=== PATIENT | female | born 1990 | race Caucasian/White ===

== ENCOUNTER 2019-08-15 11:17 | Outpatient (CLI) | payer OTHER, SELFPAY ==
[2019-08-15] VITALS (7 sets, daily range): BP systolic 116–124; BP diastolic 69–73; PULSE 80–92
[2019-08-15 11:55] LABS: Basophils Percent Auto 0.2 % (0.2-1.2); Eosinophils Absolute Auto 0.1 K/mm3 (0-0.3); Eosinophils Percent Auto 0.7 % (0-4.4); Hemoglobin 10.6 g/dL (12.0-15.0); Immature Granulocyte Absolute 0.06 K/mm3 (0.00-0.031); Immature Granulocyte Percent A 0.7 % (0-0.5); Lymphocytes Absolute Auto 1.51 K/mm3 (0.9-3.2); Mean Corpuscular HGB Conc 34.2 g/dl (32-36); Mean Corpuscular Hemoglobin 32.7 pg (26-34); Mean Corpuscular Volume 95.7 fl (80-100); Mean Platelet Volume 10.2 fl (7.4-10.4); Monocytes Absolute Auto 0.5 K/mm3 (0.1-0.6); Monocytes Percent Auto 5.9 % (2.6-8.5); Neutrophils Absolute Auto 6.7 K/mm3 (1.3-6.7); Neutrophils Percent Auto 75.5 % (45.5-73.1); Platelet Count Result 234 k/mm3 (150-375); Red Blood Count 3.24 M/mm3 (4.2-5.4); Red Cell Distribution Width 12.6 % (11.5-14.5); White Blood Count 8.9 K/mm3 (4.5-10.0)
[2019-08-15 12:05] LABS: Add Urine Microscopic? YES; Appearance Urine Clear (Clear); Bacteria Urine Trace /hpf; Bilirubin Urine Negative (Negative); Blood Urine 2+ (Negative); Color Urine Yellow (Yellow); Glucose Urine UA Negative (Negative); Ketones Urine Negative (Negative); Leukocyte Esterase Ur 2+ LEU/UL (NEGATIVE); Mucus Urine Rare /lpf; Nitrate Urine Negative (Negative); Protein Urine Negative (Negative); Squamous Epithelial Cell Urine Few /hpf (Few); Urobilinogen Urine Negative mg/dL (<2.0)
[2019-08-15 12:06] LABS: Alanine Aminotransferase 17 U/L (4-35); Albumin Level 3.2 g/dL (3.5-5.1); Alkaline Phosphatase 156 U/L (38-126); Aspartate Amino Transferase 18 U/L (14-36); Bilirubin,Total 0.5 mg/dL (0.2-1.3); Blood Urea Nitrogen 4 mg/dL (7-17); Calcium 8.2 mg/dL (8.4-10.2); Carbon Dioxide 19 mmol/L (22-30); Chloride 104 mmol/L (98-107); Estimated Glomerular Filt Rate > 60; Glucose 97 mg/dL (65-105); Potassium 3.1 mmol/L (3.4-5.0); Sodium 135 mmol/L (137-145); Uric Acid 5.4 mg/dL (2.5-7.5)
--- NOTE | 2019-08-15 13:34 | PC.NURSE ---
1117-Pt sent over from office for elevated bp. PI orders received.
--- NOTE | 2019-08-15 13:35 | PC.NURSE ---
1257- returned page. Read pt labs and bp's, discharge orders received and pt sent home with 24hr urine collection and instructed to start taking her Keflix again daily until delivery
== END 2019-08-15 13:10 | disposition home or self-care (01) ==
LOC: ANHOBOP 11:23 → ANHOBPP 11:26
PROVIDERS: PCP Family Medicine; Visit Provider Obstetrics & Gynecology
DX: O13.9 Gestational [pregnancy-induced] hypertension without significant proteinuria, unspecified trimester (principal); Z3A.00 Weeks of gestation of pregnancy not specified
CPT/HCPCS: 36415; 59025; 80053; 81001; 84550; 85025; 87086; 87088; 99199

== ENCOUNTER 2019-08-19 12:01 | Observation (INO) | payer OTHER, SELFPAY ==
[2019-08-19] VITALS (7 sets, daily range): BP systolic 114–131; BP diastolic 74–84; PULSE 77–84
[2019-08-19 13:24] LABS: Basophils Percent Auto 0.1 % (0.2-1.2); Eosinophils Absolute Auto 0.1 K/mm3 (0-0.3); Eosinophils Percent Auto 0.5 % (0-4.4); Hematocrit 31.2 % (37.0-47.0); Hemoglobin 10.5 g/dL (12.0-15.0); Immature Granulocyte Absolute 0.05 K/mm3 (0.00-0.031); Immature Granulocyte Percent A 0.5 % (0-0.5); Lymphocytes Absolute Auto 1.54 K/mm3 (0.9-3.2); Lymphocytes Percent Auto 16.5 % (18.3-44.2); Mean Corpuscular HGB Conc 33.7 g/dl (32-36); Mean Corpuscular Hemoglobin 32.5 pg (26-34); Mean Corpuscular Volume 96.6 fl (80-100); Mean Platelet Volume 10.1 fl (7.4-10.4); Monocytes Absolute Auto 0.6 K/mm3 (0.1-0.6); Neutrophils Absolute Auto 7.1 K/mm3 (1.3-6.7); Neutrophils Percent Auto 76.4 % (45.5-73.1); Platelet Count Result 243 k/mm3 (150-375); Red Blood Count 3.23 M/mm3 (4.2-5.4); Red Cell Distribution Width 12.8 % (11.5-14.5); White Blood Count 9.3 K/mm3 (4.5-10.0)
[2019-08-19 13:33] LABS: Creatinine Urine 79.5 mg/dL; Total Protein Urine Random 19 mg/dL
[2019-08-19 13:37] LABS: Lactate Dehydrogenase 410 U/L (313-618)
[2019-08-19 13:41] LABS: Alanine Aminotransferase 17 U/L (4-35); Alkaline Phosphatase 152 U/L (38-126); Aspartate Amino Transferase 19 U/L (14-36); Bilirubin,Total 0.5 mg/dL (0.2-1.3); Blood Urea Nitrogen 5 mg/dL (7-17); Calcium 8.6 mg/dL (8.4-10.2); Carbon Dioxide 24 mmol/L (22-30); Chloride 108 mmol/L (98-107); Estimated Glomerular Filt Rate > 60; Glucose 76 mg/dL (65-105); Potassium 3.9 mmol/L (3.4-5.0); Sodium 135 mmol/L (137-145); Uric Acid 5.2 mg/dL (2.5-7.5)
--- NOTE | 2019-08-22 11:37 | P.PNOB_ITS ---
OB - Triage/Final Diagnosis Evaluation Laboratory results: Laboratory Tests 08/19/19 08/19/19 08/19/19 13:12 13:12 13:12 WBC 9.3 RBC 3.23 L Hgb 10.5 L Hct 31.2 L MCV 96.6 MCH 32.5 MCHC 33.7 RDW 12.8 Plt Count 243 MPV 10.1 Immature Gran % (Auto) 0.5 Neut % (Auto) 76.4 H Lymph % (Auto) 16.5 L [place] % (Auto) 6.0 Eos % (Auto) 0.5 Baso % (Auto) 0.1 L Lymph # (Auto) 1.54 [place] # (Auto) 0.6 Eos # (Auto) 0.1 Baso # (Auto) 0.0 Abs Immat Gran (auto) 0.05 H Absolute Neuts (auto) 7.1 H Absolute Nucleated RBC 0.0 Nucleated RBC % 0.0 Sodium 135 L Potassium 3.9 Chloride 108 H Carbon Dioxide 24 BUN 5 L Creatinine 0.70 Estim Creat Clear Calc Not Reportable Estimated GFR > 60 Glucose 76 Uric Acid 5.2 Calcium 8.6 Total Bilirubin 0.5 AST 19 ALT 17 Alkaline Phosphatase 152 H Lactate Dehydrogenase Total Protein 6.0 L Albumin 3.0 L U Random Total Protein 19 Urine Creatinine 79.5 08/19/19 13:12 WBC RBC Hgb Hct MCV MCH MCHC RDW Plt Count MPV Immature Gran % (Auto) Neut % (Auto) Lymph % (Auto) [place] % (Auto) Eos % (Auto) Baso % (Auto) Lymph # (Auto) [place] # (Auto) Eos # (Auto) Baso # (Auto) Abs Immat Gran (auto) Absolute Neuts (auto) Absolute Nucleated RBC Nucleated RBC % Sodium Potassium Chloride Carbon Dioxide BUN Creatinine Estim Creat Clear Calc Estimated GFR Glucose Uric Acid Calcium Total Bilirubin AST ALT Alkaline Phosphatase Lactate Dehydrogenase 410 Total Protein Albumin U Random Total Protein Urine Creatinine Final Diagnosis (1) False labor: Code(s): O47.9 - False labor, unspecified Status: Acute
== END 2019-08-19 15:00 | disposition home or self-care (01) ==
PROVIDERS: Admitting Provider Obstetrics & Gynecology; PCP Family Medicine; Visit Provider Obstetrics & Gynecology
DX: O47.03 False labor before 37 completed weeks of gestation, third trimester (principal); Z3A.36 36 weeks gestation of pregnancy
CPT/HCPCS: 36415; 80053; 82570; 83615; 84156; 84550; 85025; G0378; G0379

== ENCOUNTER 2019-08-25 17:50 | Inpatient (IN) | payer OTHER, SELFPAY ==
[2019-08-25] VITALS (15 sets, daily range): BP systolic 121–137; BP diastolic 81–101; PULSE 80–105; TEMP 37.2; BMI 34.4
[2019-08-25 18:38] LABS: Basophils Percent Auto 0.2 % (0.2-1.2); Eosinophils Absolute Auto 0.1 K/mm3 (0-0.3); Eosinophils Percent Auto 0.8 % (0-4.4); Hematocrit 32.3 % (37.0-47.0); Immature Granulocyte Absolute 0.06 K/mm3 (0.00-0.031); Immature Granulocyte Percent A 0.6 % (0-0.5); Lymphocytes Percent Auto 18.9 % (18.3-44.2); Mean Corpuscular HGB Conc 34.1 g/dl (32-36); Mean Corpuscular Hemoglobin 32.5 pg (26-34); Mean Corpuscular Volume 95.6 fl (80-100); Mean Platelet Volume 10.3 fl (7.4-10.4); Monocytes Absolute Auto 0.7 K/mm3 (0.1-0.6); Monocytes Percent Auto 6.7 % (2.6-8.5); Neutrophils Absolute Auto 7.3 K/mm3 (1.3-6.7); Neutrophils Percent Auto 72.8 % (45.5-73.1); Platelet Count Result 272 k/mm3 (150-375); Red Blood Count 3.38 M/mm3 (4.2-5.4); Red Cell Distribution Width 12.7 % (11.5-14.5)
[2019-08-25] MEDS: DINOPROSTONE 10 MG VAG INSERT VAGINAL (18:43)
--- NOTE | 2019-08-25 18:52 | LDADM ---
This patient, Erum Wallis, was admitted to Labor/Delivery/Recovery 108 on 08/25/19 at 17:50. Plans for labor, pain management and were discussed with patient. Patient/family oriented to hospital policies and general routines including ID bracelet, bed and alarms, visiting hours, pain management, procedures, bathroom and other care routines, personal items, smoking policy, room service/diet and guest tray routines, infant security routines, and visiting hours. Patient/Family are encouraged to report perceived risks to care and to ask questions if they do not understand what they are told or what they should do. See OBIX for further documentation.
[2019-08-26] VITALS (40 sets, daily range): BP systolic 112–146; BP diastolic 74–97; PULSE 70–112; RESP 16; TEMP 36.6–37.3
[2019-08-26] MEDS: OXYTOCIN 30 UNITS/NS 500 ML 30 UNITS/500 ML BAG IV CONT (07:33)
[2019-08-26] MEDS: LACTATED RINGERS 1,000 ML 125 ML IV CONT (07:33)
--- NOTE | 2019-08-26 11:07 | WPDOBADMIT ---
Obstetrics - Admit Note Admission Note: AROM clear fluid 1/thick/ -2 vertex record reviewed. No pertinent additions to the history and/or any subsequent changes in the physical findings that are not consistent with the expected course of the were found. Additions to the history and/or subsequent changes in the physical findings follow. None.
--- NOTE | 2019-08-26 17:15 | P.PCNOB_ITS ---
OB - Delivery Note Procedure Delivery date: 08/26/19 Procedure: (breech) events: Pre-Eclampsia and Labor Induction Induction method: AROM, per misoprostol protocol and per pitocin protocol Route of delivery: breech extraction Laceration description: None Estimated blood loss (mL): 150 Disposition: floor Complications: Patient noted breech at 6 cm. patient made rapid change and moved to OR for and noted to be . delivered Breech. [place] Baby Date of : 08/26/19 Time of : 16:24 Weeks of gestation at delivery: 37 Infant gender: Female Weight (pounds): 5 Weight (ounces): 6 presentation: reyna breech cord vessel description: 3 Vessels score one minute: 2 score five minutes: 8
--- NOTE | 2019-08-26 17:19 | PM.OBDSVD ---
OB - DS: Summary OB Procedures : NST, PIH Mgmt and Ultrasound OB Procedures Intrapartum: Spontaneous Vag Delivery and Breech extraction OB Procedures: : None Peripartum Data Infant Delivery Method: Natural Vaginal Laceration description: None complications: none Status at Discharge Overall status at discharge: patient is progressing back to baseline Time Spent with Patient Time attestation: Total time spent providing and/or coordinating discharge services: DS: Data Data Completed and Pending Labs on day of discharge: Labs from last 24 hours 08/25/19 08/25/19 08/25/19 18:32 18:32 18:32 WBC 10.0 RBC 3.38 L Hgb 11.0 L Hct 32.3 L MCV 95.6 MCH 32.5 MCHC 34.1 RDW 12.7 Plt Count 272 MPV 10.3 Immature Gran % (Auto) 0.6 H Neut % (Auto) 72.8 Lymph % (Auto) 18.9 [place] % (Auto) 6.7 Eos % (Auto) 0.8 Baso % (Auto) 0.2 Lymph # (Auto) 1.90 [place] # (Auto) 0.7 H Eos # (Auto) 0.1 Baso # (Auto) 0.0 Abs Immat Gran (auto) 0.06 H Absolute Neuts (auto) 7.3 H Absolute Nucleated RBC 0.0 Nucleated RBC % 0.0 RPR Pending Blood Type O Positive Antibody Screen Negative Discharge Plan Discharge Attending physician on discharge: Jah Zarate Discharging Clinician: Marialuisa Mac Anticipated Discharge Date/Time: 08/28/19 07:53 Patient Disposition: Home, Self-Care Activity: may shower and pelvic rest Diet: regular Discharge Instructions: Education: Mom and Baby Guide Given to: Mother Follow-Up: Call your delivering provider's office for an appointment to be seen in: 1 Week Mom and baby should come to the [facility] for the follow-up appointment. Appointment Date/Time: August 29, 2019 at 10:00 am What to expect at your follow-up visit: Blood Pressure Check Call [phone] if you are unable to keep your appointment time. BREAST CARE: 1. Wear a snug supportive bra. 2. For engorgement discomfort: Bottle Feeding: A. May apply ice packs PERINEAL CARE: 1. Until bleeding stops, use your kristina bottle after urinating 2. Change your pad frequently throughout the day 3. You may take sitz baths several times a day (fill your bathtub with warm water and soak for 20 minutes.) Do NOT bathe in the water 4. No tub baths until seen by your physician - You may shower ACTIVITY: 1. Rest as much as possible. 2. Do not exercise or lift anything heavier than your baby (such as laundry or other children.) 3. Avoid stairs or driving as much as possible. 4. Do not put anything into the vagina. No douching, tampons, or sexual activity until seen by physician. NOTIFY PHYSICIAN IF YOU HAVE ANY QUESTIONS OR IF ANY OF THE FOLLOWING SYMPTOMS OCCUR: 1. If your perineum becomes red, swollen, or more painful than what you have experienced in the hospital. 2. If your vaginal bleeding becomes foul smelling. 3. If your vaginal bleeding becomes more heavy than a period or if your bleeding changes from pink to bright red. However, you may pass an occasional walnut-sized clot once or twice for the first week . 4. If you experience a sharp, shooting pain in you calves. 5. If you discover a hard, reddened area on your breast or if you experience flu-like symptoms. 6. Call for temp 100.4 or greater DIET: 1. Eat regular, well-balanced meals. 2. Drink plenty of fluids daily. If , drink to thirst. Patient Instructions: Antibiotic Form Stand Alone Forms: General Discharge Information Follow-up/Referrals: Jah Zarate MD [Physician] - 1 Week Discharge Medications: New norethindrone ac-eth estradiol [07/02 (21)] 1-20 mg-mcg tablet 1 tablet PO DAILY Qty: 21 RF: 6 Continued PNV cmb#95-ferrous fumarate-FA [] 28 mg iron- 800 mcg Tablet 1 tablet PO DAILY RF: 0 Date of admission: 08/25/19 17:50 Primary Care Provider: Teresa
[2019-08-26] MEDS: IBUPROFEN 600 MG TABLET PO (17:23)
[2019-08-26] MEDS: OXYTOCIN 30 UNITS/NS 500 ML 30 UNITS/500 ML BAG 125 UNITS IV CONT (17:23)
[2019-08-26] MEDS: BENZOCAINE 20% AER SPR (*SP) 56 GM CAN 1 SPRAY TOPICAL (17:24)
[2019-08-26] MEDS: WITCH HAZEL 40 PADS 1 PAD TOPICAL (17:24)
[2019-08-27] MEDS: IBUPROFEN 600 MG TABLET PO ×3 (04:40→20:29)
[2019-08-27 05:27] LABS: Hematocrit 30.2 % (37.0-47.0); Hemoglobin 10.1 g/dL (12.0-15.0)
[2019-08-27 07:30] VITALS: BP 137/90; PULSE 82; RESP 18; TEMP 36.9
--- NOTE | 2019-08-27 08:26 | P.PNOB_ITS ---
OB - PN: Subj Subjective Date/time seen: 08/27/19 08:26 Patient comments: no complaints and pain well controlled OB - PN: Obj Data Labs CBC & Chem 7: 08/27/19 04:35 Labs: Laboratory Results - last 24 hr 08/27/19 04:35 Hgb 10.1 L Hct 30.2 L OB - PN A/P Assessment and Plan (1) Preeclampsia: Code(s): O14.90 - Unspecified pre-eclampsia, unspecified trimester Status: Acute Assessment and Plan: BP normal no symptoms (2) (normal spontaneous vaginal delivery): Code(s): O80 - Encounter for full-term uncomplicated delivery Status: Acute Assessment and Plan: Doing well. Continue care Time Spent With Patient Time: Total time spent is greater than 50% in coordination of care (as d ocumented) at patient's floor/unit and/or counseling patient: Exam : Bimanual exam- vagina & uterus: other (Uterus firm, nt @U)
[2019-08-27 09:40] LABS: Rapid Plasma Reagin Non-Reactive (NonReactive)
[2019-08-27 19:18] VITALS: BP 125/86; PULSE 90; RESP 16; TEMP 36.8
[2019-08-28 07:50] VITALS: BP 128/80; PULSE 82; RESP 18; TEMP 37.2; O2SAT 99
--- NOTE | 2019-08-28 07:51 | PM.OBPNVD ---
OB - PN: Subj Subjective Date/time seen: 08/28/19 07:51 Patient comments: no complaints baby status: doing well [place] feeding status: exclusively bottle feeding OB - PN: Obj Data Labs CBC & Chem 7: 08/27/19 04:35 Labs: Laboratory Results - last 24 hr 08/25/19 18:32 RPR Non-reactive OB - PN A/P Assessment and Plan (1) (normal spontaneous vaginal delivery): Code(s): O80 - Encounter for full-term uncomplicated delivery Status: Acute Assessment and Plan: Doing well. DC home. Plans 07/02 (2) Preeclampsia: Code(s): O14.90 - Unspecified pre-eclampsia, unspecified trimester Status: Acute Assessment and Plan: BP stable. F/u 1 wk Plan day: 2 Plan: discharge home Time Spent With Patient Time: Total time spent is greater than 50% in coordination of care (as documented) at patient's floor/unit and/or counseling patient: Exam : Bimanual exam- vagina & uterus: other (Uterus firm, nt @U)
[2019-08-28 09:30] VITALS: PULSE 82; RESP 18; O2SAT 99
--- NOTE | 2019-08-28 09:30 | PC.NURSE ---
PT introductions made and plan of care discussed per post , pain management, bottle feeding, daily care activities and pending discharge to home. PT verbalized understanding of such care.
[2019-08-28] MEDS: IBUPROFEN 600 MG TABLET PO (09:40)
[2019-08-28] MEDS: DOCUSATE SODIUM 100 MG CAPSULE PO (09:41)
--- NOTE | 2019-08-28 11:00 | PC.NURSE ---
Pt received discharge instructions per protocol and verbalized understanding of such instructions.
--- NOTE | 2019-08-28 11:30 | PC.NURSE ---
PT discharged to home ambulatory accompanied by spouse and to waiting car. Follow up appts confirmed
[2019-08-29 10:14] VITALS: BP 127/78; PULSE 68; RESP 20; TEMP 36.8
== END 2019-08-28 11:30 | disposition home or self-care (01) | DRG 560 ==
LOC: ANHLDR 08-26 17:19 → ANHOB2 08-28 07:54 → ANHLDR 08-29 09:05 → ANHOB2 08-29 09:05
PROVIDERS: Admitting Provider Obstetrics & Gynecology; PCP Family Medicine; Visit Provider Obstetrics & Gynecology Gynecology
DX: O14.94 Unspecified pre-eclampsia, complicating childbirth (principal); Z37.0 Single live birth; Z3A.37 37 weeks gestation of pregnancy; O32.1XX0 Maternal care for breech presentation, not applicable or unspecified; O76 Abnormality in fetal heart rate and rhythm complicating labor and delivery
CPT/HCPCS: 36415; 85014; 85018; 85025; 86592; 86850; 86900; 86901; 88307; A9270; J2274; J2590; J7120

== ENCOUNTER 2019-12-28 16:06 | Outpatient (CLI) | payer OTHER, SELFPAY ==
--- NOTE | ~2019-12-28 | US_ITS ---
. EXAMINATION: US OB <= 14 weeks fetus DATE: 12/28/2019 16:58 INDICATION: Uncertain dates. TECHNIQUE: Real-time transabdominal pelvic ultrasound was performed. COMPARISON: None. FINDINGS: The uterus measures 14.7 x 7.3 x 8.5 cm. There is an intrauterine gestational sac. The crown ru mp length measures 3.6 cm, which correlates with an estimated gestational age of 10 weeks and 4 day(s ) (+/-) 1 week(s) and 0 day(s). heart motion is identified measuring 163 beats per minute (bpm) by M-mode Doppler. The ovaries are not visualized. There is no free fluid in the pelvis. IMPRESSION: 1. Single living intrauterine gestation with estimated date of delivery of 07/21/2020. Reviewed, dictated and finalized at location A. IMPRESSION: 1. Single living intrauterine gestation with estimated date of delivery of 07/21.
== END 2019-12-28 16:07 | disposition home or self-care (01) ==
LOC: ANHIMG 16:12
PROVIDERS: PCP Family Medicine; Visit Provider Obstetrics & Gynecology
DX: Z36.9 Encounter for antenatal screening, unspecified (principal); Z3A.10 10 weeks gestation of pregnancy
CPT/HCPCS: 76801

== ENCOUNTER 2020-01-06 13:28 | Outpatient (CLI) | payer OTHER, SELFPAY ==
[2020-01-06 13:46] VITALS: BMI 35.1
[2020-01-06 14:14] LABS: Basophils Percent Auto 0.2 % (0.2-1.2); Eosinophils Absolute Auto 0.1 K/mm3 (0-0.3); Eosinophils Percent Auto 0.7 % (0-4.4); Hematocrit 36.4 % (37.0-47.0); Hemoglobin 12.7 g/dL (12.0-15.0); Immature Granulocyte Absolute 0.02 K/mm3 (0.00-0.031); Immature Granulocyte Percent A 0.2 % (0-0.5); Lymphocytes Absolute Auto 1.45 K/mm3 (0.9-3.2); Lymphocytes Percent Auto 17.4 % (18.3-44.2); Mean Corpuscular HGB Conc 34.9 g/dl (32-36); Mean Corpuscular Hemoglobin 32.2 pg (26-34); Mean Corpuscular Volume 92.4 fl (80-100); Mean Platelet Volume 10.3 fl (7.4-10.4); Monocytes Absolute Auto 0.4 K/mm3 (0.1-0.6); Neutrophils Absolute Auto 6.4 K/mm3 (1.3-6.7); Neutrophils Percent Auto 76.5 % (45.5-73.1); Platelet Count Result 252 k/mm3 (150-375); Red Blood Count 3.94 M/mm3 (4.2-5.4); Red Cell Distribution Width 12.3 % (11.5-14.5); White Blood Count 8.4 K/mm3 (4.5-10.0)
[2020-01-06 14:24] LABS: Partial Thromboplastin Time 31.2 SECONDS (22.3-36.8)
[2020-01-06 14:38] LABS: Alanine Aminotransferase 18 U/L (4-35); Albumin Level 3.7 g/dL (3.5-5.1); Alkaline Phosphatase 75 U/L (38-126); Anion Gap 12.6 mmol/L (7-16); Aspartate Amino Transferase 18 U/L (14-36); Bilirubin,Total 0.4 mg/dL (0.2-1.3); Blood Urea Nitrogen 11 mg/dL (7-17); Carbon Dioxide 22 mmol/L (22-30); Chloride 104 mmol/L (98-107); Estimated CRCL calculation 126 ml/min; Estimated Glomerular Filt Rate > 60; Glucose 109 mg/dL (65-105); Potassium 3.6 mmol/L (3.4-5.0); Sodium 135 mmol/L (137-145); Uric Acid 4.2 mg/dL (2.5-7.5)
[2020-01-06 14:47] LABS: Lactate Dehydrogenase 347 U/L (313-618)
[2020-01-06 14:54] LABS: Collection Time Urine 24 HOURS
[2020-01-06 14:56] LABS: Total Volume 24 Hour Urine 1700 ml
[2020-01-06 14:57] LABS: Patient Weight 198 Lbs
[2020-01-06 15:02] LABS: Vitamin D 25 Hydroxy 31.8 ng/mL
[2020-01-06 15:07] LABS: HIV 1/2 Ab P24 Ag Result Negative (Negative)
[2020-01-06 15:08] LABS: Creatinine Clearance Urine 131.1 ml/min (75-125); Creatinine Urine 73.9 mg/dL; Total Protein Urine 24 Hr 255 MG/DAY (28-141); Total Protein Urine Random 15 mg/dL
[2020-01-06 15:24] LABS: Hepatitis B Surface Antigen Negative (Negative); Rubella IgG Antibody 11.1 IU/ML
[2020-01-07 10:07] LABS: Rapid Plasma Reagin Non-Reactive (NonReactive)
[2020-01-07 13:16] LABS: Hemoglobin A1C 4.7 % (<5.7)
== END 2020-01-06 13:29 | disposition home or self-care (01) ==
LOC: ANHOBOP 13:34
PROVIDERS: PCP Family Medicine; Visit Provider Obstetrics & Gynecology
DX: O13.9 Gestational [pregnancy-induced] hypertension without significant proteinuria, unspecified trimester (principal); Z3A.00 Weeks of gestation of pregnancy not specified
CPT/HCPCS: 36415; 80053; 81050; 82306; 82575; 83036; 83615; 84156; 84550; 85025; 85730; 86592; 86703; 86762; 86850; 86900; 86901; 87340; G0432

== ENCOUNTER 2020-02-05 18:56 | Emergency (ER) | payer OTHER, SELFPAY ==
[2020-02-05 19:03] VITALS: BP 134/80; PULSE 95; RESP 16; TEMP 36.7; O2SAT 99
--- NOTE | 2020-02-05 19:18 | PC.NURSE ---
pt c/o abdominal cramping, dysuria and frequency. hx of UTI's. pt states she is currently 16 weeks . denies any vaginal bleeding. denies any other sx at this time.
[2020-02-05 19:21] LABS: Add Urine Microscopic? YES; Appearance Urine Cloudy (Clear); Bacteria Urine Trace /hpf; Bilirubin Urine Negative (Negative); Blood Urine 1+ (Negative); Color Urine Yellow (Yellow); Glucose Urine UA Negative (Negative); Ketones Urine Negative (Negative); Leukocyte Esterase Ur 1+ LEU/UL (Negative); Mucus Urine Rare /lpf; Nitrate Urine Negative (Negative); Protein Urine Negative (Negative); RBC Urine 21-50 /hpf (0-2); Specific Grav Ur 1.016 (1.001-1.035); Squamous Epithelial Cell Urine Moderate /hpf (Few); Urobilinogen Urine Negative mg/dL (<2.0)
[2020-02-05 20:07] VITALS: PULSE 78; RESP 18; O2SAT 99
--- NOTE | 2020-02-05 20:13 | ED.FEMALEGU ---
HPI - Female Genitourinary General Chief complaint: Urogenital-Female <Courtney Lee PA-C - Last Filed: 02/05/20 20:16> Stated complaint: uti, 16 wks . <Courtney Lee PA-C - Last Filed: 02/05/20 20:16> Time Seen by Provider: 02/05/20 19:14 <Courtney Lee PA-C - Last Filed: 02/05/20 20:16> Source: patient <Courtney Lee PA-C - Last Filed: 02/05/20 20:16> Mode of arrival: ambulatory <MIGUEL Field Last Filed: 02/05/20 20:16> Limitations: no limitations <Courtney Lee PA-C - Last Filed: 02/05/20 20:16> History of Present Illness HPI Narrative: Patient presents with chief complaint of burning with urination and frequency that began this morning. Patient states that she is 16 weeks . Patient denies noting blood in her urine or abnormal color. Patient denies fever, chills, nausea, vomiting, diarrhea or any other symptoms. Patient denies vaginal bleeding or discharge. Patient states her FURNITURE MOVER is Dr. Zarate. <Courtney Lee PA-C - Last Filed: 02/05/20 20:16> Related Data Home medications: Home Medications Medication Instructions Recorded Confirmed PNV cmb#95-ferrous fumarate-FA 1 tablet PO DAILY 08/18/19 08/18/19 [] <Courtney Lee PA-C - Last Filed: 02/05/20 20:16> Allergies/Adverse reactions: Allergies Allergy/AdvReac Type Severity Reaction Status Date / Time Penicillins Allergy Unknown Hives Verified 02/05/20 18:58 <MIGUEL Field Last Filed: 02/05/20 20:16> Review of Systems Review of Systems: Narrative: CONSTITUTIONAL: Denies fever, chills, or sweats. EYES: Denies visual changes, redness, or discharge. ENT: Denies rhinorrhea, congestion, sore throat, or otalgia. CARDIOVASCULAR: Denies chest pain, palpitations, or edema. RESPIRATORY: Denies cough or dyspnea. GASTROINTESTINAL: Denies abdominal pain or diarrhea. GENITOURINARY: Reports dysuria denies hematuria. SKIN: Denies rash or itching. MUSCULOSKELETAL: Denies back pain, joint pain, or myalgia. NEUROLOGIC: Denies headache, numbness, dizziness, or weakness. PSYCHIATRIC: Denies anxiety or depression. <Courtney Lee PA-C - Last Filed: 02/05/20 20:16> PMFSH Family History Family History: Family History (Updated 08/18/19 @ 13:26 by Cesar Grant RN) Other No pertinent family history <Courtney Lee PA-C - Last Filed: 02/05/20 20:16> Social History Social History: Social History Smoking status: Never smoker Second hand tobacco smoke exposure: No Alcohol intake: never Substance use: never Gender identity (if verbalized by the patient): Female Spiritual care concerns: No <Courtney Lee PA-C - Last Filed: 02/05/20 20:16> Exam Narrative: Exam Narrative: GENERAL: Well-appearing, well-nourished, and in no acute distress. HEAD: Normocephalic, atraumatic. EYES: PERRLA and EOMI. ENT: Nares clear, no rhinorrhea or epistaxis. Mucous membranes moist. Oropharynx without tonsillar hypertrophy exudate or other lesions. Bilateral TMs pearly gonsales nonbulging NECK: Supple. No adenopathy or masses. No carotid bruits or JVD CHEST: Clear to auscultation. No respiratory distress. No wheezes rales or rhonchi HEART: Regular rate and rhythm. ABDOMEN: Soft, nontender, nondistended, normal active bowel sounds. EXTREMITIES: Normal range of motion. No edema. SKIN: Warm, dry, no rash. NEURO: No focal deficits. Alert and oriented x3. PSYCH: Normal mood and affect. <Courtney Lee PA-C - Last Filed: 02/05/20 20:16> Course Vital Signs Vital signs: Vital Signs Temperature 36.7 C 02/05/20 19:03 Pulse Rate 95 02/05/20 19:03 Respiratory Rate 16 02/05/20 19:03 Blood Pressure 134/80 02/05/20 19:03 Pulse Oximetry 99 02/05/20 19:03 Temperature 36.7 C 02/05/20 19:03 Pulse Rate 78 02/05/20 20:07 Respiratory Rate 18 02/05/20 20:07 Blood Pressure 134/80 02/05/20 19:03 Pulse Oximetry 99 02/05/20
== END 2020-02-05 20:08 | disposition home or self-care (01) ==
PROVIDERS: Emergency Medicine; Emergency Provider Emergency Medicine; PCP Family Medicine
DX: O23.42 Unspecified infection of urinary tract in pregnancy, second trimester (principal); Z3A.16 16 weeks gestation of pregnancy
CPT/HCPCS: 81001; 87086; 87088; 99283

== ENCOUNTER 2020-02-24 15:14 | Outpatient (CLI) | payer OTHER, SELFPAY ==
[2020-02-24 15:28] VITALS: BMI 34.2
[2020-02-24 15:41] LABS: Alanine Aminotransferase 15 U/L (4-35); Albumin Level 3.2 g/dL (3.5-5.1); Alkaline Phosphatase 78 U/L (38-126); Anion Gap 7 mmol/L (8-16); Aspartate Amino Transferase 17 U/L (14-36); Bilirubin,Total 0.4 mg/dL (0.2-1.3); Blood Urea Nitrogen 7 mg/dL (7-17); Calcium 8.4 mg/dL (8.4-10.2); Carbon Dioxide 22 mmol/L (22-30); Chloride 106 mmol/L (98-107); Estimated CRCL calculation 147 ml/min; Estimated Glomerular Filt Rate > 60; Glucose 112 mg/dL (65-105); Potassium 3.7 mmol/L (3.4-5.0); Sodium 135 mmol/L (137-145); Uric Acid 4.1 mg/dL (2.5-7.5)
[2020-02-24 16:54] LABS: Collection Time Urine 24 HOURS
[2020-02-24 17:01] LABS: Patient Weight 193 Lbs
[2020-02-24 17:02] LABS: Total Volume 24 Hour Urine 1500 ml
[2020-02-24 17:12] LABS: Creatinine Urine 72.7 mg/dL; Total Protein Urine 24 Hr 240 MG/DAY (28-141); Total Protein Urine Random 16 mg/dL
== END 2020-02-24 15:15 | disposition home or self-care (01) ==
LOC: ANHOBOP 15:18
PROVIDERS: PCP Family Medicine; Visit Provider Obstetrics & Gynecology
DX: Z36.89 Encounter for other specified antenatal screening (principal); Z87.59 Personal history of other complications of pregnancy, childbirth and the puerperium
CPT/HCPCS: 36415; 80053; 81050; 82575; 84156; 84550

== ENCOUNTER 2020-03-19 19:04 | Observation (INO) | payer OTHER, SELFPAY ==
--- NOTE | 2020-03-19 19:04 | OBADM ---
This patient, Erum Wallis, admitted to the OB room OB Post 116 for observation. Patient/family oriented to hospital policies and general routines including ID bracelet, bed and alarms, visiting hours, pain management, procedures, bathroom and other care routines, personal items, smoking policy, room service/diet, and visiting hours. Patient/Family are encouraged to report perceived risks to care and to ask questions if they do not understand what they are told or what they should do.
[2020-03-19 19:35] VITALS: BMI 33.9
[2020-03-19 19:36] VITALS: BP 108/76; PULSE 92; RESP 20; TEMP 36.6
[2020-03-19 19:46] VITALS: BP 119/74; PULSE 91
[2020-03-19 20:01] VITALS: BP 120/75; PULSE 96
--- NOTE | 2020-04-11 15:56 | PM.OBTRLD ---
OB - Triage/Final Diagnosis Final Diagnosis (1) Fall (on) (from) other stairs and steps, initial encounter: Code(s): W10.8XXA - Fall (on) (from) other stairs and steps, initial encounter Status: Acute
== END 2020-03-19 20:40 | disposition home or self-care (01) ==
PROVIDERS: Admitting Provider Obstetrics & Gynecology; PCP Family Medicine; Visit Provider Obstetrics & Gynecology
DX: O26.899 Other specified pregnancy related conditions, unspecified trimester (principal); W10.8XXA Fall (on) (from) other stairs and steps, initial encounter; Z3A.00 Weeks of gestation of pregnancy not specified
CPT/HCPCS: 84112; G0378; G0379

== ENCOUNTER 2020-06-11 11:55 | Outpatient (RCR) | payer OTHER, SELFPAY ==
[2020-06-03 17:03] VITALS: BP 122/79; PULSE 104
[2020-06-07 09:31] VITALS: BP 134/67; PULSE 99
--- NOTE | ~2020-06-11 | US_ITS ---
EXAMINATION: US OB limited w BPP EXAM DATE: 06/07/2020 09:20 INDICATION: Nonreactive stress test. 3rd trimester. TECHNIQUE: Pelvic obstetrical transabdominal sonogram was performed by a technologist. There are mu ltiple grayscale and Doppler images available for interpretation. Comparison is made to prior examina tion from 06/03/2020. FINDINGS: There is a single fetus identified in vertex presentation with a heart rate of 145 beats pe r minute. The placenta is located in the anterior position. There is no sonographic evidence of retr oplacental hemorrhage identified. The amniotic fluid index is 13.4 centimeters, which is normal. Plac ental margin to internal cervical os distance is 4.8 cm. BIOPHYSICAL PROFILE (performed by the technologist) breathing (30 sec sustained breathing in 30 minutes): 2 out of 2 movement (3 gross body movements in 30 minutes): 2 out of 2 tone (one episode of goslyqj-yxeiiywhx-zntxcce limb movement): 2 out of 2 Amniotic fluid pocket (2 cm): 2 out of 2 Total score: 8 out of 8 IMPRESSION: 1. Single fetus with heart rate of 144 bpm. 2. Normal biophysical profile score of 8 out of 8. Reviewed, dictated and finalized at location A. Y MACHINE TENDER
--- NOTE | ~2020-06-11 | US_ITS ---
US OB BPP wo non-stress DATE: 06/11/2020 13:45 INDICATION: Nonreactive nonstress test in office TECHNIQUE: Real-time imaging and Doppler analysis COMPARISON: 06/07/2020 obstetrical ultrasound with biophysical profile FINDINGS: [place] intrauterine gestation, fetus in longitudinal lie, vertex presentation, feta l heart rate of 155 bpm. Anterior placenta. BIOPHYSICAL PROFILE reported by train control electronic technician: breathin out of 2 movement: 2 out of 2 tone: 2 out of 2 Amniotic fluid pocket: 2 out of 2 Total score: 8 out of 8 IMPRESSION: Normal biophysical profile score of 8 out of 8 Reviewed, dictated and finalized at Location A. Reviewed, dictated and finalized at location A. NARY INSTRUCTOR
--- NOTE | ~2020-06-11 | US_ITS ---
EXAMINATION: US OB BPP wo non-stress DATE: 06/03/2020 17:22 TRACK SURFACING MACHINE OPERATOR INDICATION: Nonreactive NST. TECHNIQUE: Real-time transabdominal obstetric ultrasound. FINDINGS: No prior studies for comparison. There is a single living fetus in vertex presentation. The placenta is anterior without placenta pre via. cardiac activity and movement is noted with a heart rate of 142 beats per minute. Biophysical profile: breathin of 2 movement: 2 of 2 tone: 2 of 2 Amniotic flud pocket: 2 of 2 Total score: 8 of 8 IMPRESSION: 1. Single living intrauterine in vertex presentation. 2: Total biophysical profile score of 8/8. Reviewed, dictated and finalized at location A. K SURFACING MACHINE OPERATOR
[2020-06-11 14:44] VITALS: BP 126/79; PULSE 96
== END 2020-07-11 07:33 | disposition home or self-care (01) ==
LOC: ANHOBOP 11:55
PROVIDERS: PCP Family Medicine; Visit Provider Obstetrics & Gynecology
DX: O14.93 Unspecified pre-eclampsia, third trimester (principal); O16.3 Unspecified maternal hypertension, third trimester; O24.419 Gestational diabetes mellitus in pregnancy, unspecified control; Z3A.33 33 weeks gestation of pregnancy; Z3A.34 34 weeks gestation of pregnancy
CPT/HCPCS: 59025; 76815; 76819

== ENCOUNTER 2020-06-26 16:42 | Emergency (ER) | payer OTHER, SELFPAY ==
[2020-06-26 17:01] VITALS: BP 144/87; PULSE 93; RESP 20; TEMP 36; O2SAT 100
--- NOTE | 2020-06-26 17:11 | ED.URI ---
HPI - URI/Sore Throat General Chief Complaint: Upper Respiratory Infection Stated Complaint: sore throat Time Seen by Provider: 06/26/20 17:04 Source: patient and RN notes reviewed Mode of arrival: ambulatory Limitations: no limitations History of Present Illness HPI Narrative: Patient presents today complaining of sore throat that started today. Denies fever, cough, congestion, rhinorrhea, headache, nausea, vomiting, diarrhea. Reports slight left ear pain. Currently rates her pain 6/10 and has tried no cscw-qen-dxhodzj medication prior to arrival. was diagnosed with strep throat today. Patient is currently 36 weeks . MD elicited complaint: sore throat Related Data Home Medications Medication Instructions Recorded Confirmed PNV cmb#95-ferrous fumarate-FA 1 tablet PO DAILY 08/18/19 06/26/20 [] ergocalciferol (vitamin D2) 50,000 unit PO WEEKLY 03/19/20 06/26/20 aspirin 81 mg PO DAILY 06/25/20 06/25/20 Allergies Allergy/AdvReac Type Severity Reaction Status Date / Time Penicillins Allergy Unknown Hives Verified 06/26/20 16:51 Review of Systems Review of Systems: Narrative: CONSTITUTIONAL: Denies body aches, fever, chills, or sweats. EYES: Denies visual changes, redness, or discharge. ENT: Denies rhinorrhea, congestion. + Sore throat, left ear pain CARDIOVASCULAR: Denies chest pain, palpitations, or edema. RESPIRATORY: Denies cough or dyspnea. GASTROINTESTINAL: Denies abdominal pain, nausea, vomiting, or diarrhea. GENITOURINARY: Denies dysuria or hematuria. SKIN: Denies rash, itching, or wounds. MUSCULOSKELETAL: Denies back pain, joint pain, or myalgia. NEUROLOGIC: Denies headache, numbness, tingling, or weakness. PSYCH: Denies depression or anxiety. [facility] Past Medical History Medical History (Updated 06/26/20 @ 17:32 by Beverly Cassidy, [facility], ) Fall (on) (from) other stairs and steps, initial encounter History of pre-eclampsia Family History Family History (Updated 08/18/19 @ 13:26 by Ceasr Grant, [facility]) Other No pertinent family history Social History Social History Smoking status: Never smoker Second hand tobacco smoke exposure: No Alcohol intake: never Substance use: never Gender identity (if verbalized by the patient): Female Spiritual care concerns: No Comments At time of signature, I have reviewed and agree with nursing past medical, surgical, social and family history unless otherwise noted. Please see nursing chart for further information. There is no relevant family history pertinent to the presenting complaint Exam Narrative: Exam Narrative: GENERAL: Well-appearing, well-nourished, and in no acute distress. HEAD: Normocephalic, atraumatic. EYES: EOMI. No redness or drainage. Conjunctivae normal. ENT: Mucous membranes pink and moist. Nares clear. No rhinorrhea. TMs normal bilaterally. Throat normal. Uvula midline. NECK: Normal AROM. Supple. No lymphadenopathy. CHEST: No respiratory distress. Clear to auscultation. HEART: Regular rate and rhythm. No murmur appreciated. Normal peripheral pulses. ABDOMEN: Gravid abdomen EXTREMITIES: Normal range of motion. SKIN: Warm, dry, no rash. Capillary refill normal. Normal skin turgor. NEURO: No focal deficits. Alert and oriented x3. Gait steady. PSYCH: Normal affect. No signs of depression or anxiety. Course Vital Signs Vital signs: Vital Signs Temperature 96.8 F L 06/26/20 17:01 Pulse Rate 93 06/26/20 17:01 Respiratory Rate 20 06/26/20 17:01 Blood Pressure 144/87 H 06/26/20 17:01 Pulse Oximetry 100 06/26/20 17:01 Temperature 96.8 F L 06/26/20 17:01 Pulse Rate 93 06/26/20 17:01 Respiratory Rate 20 06/26/20 17:01 Blood Pressure 144/87 H 06/26/20 17:01 Pulse Oximetry 100 06/26/20 17:01 Reviewed. Pt has been instructed to follow up with her PCP regarding her elevated blood pressure today. MDM - URI/Sore Throat MDM Narrative Medical decision making leydi
== END 2020-06-26 17:14 | disposition home or self-care (01) ==
PROVIDERS: Emergency Provider Nurse Practitioner; PCP Family Medicine
DX: J06.9 Acute upper respiratory infection, unspecified (principal); Z79.82 Long term (current) use of aspirin
CPT/HCPCS: 87081; 87880; 99213; G0463

== ENCOUNTER 2020-07-09 11:53 | Outpatient (CLI) | payer OTHER, SELFPAY ==
[2020-07-09 12:46] VITALS: BP 134/82; PULSE 80
[2020-07-09 13:01] VITALS: BP 131/87; PULSE 82
[2020-07-09 13:04] VITALS: BP 131/85; PULSE 91
[2020-07-09 13:14] LABS: Basophils Percent Auto 0.1 % (0.2-1.2); Eosinophils Absolute Auto 0.1 K/mm3 (0-0.3); Eosinophils Percent Auto 0.9 % (0-4.4); Hematocrit 32.8 % (37.0-47.0); Hemoglobin 10.8 g/dL (12.0-15.0); Immature Granulocyte Absolute 0.03 K/mm3 (0.00-0.031); Immature Granulocyte Percent A 0.4 % (0-0.5); Lymphocytes Absolute Auto 1.41 K/mm3 (0.9-3.2); Lymphocytes Percent Auto 18.3 % (18.3-44.2); Mean Corpuscular HGB Conc 32.9 g/dl (32-36); Mean Corpuscular Hemoglobin 30.9 pg (26-34); Mean Corpuscular Volume 93.7 fl (80-100); Mean Platelet Volume 9.7 fl (7.4-10.4); Monocytes Absolute Auto 0.5 K/mm3 (0.1-0.6); Monocytes Percent Auto 6.8 % (2.6-8.5); Neutrophils Absolute Auto 5.7 K/mm3 (1.3-6.7); Neutrophils Percent Auto 73.5 % (45.5-73.1); Platelet Count Result 243 k/mm3 (150-375); Red Cell Distribution Width 13.2 % (11.5-14.5); White Blood Count 7.7 K/mm3 (4.5-10.0)
[2020-07-09 13:16] VITALS: BP 136/90; PULSE 84
[2020-07-09 13:20] LABS: Alanine Aminotransferase 14 U/L (4-35); Alkaline Phosphatase 159 U/L (38-126); Anion Gap 4 mmol/L (8-16); Aspartate Amino Transferase 18 U/L (14-36); Bilirubin,Total 0.3 mg/dL (0.2-1.3); Blood Urea Nitrogen 11 mg/dL (7-17); Calcium 8.5 mg/dL (8.4-10.2); Carbon Dioxide 23 mmol/L (22-30); Chloride 107 mmol/L (98-107); Estimated Glomerular Filt Rate > 60; Glucose 93 mg/dL (65-105); Potassium 4.1 mmol/L (3.4-5.0); Sodium 134 mmol/L (137-145); Uric Acid 5.2 mg/dL (2.5-7.5)
[2020-07-09 13:31] VITALS: BP 137/86; PULSE 82
--- NOTE | 2020-07-09 13:37 | PC.NURSE ---
Dr Zarate notified of lab results, NST, No symptoms and BP's.
== END 2020-07-09 13:54 | disposition home or self-care (01) ==
LOC: ANHOBOP 12:42 → ANHOBPP 12:43
PROVIDERS: PCP Family Medicine; Visit Provider Obstetrics & Gynecology
DX: O13.9 Gestational [pregnancy-induced] hypertension without significant proteinuria, unspecified trimester (principal); Z3A.00 Weeks of gestation of pregnancy not specified
CPT/HCPCS: 36415; 59025; 80053; 84550; 85025; 99199

== ENCOUNTER 2020-07-10 14:42 | Outpatient (NON) | payer OTHER, SELFPAY ==
[2020-07-10 15:21] VITALS: BMI 37.0
[2020-07-10 15:54] LABS: Collection Time Urine 24 HOURS
[2020-07-10 15:57] LABS: Patient Weight 209 Lbs; Total Volume 24 Hour Urine 1100 ml
[2020-07-10 16:02] LABS: Creatinine Clearance Urine 64.5 ml/min (75-125); Creatinine Urine 67.1 mg/dL; Total Protein Urine 24 Hr 198 MG/DAY (28-141); Total Protein Urine Random 18 mg/dL
== END 2020-07-10 14:43 ==
LOC: ANHOBOP 14:44
PROVIDERS: PCP Family Medicine; Visit Provider Obstetrics & Gynecology
DX: O13.9 Gestational [pregnancy-induced] hypertension without significant proteinuria, unspecified trimester (principal); Z3A.00 Weeks of gestation of pregnancy not specified
CPT/HCPCS: 81050; 82575; 84156

== ENCOUNTER 2020-07-10 15:24 | Inpatient (IN) | payer OTHER, SELFPAY ==
[2020-07-10] VITALS (17 sets, daily range): BP systolic 127–151; BP diastolic 76–99; PULSE 76–97; RESP 16; TEMP 36.6–37.1; BMI 37.0
[2020-07-10 16:30] LABS: Basophils Percent Auto 0.3 % (0.2-1.2); Eosinophils Absolute Auto 0.1 K/mm3 (0-0.3); Eosinophils Percent Auto 0.9 % (0-4.4); Hematocrit 33.7 % (37.0-47.0); Immature Granulocyte Absolute 0.03 K/mm3 (0.00-0.031); Immature Granulocyte Percent A 0.4 % (0-0.5); Lymphocytes Absolute Auto 1.43 K/mm3 (0.9-3.2); Lymphocytes Percent Auto 18.8 % (18.3-44.2); Mean Corpuscular HGB Conc 32.6 g/dl (32-36); Mean Corpuscular Hemoglobin 30.4 pg (26-34); Mean Corpuscular Volume 93.1 fl (80-100); Monocytes Absolute Auto 0.4 K/mm3 (0.1-0.6); Monocytes Percent Auto 5.8 % (2.6-8.5); Neutrophils Absolute Auto 5.6 K/mm3 (1.3-6.7); Neutrophils Percent Auto 73.8 % (45.5-73.1); Platelet Count Result 236 k/mm3 (150-375); Red Blood Count 3.62 M/mm3 (4.2-5.4); Red Cell Distribution Width 12.9 % (11.5-14.5); White Blood Count 7.6 K/mm3 (4.5-10.0)
[2020-07-10] MEDS: LACTATED RINGERS 1,000 ML 125 ML IV CONT (16:36)
[2020-07-10] MEDS: OXYTOCIN 30 UNITS/NS 500 ML 30 UNITS/500 ML BAG IV CONT (16:37)
--- NOTE | 2020-07-10 17:26 | LDADM ---
This patient, Erum Wallis, was admitted to Labor/Delivery/Recovery 107 on 07/10/20 at 15:24. Plans for labor, pain management and were discussed with patient. Patient/family oriented to hospital policies and general routines including ID bracelet, bed and alarms, visiting hours, pain management, procedures, bathroom and other care routines, personal items, smoking policy, room service/diet and guest tray routines, infant security routines, and visiting hours. Patient/Family are encouraged to report perceived risks to care and to ask questions if they do not understand what they are told or what they should do. See OBIX for further documentation.
[2020-07-10 18:16] LABS: HIV 1/2 Ab P24 Ag Result Negative (Negative)
--- NOTE | 2020-07-10 19:08 | WPDOBADMIT ---
Obstetrics - Admit Note Admission Note: Complete and pushing record reviewed. No pertinent additions to the history and/or any subsequent changes in the physical findings that are not consistent with the expected course of the were found. Additions to the history and/or subsequent changes in the physical findings follow. None.
--- NOTE | 2020-07-10 19:09 | PM.OBPRVD ---
OB - Delivery Note Procedure Delivery date: 07/10/20 Procedure: events: Labor Augmentation Intrapartal events: None Induction method: none Delivery augmentation: pitocin Delivery monitor: external FHT and external uterine Route of delivery: Laceration Description: None Specimen: No Quantitative Blood Loss (ml): 120 Anesthesia type: None Disposition: floor Baby Weeks of gestation at delivery: 38
[2020-07-10] MEDS: IBUPROFEN 600 MG TABLET PO (20:26)
[2020-07-10] MEDS: WITCH HAZEL 40 PADS 1 PAD TOPICAL (20:26)
[2020-07-10] MEDS: BENZOCAINE 20% AER SPR (*SP) 56 GM CAN 1 SPRAY TOPICAL (20:26)
[2020-07-10] MEDS: ACETAMINOPHEN 325 MG TABLET 650 MG PO (22:15)
[2020-07-11] VITALS (15 sets, daily range): BP systolic 118–151; BP diastolic 72–93; PULSE 61–79; RESP 14–18; TEMP 36.2–36.9; O2SAT 98–100
[2020-07-11] MEDS: IBUPROFEN 600 MG TABLET PO ×2 (02:45→07:53)
[2020-07-11 05:28] LABS: Hematocrit 29.1 % (37.0-47.0); Hemoglobin 9.6 g/dL (12.0-15.0)
--- NOTE | 2020-07-11 06:16 | WPDANESEPP ---
Anes - Eval Pre Procedure Procedure: PPTL Date/Time: 07/11/20 06:16 Surgeon: beto Pre Op Diagnosis: Spontaneous Rupture of Membranes Patient Data Age: 30 Gender: F Height: 1.6 m Weight: 95 kg Last Vital Signs Temp 37.1 C 07/10/20 21:12 Pulse 81 07/10/20 21:12 Resp 16 07/10/20 21:12 BP 127/85 07/10/20 21:12 Allergies Allergy/AdvReac Type Severity Reaction Status Date / Time Penicillins Allergy Unknown Hives Verified 06/26/20 16:51 Home Medications Medication Instructions Recorded Confirmed Type PNV cmb#95-ferrous fumarate-FA 1 tablet PO DAILY 08/18/19 06/26/20 History [] ergocalciferol (vitamin D2) 50,000 unit PO WEEKLY 03/19/20 06/26/20 History aspirin 81 mg PO DAILY 06/25/20 06/25/20 History Laboratory Tests 07/10/20 07/10/20 07/10/20 16:22 16:22 17:17 WBC 7.6 K/mm3 K/mm3 (4.5-10.0) RBC 3.62 M/mm3 L M/mm3 (4.2-5.4) Hgb 11.0 g/dL L g/dL (12.0-15.0) Hct 33.7 % L % (37.0-47.0) MCV 93.1 fl fl (80-100) MCH 30.4 pg pg (26-34) MCHC 32.6 g/dl g/dl (32-36) RDW 12.9 % % (11.5-14.5) Plt Count 236 k/mm3 k/mm3 (150-375) MPV 10.0 fl fl (7.4-10.4) Immature Gran % (Auto) 0.4 % % (0-0.5) Neut % (Auto) 73.8 % H % (45.5-73.1) Lymph % (Auto) 18.8 % % (18.3-44.2) [place] % (Auto) 5.8 % % (2.6-8.5) Eos % (Auto) 0.9 % % (0-4.4) Baso % (Auto) 0.3 % % (0.2-1.2) Lymph # (Auto) 1.43 K/mm3 K/mm3 (0.9-3.2) [place] # (Auto) 0.4 K/mm3 K/mm3 (0.1-0.6) Eos # (Auto) 0.1 K/mm3 K/mm3 (0-0.3) Baso # (Auto) 0.0 K/mm3 K/mm3 (0.0-0.1) Abs Immat Gran (auto) 0.03 K/mm3 K/mm3 (0.00-0.031) Absolute Neuts (auto) 5.6 K/mm3 K/mm3 (1.3-6.7) Absolute Nucleated RBC 0.0 K/mm3 K/mm3 (0.0-0.012) Nucleated RBC % 0.0 % % (0.0-0.2) RPR Pending HIV 1&2 Ab/P24 Ag 4thGn Blood Type O Positive Antibody Screen Negative 07/10/20 07/11/20 17:17 04:49 WBC RBC Hgb 9.6 g/dL L g/dL (12.0-15.0) Hct 29.1 % L % (37.0-47.0) MCV MCH MCHC RDW Plt Count MPV Immature Gran % (Auto) Neut % (Auto) Lymph % (Auto) [place] % (Auto) Eos % (Auto) Baso % (Auto) Lymph # (Auto) [place] # (Auto) Eos # (Auto) Baso # (Auto) Abs Immat Gran (auto) Absolute Neuts (auto) Absolute Nucleated RBC Nucleated RBC % RPR HIV 1&2 Ab/P24 Ag 4thGn Negative (Negative) Blood Type Antibody Screen Patient hx anesthesia problems: none Family hx anesthesia problems: none [facility] Past Medical History Medical History (Updated 07/11/20 @ 06:18 by Vianey Chamorro CRNA) History of pre-eclampsia Surgical History Surgical History (Updated 07/11/20 @ 06:18 by Vianey Chamorro CRNA) H/O lithotripsy Hx of cholecystectomy Family History Family History (Updated 08/18/19 @ 13:26 by Cesar Grant RN) Other No pertinent family history Social History Social History Smoking status: Never smoker Second hand tobacco smoke exposure: No Alcohol intake: never Substance use: never Gender identity (if verbalized by the patient): Female Spiritual care concerns: No Exam Day of Procedure 07/11/20 06:16
[2020-07-11 09:32] LABS: Rapid Plasma Reagin Non-Reactive (NonReactive)
--- NOTE | 2020-07-11 09:40 | WPDANESEFPP ---
Anes - Eval Final PreProcedure Day of Procedure 07/11/20 09:40 Patient weight: overweight Heart: regular rate and rhythm Lungs: clear to auscultation and normal air movement Airway: Mallampati scale class II Neurological: alert and oriented Last oral intake: >/= 8 hours ASA classification: III Emergent: no Anesthetic plan: proceed Anesthesia type and monitoring: general GIVS and regional spinal Informed Consent: The patient's anesthetic plan and its attendant risks and benefits were discussed with the patient/family/POA. Questions were solicited and answers provided to the satisfaction of the patient/family/POA.
[2020-07-11] MEDS: ACETAMINOPHEN 325 MG TABLET 650 MG PO (10:13)
--- NOTE | 2020-07-11 12:50 | PC.NURSE ---
To OR per stretcher.
[2020-07-11] MEDS: LACTATED RINGERS 1,000 ML 30 ML IV CONT ×2 (13:24→15:11)
--- NOTE | 2020-07-11 13:59 | PM.IMHP ---
H&P: HPI History of Present Illness Date/Time: 07/11/20 13:59 Chief Complaint: desires tubal Narrative: Erum Wallis is a 30 year old female s/p desires sterilization. Review of Systems Review of Systems: All systems reviewed & are unremarkable except as noted in HPI and below PMFSH Past Medical History Medical History History of pre-eclampsia Surgical History Surgical History H/O lithotripsy Hx of cholecystectomy Family History Family History Other No pertinent family history Social History Social History Smoking status: Never smoker Second hand tobacco smoke exposure: No Alcohol intake: never Substance use: never Gender identity (if verbalized by the patient): Female Spiritual care concerns: No Meds Home Medications and Allergies Home Medications Medication Instructions Recorded Confirmed Type PNV cmb#95-ferrous fumarate-FA 1 tablet PO DAILY 08/18/19 06/26/20 History [] ergocalciferol (vitamin D2) 50,000 unit PO WEEKLY 03/19/20 06/26/20 History aspirin 81 mg PO DAILY 06/25/20 06/25/20 History Allergies Allergy/AdvReac Type Severity Reaction Status Date / Time Penicillins Allergy Unknown Hives Verified 06/26/20 16:51 Vital Signs Vital Signs - 24 hr 07/10/20 16:00 07/10/20 16:21 07/10/20 16:35 Temperature 36.9 C Pulse Rate 97 89 Respiratory Rate Blood Pressure 134/96 H 142/88 H Pulse Oximetry 07/10/20 16:38 07/10/20 16:45 07/10/20 17:00 Temperature Pulse Rate 93 84 85 Respiratory Rate Blood Pressure 138/98 H 143/83 H 149/97 H Pulse Oximetry 07/10/20 17:30 07/10/20 18:00 07/10/20 18:30 Temperature Pulse Rate 85 89 91 Respiratory Rate Blood Pressure 134/93 H 140/90 136/99 H Pulse Oximetry 07/10/20 18:34 07/10/20 19:10 07/10/20 19:30 Temperature 36.6 C Pulse Rate 78 78 Respiratory Rate Blood Pressure 151/93 H 139/76 Pulse Oximetry 07/10/20 20:00 07/10/20 20:38 07/10/20 20:45 Temperature Pulse Rate 82 83 86 Respiratory Rate Blood Pressure 148/86 H 136/84 135/82 Pulse Oximetry 07/10/20 21:00 07/10/20 21:12 07/11/20 07:45 Temperature 37.1 C 36.9 C Pulse Rate 76 81 75 Respiratory Rate 16 16 Blood Pressure 142/78 H 127/85 136/89 Pulse Oximetry 99 Exam Const: General: cooperative Resp: Effort & Inspection: normal respiratory effort Cardio: Rate: regular rate GI: Other: soft fundus at umbilicus H&P: Results Labs Labs: Short CBC 07/10/20 07/11/20 Range/Units 16:22 04:49 WBC 7.6 (4.5-10.0) K/mm3 Hgb 11.0 L 9.6 L (12.0-15.0) g/dL Hct 33.7 L 29.1 L (37.0-47.0) % Plt Count 236 (150-375) k/mm3 Assessment and Plan Assessment and plan (1) Request for sterilization: Code(s): Z30.2 - Encounter for sterilization Status: Acute Assessment and Plan: desires permanent sterilization. scheduled for a post tubal ligation. Risk and benefits reviewed.
--- NOTE | 2020-07-11 14:03 | WPDHPUPDATE1 ---
History and Physical Update Update Date/Time: 07/11/20 14:03 History and Physical has been reviewed, including an updated exam of the patient. There are NO changes in the patient's condition. Risks, benefits, and alternatives have been discussed and questions answered. Patient agrees to proceed with procedure.
--- NOTE | 2020-07-11 14:41 | PCCCNOTE ---
Received call from nursing that pt. was planning adoption. Plan is for her sister, Melanie Smith, to adopt the baby. I was unable to talk to pt., as she is gone for a procedure for the rest of the afternoon. I did speak with Melanie. She reports that they have an sports attorney to facilitate adoption, Andrea Underwood. They do not have any documentation, such as temporary guardianship papers. It was explained that in this situation, baby will discharge with Erum and sports attorney will need to handle adoption outside of the hospital. Melanie expressed understanding. She has my contact information incase her has additional questions or information. Pt.'s nurse, Manasa, is aware as well.
[2020-07-11] MEDS: KETOROLAC 30 MG/ML VIAL (*BKC) IV PUSH ×2 (15:00→20:49)
--- NOTE | 2020-07-11 17:31 | PC.NURSE ---
Return from PACU per stretcher.
[2020-07-11] MEDS: POLYSACCHARIDE IRON COMPLEX 150 MG CAPSULE PO (18:01)
[2020-07-11] MEDS: DOCUSATE SODIUM 100 MG CAPSULE PO (18:01)
[2020-07-11] MEDS: HYDROcodone/acetaminophen (*CRX) 5-325 MG TABLET 1 TAB PO ×2 (18:02→22:03)
[2020-07-11] MEDS: SIMETHICONE 80 MG TAB.CHEW PO (22:04)
[2020-07-12] MEDS: HYDROcodone/acetaminophen (*CRX) 5-325 MG TABLET 1 TAB PO ×4 (02:03→15:48)
[2020-07-12] MEDS: KETOROLAC 30 MG/ML VIAL (*BKC) IV PUSH (02:59)
[2020-07-12] MEDS: SIMETHICONE 80 MG TAB.CHEW PO ×2 (06:39→11:51)
[2020-07-12 06:40] VITALS: O2SAT 99
[2020-07-12 07:30] VITALS: BP 131/80; PULSE 66; RESP 18; TEMP 36.5; O2SAT 99
[2020-07-12] MEDS: DOCUSATE SODIUM 100 MG CAPSULE PO ×2 (07:36→17:35)
[2020-07-12] MEDS: POLYSACCHARIDE IRON COMPLEX 150 MG CAPSULE PO ×2 (07:36→17:35)
[2020-07-12] MEDS: IBUPROFEN 600 MG TABLET PO ×2 (08:46→15:48)
--- NOTE | 2020-07-12 10:26 | PM.OBPNVD ---
OB - PN: Subj Subjective Date/time seen: 07/12/20 10:26 Patient comments: no complaints and pain well controlled baby status: doing well OB - PN: Obj Data Labs CBC & Chem 7: 07/11/20 04:49 OB - PN A/P Assessment and Plan (1) Request for sterilization: Code(s): Z30.2 - Encounter for sterilization Status: Acute Assessment and Plan: s/p pp BTL Plan day: 2 Plan: discharge home Comments: follow up 1 week inc check Time Spent With Patient Time: Total time spent is greater than 50% in coordination of care (as documented) at patient's floor/unit and/or counseling patient: Exam Narrative: Exam Narrative: inc c/d/i : Bimanual exam- vagina & uterus: other (Uterus firm, nt @U)
[2020-07-14 07:52] VITALS: BP 133/89; PULSE 77; RESP 20; TEMP 36.6; O2SAT 100
--- NOTE | 2020-08-04 10:47 | PM.OBDSVD ---
DS: Admitting Diagnosis Admitting Diagnosis Admitting Diagnosis: induction of Labor and desires permanent sterilization DS: Discharge Diagnosis Discharge Diagnosis (1) Request for sterilization: Code(s): Z30.2 - Encounter for sterilization Status: Acute (2) (normal spontaneous vaginal delivery): Code(s): O80 - Encounter for full-term uncomplicated delivery Status: Acute OB - DS: Summary OB Procedures : NST and Ultrasound OB Procedures Intrapartum: Spontaneous Vag Delivery and Tubal ligation OB Procedures: : None Peripartum Data Procedures: Procedures Operation Date: 07/11/20 14:00 Actual Procedures Side Surgeon p Post- Tubal Ligation Bilateral Jah Zarate MD Time Spent with Patient Time attestation: Total time spent providing and/or coordinating discharge services: DS: Data Data Completed and Pending Completed studies during hospitalization: Pending at discharge 07/11/20 14:55 Surgical [PTH] Routine Discharge Plan Discharge Attending physician on discharge: Jah Zarate Consulting providers: Ismael Nickerson Discharging Clinician: Marialuisa Mac Anticipated Discharge Date/Time: 07/12/20 10:28 Patient Disposition: Home, Self-Care Activity: may shower, may drive after 2 weeks and pelvic rest Diet: regular Wound Care Instructions: incision open to air Discharge Instructions: Education: Mom and Baby Guide Given to: Mother Follow-Up: Call your delivering provider's office for an appointment to be seen in: 1 Week Mom and baby [facility] for the follow-up appointment. Appointment Date/Time: July 14, 2020 at 8:00 am What to expect at your follow-up visit: Blood Pressure Check Incision Assessment Call [phone] if you are unable to keep your appointment time. BREAST CARE: * Wear a snug supportive bra. * For engorgement discomfort: Bottle Feeding: * May apply ice packs ABDOMINAL INCISION: * Allow incision to air dry * Do NOT use lotions for powders on your incision * When showering, allow soap and water to run over the incision, but do not wash incision EPISIOTOMY/PERINEAL CARE: * Until bleeding stops, use your kristina bottle after urinating * Change your pad frequently throughout the day * You may take sitz baths several times a day (fill your bathtub with warm water and soak for 20 minutes.) Do NOT bathe in the water * No tub baths until seen by your physician - You may shower ACTIVITY: * Rest as much as possible. * Do not exercise or lift anything heavier than your baby (such as laundry or other children.) * Avoid stairs or driving as much as possible. * Do not put anything into the vagina. No douching, tampons, or sexual activity until seen by physician. NOTIFY PHYSICIAN IF YOU HAVE ANY QUESTIONS OR IF ANY OF THE FOLLOWING SYMPTOMS OCCUR: * If your incision becomes red, swollen, or more painful than what you have experienced in the hospital. * If your vaginal bleeding becomes foul smelling. * If your vaginal bleeding becomes more heavy than a period or if your bleeding changes from pink to bright red. However, you may pass an occasional walnut-sized clot once or twice for the first week . * If you experience a sharp, shooting pain in you calves. * If you discover a hard, reddened area on your breast or if you experience flu-like symptoms. DIET: * Eat regular, well-balanced meals. * Drink plenty of fluids daily. Stand Alone Forms: General Discharge Information Follow-up/Referrals: Jah Zarate MD [Physician] - 1 Week Discharge Medications: New hydrocodone-acetaminophen 5-325 mg Tablet 1 tablet PO Q4H PRN (Reason: Pain Rated 4-6) Qty: 20 RF: 0 Continued ergocalciferol (vitamin D2) 1,250 mcg (50,000 unit) capsule 50,000 unit PO WEEKLY RF: 0 PNV cmb#95-ferrous fumarate-FA [] 28 mg iron- 800 mcg Tablet 1 tabl
--- NOTE | 2020-08-04 10:49 | PM.PROC ---
Procedure Note - Detailed Date of procedure: 08/04/20 Pre-op diagnosis: Spontaneous Rupture of Membranes desires permanent sterilization Post-op diagnosis: same Procedure performed: post tubal ligation Description of procedure: Patient was taken to operating room with IV running. she was prepped in normal fashion after anesthesia found to be adequate . A 3cm horizontal incision was made under the umbilicus and carried down to the fascia. Fascia and peritoneum entered the left fallopian tube was grasped with a brian and followed down to fimbrated end. the tube was clamped transected and suture ligated with o vicryl. the same procedure was performed on the right. both specimens sent to pathology. The fascia was closed with O vicryl suture and the skin was closed with 4-0 vicryl subcutaneously. Patient was taken to recovery in stable condition. Anesthesia: spinal Surgeon: Jah Zarate MD Estimated blood loss (mL): 10
== END 2020-07-12 19:22 | disposition home or self-care (01) | DRG 541 ==
LOC: ANHLDR 16:28 → ANHOB2 07-11 06:43 → ANHLDR 07-15 11:57 → ANHOB2 07-15 11:57
PROVIDERS: Admitting Provider Obstetrics & Gynecology; PCP Family Medicine; Visit Provider Obstetrics & Gynecology Gynecology
PROC: (CPT 58605; principal; 2020-07-11 14:00)
DX: O80 Encounter for full-term uncomplicated delivery (principal); Z37.0 Single live birth; Z3A.38 38 weeks gestation of pregnancy; Z30.2 Encounter for sterilization; N83.8 Other noninflammatory disorders of ovary, fallopian tube and broad ligament
CPT/HCPCS: 36415; 81050; 82575; 84112; 84156; 85014; 85018; 85025; 86592; 86703; 86850; 86900; 86901; 88302; A9270; G0432; J1885; J2250; J2405; J2590; J2704; J2795; J3010; J7120

== ENCOUNTER 2023-01-07 09:50 | Emergency (ER) | payer OTHER, SELFPAY ==
[2023-01-07 09:57] VITALS: BP 110/92; PULSE 88; RESP 16; TEMP 36.9; O2SAT 99
--- NOTE | 2023-01-07 10:58 | ED.HA ---
HPI - Headache General Chief Complaint: Headache Stated Complaint: dizziness Time Seen by Provider: 01/07/23 09:57 Source: patient Mode of arrival: ambulatory Limitations: no limitations History of Present Illness HPI Narrative: Patient is a 32-year-old female who presents ED with multiple complaints. Patient reports she ate out at a restaurant on Tuesday and developed several symptoms on Tuesday including acid reflux, nausea, vomiting, diarrhea, headache. These symptoms have mostly resolved. She denies any nausea or abdominal pain currently, but does report having a persistent headache since Tuesday. States pain has been constant. Worse with movement. She tried taking ibuprofen around 5 AM this morning without much relief. Denies any vision changes, dizziness, lightheadedness, photophobia, phonophobia, numbness, weakness. Denies history of migraines. Patient also complains of spasming in her right lower leg. Related Data Home Medications Medication Instructions Recorded Confirmed vit no.95-ferrous 1 tablet PO DAILY 08/18/19 06/26/20 fumarate 28 mg-folic acid 800 mcg tablet () ergocalciferol (vitamin D2) 1,250 50,000 unit PO WEEKLY 03/19/20 06/26/20 mcg (50,000 unit) capsule Allergies Allergy/AdvReac Type Severity Reaction Status Date / Time Penicillins Allergy Unknown Hives Verified 01/07/23 10:00 Review of Systems Review of Systems: CONSTITUTIONAL: Denies fever, chills, or sweats. EYES: Denies visual changes. CARDIOVASCULAR: Denies chest pain. RESPIRATORY: Denies dyspnea. GASTROINTESTINAL: See HPI. GENITOURINARY: Denies dysuria or hematuria. MUSCULOSKELETAL: See HPI. NEUROLOGIC: See HPI. All systems reviewed & are unremarkable except as noted in HPI and below PMFSH Past Medical History Medical History History of pre-eclampsia Request for sterilization Surgical History Surgical History H/O lithotripsy Hx of cholecystectomy Family History Family History Other No pertinent family history Social History Social History Smoking status: Never smoker Second hand tobacco smoke exposure: No Alcohol intake: never Substance use: never Gender identity (if verbalized by the patient): Female Spiritual care concerns: No Exam Narrative: GENERAL: Well appearing, obese with BMI of 35.6, non-toxic, in no acute distress. HEAD: Normocephalic, atraumatic. EYES: PERRL/EOMI, conjunctivae clear bilaterally. No nystagmus. EARS: TMS clear, with good light reflex. No erythema or bulging. THROAT: Pharynx clear, no exudate. MMs moist. NECK: Supple. No adenopathy, no masses. No meningeal signs. RESPIRATORY: Airway patent, respirations nonlabored. Clear to auscultation bilaterally, no rales, rhonchi, wheezing. CARDIOVASCULAR: Regular rate and rhythm without murmurs, rubs, or gallops. Radial pulses 2+ and equal bilaterally. ABDOMINAL: Soft, no tenderness throughout abdomen, nondistended, no hepatosplenomegaly. Normoactive BS. MUSCULOSKELETAL: Moves all extremities. Strength/ROM intact without gross deformities. No edema/erythema/warmth/wounds to lower extremities. Minimal tenderness to lateral R calf. SKIN: Warm, dry, normal color. No rashes. NEURO: A&O X3. Speech clear. Follows commands. CN II-XII intact. Sensation grossly intact. Steady gait. No ataxic movements. No focal deficits. PSYCHIATRIC: Appropriate mood and affect. Normal interaction. Course Vital Signs Vital signs: Vital Signs Temperature 98.5 F 01/07/23 09:57 Pulse Rate 88 01/07/23 09:57 Respiratory Rate 16 01/07/23 09:57 Blood Pressure 110/92 H 01/07/23 09:57 Pulse Oximetry 99 01/07/23 09:57 Oxygen Delivery Room Air 01/07/23 09:57 Temperature 98.5 F 01/07/23
[2023-01-07] MEDS: SODIUM CHLORIDE 0.9% IV 1,000 ML 999 ML IV CONT (11:08)
[2023-01-07] MEDS: diphenhydrAMINE HCl INJ 50 MG/ML VIAL 25 MG IV PUSH (11:09)
[2023-01-07] MEDS: FAMOTIDINE 20 MG/2 ML VIAL IV PUSH (11:09)
[2023-01-07] MEDS: METOCLOPRAMIDE HCL INJ 10 MG/2 ML VIAL IV PUSH (11:11)
[2023-01-07] MEDS: KETOROLAC 30 MG/ML VIAL (*BKC) IV PUSH (11:11)
[2023-01-07] MEDS: ACETAMINOPHEN 500 MG TABLET 1000 MG PO (11:12)
[2023-01-07 11:25] LABS: Basophils Percent Auto 0.5 % (0.2-1.2); Eosinophils Percent Auto 0.5 % (0-4.4); Hematocrit 35.7 % (37.0-47.0); Immature Granulocyte Absolute 0.02 K/mm3 (0.00-0.031); Immature Granulocyte Percent A 0.3 % (0-0.5); Lymphocytes Absolute Auto 1.13 K/mm3 (0.9-3.2); Lymphocytes Percent Auto 17.2 % (18.3-44.2); Mean Corpuscular HGB Conc 33.6 g/dl (32-36); Mean Corpuscular Volume 92.2 fl (80-100); Mean Platelet Volume 10.3 fl (7.4-10.4); Monocytes Absolute Auto 0.7 K/mm3 (0.1-0.6); Monocytes Percent Auto 10.5 % (2.6-8.5); Neutrophils Absolute Auto 4.7 K/mm3 (1.3-6.7); Platelet Count Result 189 k/mm3 (150-375); Red Blood Count 3.87 M/mm3 (4.2-5.4); Red Cell Distribution Width 13.2 % (11.5-14.5); White Blood Count 6.6 K/mm3 (4.5-10.0)
[2023-01-07 11:37] LABS: Alanine Aminotransferase 69 U/L (6-35); Albumin Level 3.8 g/dL (3.5-5.1); Alkaline Phosphatase 125 U/L (38-126); Anion Gap 7 mmol/L (8-16); Aspartate Amino Transferase 42 U/L (14-36); Bilirubin,Total 0.3 mg/dL (0.2-1.3); Blood Urea Nitrogen 12 mg/dL (7-17); Calcium 8.8 mg/dL (8.4-10.2); Carbon Dioxide 29 mmol/L (22-30); Chloride 99 mmol/L (98-107); Estimated CRCL calculation 138 ml/min; Estimated Glomerular Filt Rate > 60; Glucose 105 mg/dL (65-110); Magnesium 1.9 mg/dL (1.6-2.3); Potassium 3.6 mmol/L (3.4-5.0); Sodium 135 mmol/L (137-145)
[2023-01-07 11:56] VITALS: BP 113/76; PULSE 82; RESP 19; O2SAT 100
[2023-01-07 12:41] LABS: Influenza A QL RT-PCR Negative (Negative); Influenza B QL RT-PCR Negative (Negative); SARS-CoV-2 RNA PCR Negative (Negative)
[2023-01-07 13:14] VITALS: BP 113/83
== END 2023-01-07 14:10 | disposition home or self-care (01) ==
PROVIDERS: Emergency Provider Physician Assistant; PCP Family Medicine
DX: R11.2 Nausea with vomiting, unspecified (principal); R51.9 Headache, unspecified; Z20.822 Contact with and (suspected) exposure to COVID-19; Z90.49 Acquired absence of other specified parts of digestive tract
CPT/HCPCS: 36415; 80053; 83735; 85025; 87636; 96361; 96374; 96375; 99284; A9270; J1100; J1200; J1885; J2765; J7030

== ENCOUNTER 2023-06-26 19:36 | Inpatient (IN) | payer MEDICAID, SELFPAY ==
--- NOTE | ~2023-06-26 | XR_ITS ---
EXAMINATION: XR stent kub - surgery DATE: 06/27/2023 11:03 INDICATION: Left nephrolithiasis and ureteral stent placement TECHNIQUE: 4 fluoroscopic images of the abdomen and pelvis were obtained during procedure performed geetha Denise. Radiologist was not present for the imaging or procedure. The amount of fluoroscopy ti me used during this procedure was 0.7 minutes. COMPARISON: CT dated 06/26/2023 and KUB dated 06/27/2023 FINDINGS: Irrigation Equipment Mechanic images demonstrate a large stone at the left renal pelvis and additional relatively large stone in the distal left ureter. Subsequent placement of a left intrarenal stent with loops formed at the infundibulum of an upper pole calyx of the left kidney and in the bladder. Both the stones appear to remain in place. Retrograde contrast injection into the left renal collecting system demonstrates mil d left hydronephrosis. IMPRESSION: 1. Persistent large stones at the left renal pelvis and distal left ureter with mild left hydronephro sis. 2. Placement of a left internal ureteral stent which is in expected position. See procedure note for further detail. Reviewed, dictated and finalized at location A. ING BUCKING SUPERVISOR IMPRESSION: 1. Persistent large stones at the left renal pelvis and distal left ureter with mild left hydronephrosis. 2. Placement of a left internal ureteral stent which is in expected position. S ee procedure note for further detail.
--- NOTE | ~2023-06-26 | CT_ITS ---
Non-contrast CT scan of the Abdomen and Pelvis Clinical indication: Left flank pain Technique: 2.5 mm axial scans were obtained through the abdomen and pelvis without intravenous or or al contrast. Dose reduction technique was used on this scan by utilizing automated exposure control a nd iterative reconstruction technique. The dose-length product (DLP) was 245.35 mGy-cm. Findings: Images through the lung bases reveal no abnormalities. There is a 1.2 cm ovoid stone at the distal left ureter (coronal image 69, axial image 119), with mod erate left hydroureteronephrosis to this level. There is an additional 2.4 x 1.0 cm ovoid stone at th e left renal pelvis. There is medullary nephrocalcinosis bilaterally. No right ureteral stone or righ t hydronephrosis. The liver, spleen, pancreas, and adrenals appear normal. Cholecystectomy clips are present. There is no aortic aneurysm. There is no evidence of bowel obstruction. Normal appendix. Images through the pelvis were performed. There is no evidence of ascites or lymphadenopathy. Urinary bladder unremarkable. No adnexal mass evident. Impression: 1.2 cm distal left ureteral stone with moderate left hydroureteronephrosis to this level. Additional 2.4 x 1.0 cm nonobstructing stone at the left renal pelvis. Medullary nephrocalcinosis bilaterally. Reviewed, dictated and finalized at [facility]. TRONIC ASSEMBLER GROUP LEADER Impression: 1.2 cm distal left ureteral stone with moderate left hydroureteronephrosis to t his level. Additional 2.4 x 1.0 cm nonobstructing stone at the left renal pelvis. Medullary nephrocalcinosis bilaterally.
--- NOTE | ~2023-06-26 | XR_ITS ---
EXAMINATION: XR abdomen/kub 1V DATE: 06/27/2023 08:16 INDICATION: Left-sided ureteral stone. TECHNIQUE: A supine view of the abdomen on 2 radiographs was obtained. COMPARISON: CT dated 06/26/2023 FINDINGS: There are multiple tiny stones scattered throughout both kidneys. 3.5 cm comma shape stone which is l ocated at and conforms to the shape of the left renal pelvis and ureteropelvic junction. There are co uple subtle ovoid opacities in the left hemipelvis, one of which likely represents the distal left ur eteral stone appreciated on prior CT . There is a more caudal tiny phlebolith in the left hemipelvis. Normal bowel gas pattern. IMPRESSION: 1. Bilateral nephrolithiasis. Unable to definitively distinguish between 2 ovoid opacities in the lef t pelvis one of which likely represents the distal left ureteral stone seen on CT. Reviewed, dictated and finalized at location A. STANT PROFESSOR OF SURGERY IMPRESSION: 1. Bilateral nephrolithiasis. Unable to definitively distinguish between 2 ovoi d opacities in the left pelvis one of which likely represents the distal left u reteral stone seen on CT.
[2023-06-26 19:39] VITALS: BP 141/70; PULSE 92; RESP 19; TEMP 36.8; O2SAT 100
--- NOTE | 2023-06-26 19:56 | ED.GENADULT ---
HPI - General Adult General Chief complaint: Abdominal Pain Stated complaint: abd pain Time Seen by Provider: 06/26/23 19:45 History of Present Illness HPI narrative: this is a 33-year-old female with history of kidney stones presenting with left-sided flank pain. Pain is gone for 4 days, is in her left flank and radiates to her left lower quadrant of her abdomen. It is sharp initially intermittent but is now constant and 6/10 in intensity. She says this feels like she has kidney stones in the past. She does note she has had cloudy urine with blood in it. Last menstrual period was 2 weeks ago. Bowel movements normal. She has some associated nausea but no vomiting. Related Data Home Medications Medication Instructions Recorded Confirmed vit no.95-ferrous 1 tablet PO DAILY 08/18/19 06/26/20 fumarate 28 mg-folic acid 800 mcg tablet () ergocalciferol (vitamin D2) 1,250 50,000 unit PO WEEKLY 03/19/20 06/26/20 mcg (50,000 unit) capsule Allergies Allergy/AdvReac Type Severity Reaction Status Date / Time Penicillins Allergy Unknown Hives Verified 06/26/23 19:57 [facility] Past Medical History Medical History History of pre-eclampsia Request for sterilization Surgical History Surgical History H/O lithotripsy Hx of cholecystectomy Family History Family History Other No pertinent family history Social History Social History Smoking status: Never smoker Second hand tobacco smoke exposure: No Alcohol intake: never Substance use: never Gender identity (if verbalized by the patient): Female Spiritual care concerns: No Exam Narrative: APPEARANCE: No apparent distress. Head: atraumatic. EYES: EOMI, NOSE: Atraumatic NECK: Trachea midline RESPIRATORY: No increased rate of breathing, ctab CARDIOVASCULAR: RRR, ABDOMINAL: left CVA tenderness. Mild tenderness palpation in the left lower quadrant. No guarding rebound MUSCULOSKELETAl: No obvious deformities NEURO: Alert. Moving 4/4 extremities SKIN:: Warm, dry. Normal color PSYCHIATRIC: Normal affect Course Vital Signs Vital signs: Vital Signs Temperature 98.2 F 06/26/23 19:39 Pulse Rate 92 06/26/23 19:39 Respiratory Rate 19 06/26/23 19:39 Blood Pressure 141/70 H 06/26/23 19:39 Pulse Oximetry 100 06/26/23 19:39 Temperature 98.2 F 06/26/23 19:39 Pulse Rate 92 06/26/23 19:39 Respiratory Rate 06/26/23 19:39 Blood Pressure 141/70 H 06/26/23 19:39 Pulse Oximetry 100 06/26/23 19:39 Medical Decision Making MDM Narrative Medical decision making narrative: -Course: 33-year-old presenting with left-sided flank pain and urinary symptoms. CT showed a 1.2 cm stone in the distal ureter. Urine was not indicative of infection. Patient has been started on ceftriaxone. patient is not septic. Hemodynamically stable her pain is controlled @ this time. Case discussed with Dr. Cota. Patient made NPO, IV antibiotics and possible urologic intervention. -DDX includes but is not limited to: kidney stone, UTI/ pyelo, muscle strain, diverticulitis, colitis, pregancy -Co-morbidities complicating care:hx of kidney stones -Social determinants of health: works at [employer] -Independent interpretation of studies: White count 11.3. UA showed +3 leuk esterase, +positive nitrites, greater than 100 white blood cells and 50-[address]: Abdomen Pelvis 1.2 cm distal left ureteral stone with moderate left hydroureteronephrosis to this level. Additional 2.4 x 1.0 cm nonobstructing stone at the left renal pelvis. Medullary nephrocalcinosis bilaterally. -Discussion of Management/Consultants: Ishmael-Hospitalist -Interventions: Tylenol, Dilaudid, Zofran, ceft
[2023-06-26] MEDS: ACETAMINOPHEN 500 MG TABLET 1000 MG PO (20:12)
[2023-06-26] MEDS: SODIUM CHLORIDE 0.9% IV 1,000 ML 999 ML IV CONT (20:18)
[2023-06-26] MEDS: ONDANSETRON INJ 4 MG/2 ML VIAL IV PUSH (20:19)
[2023-06-26] MEDS: HYDROmorphone HCL INJ (*CRX) 1 MG/ML SYR 0.5 MG IV PUSH (20:19)
[2023-06-26 20:23] VITALS: PULSE 82; RESP 21; O2SAT 100
[2023-06-26 20:29] LABS: Basophils Percent Auto 0.3 % (0.2-1.2); Eosinophils Absolute Auto 0.1 K/mm3 (0-0.3); Eosinophils Percent Auto 0.9 % (0-4.4); Hematocrit 35.4 % (37.0-47.0); Hemoglobin 11.4 g/dL (12.0-15.0); Immature Granulocyte Absolute 0.06 K/mm3 (0.00-0.031); Immature Granulocyte Percent A 0.5 % (0-0.5); Lymphocytes Percent Auto 10.7 % (18.3-44.2); Mean Corpuscular HGB Conc 32.2 g/dl (32-36); Mean Corpuscular Hemoglobin 29.8 pg (26-34); Mean Corpuscular Volume 92.4 fl (80-100); Mean Platelet Volume 10.6 fl (7.4-10.4); Monocytes Absolute Auto 0.7 K/mm3 (0.1-0.6); Monocytes Percent Auto 5.8 % (2.6-8.5); Neutrophils Absolute Auto 9.2 K/mm3 (1.3-6.7); Neutrophils Percent Auto 81.8 % (45.5-73.1); Platelet Count Result 216 k/mm3 (150-375); Red Blood Count 3.83 M/mm3 (4.2-5.4); Red Cell Distribution Width 13.2 % (11.5-14.5); White Blood Count 11.2 K/mm3 (4.5-10.0)
[2023-06-26 20:30] VITALS: PULSE 73; RESP 16; O2SAT 100
[2023-06-26 20:34] LABS: Appearance Urine Cloudy (Clear); Bacteria Urine Rare /hpf; Bilirubin Urine Negative (Negative); Blood Urine 2+ (Negative); Color Urine Yellow (Yellow); Glucose Urine UA Negative (Negative); Ketones Urine Negative (Negative); Leukocyte Esterase Ur 3+ LEU/UL (Negative); Nitrate Urine Positive (Negative); Protein Urine 1+ mg/dL (Negative); RBC Urine 51-100 /hpf (0-2); Specific Grav Ur 1.015 (1.001-1.035); Squamous Epithelial Cell Urine None seen /hpf (Few); WBC Urine >100 /hpf
[2023-06-26 20:35] LABS: Add Urine Microscopic? YES
[2023-06-26 20:45] LABS: Alanine Aminotransferase 31 U/L (6-35); Albumin Level 3.8 g/dL (3.5-5.1); Alkaline Phosphatase 81 U/L (38-126); Anion Gap 7 mmol/L (8-16); Aspartate Amino Transferase 28 U/L (14-36); Bilirubin,Total 0.4 mg/dL (0.2-1.3); Blood Urea Nitrogen 15 mg/dL (7-17); Calcium 9.4 mg/dL (8.4-10.2); Carbon Dioxide 28 mmol/L (22-30); Chloride 103 mmol/L (98-107); Estimated CRCL calculation 110 ml/min; Estimated Glomerular Filt Rate > 60; Glucose 109 mg/dL (65-110); Lipase 111 U/L (23-300); Potassium 3.7 mmol/L (3.4-5.0); Sodium 138 mmol/L (137-145)
[2023-06-26] MEDS: SODIUM CHLORIDE 0.9% IV 2,000 ML 999 ML IV CONT (21:25)
--- NOTE | 2023-06-26 22:22 | PM.IMHP ---
H&P: HPI History of Present Illness Date/Time: 06/26/23 22:22 Chief Complaint: Left flank pain Narrative: this is a 33-year-old female with past medical history significant for kidney stone. Patient presents to the emergency room after 4 days of left flank pain, nausea, denies vomiting denies fevers rigors or chills, pain is out of 10/10 intensity unrelieved by pain medication. Preliminary workup was significant for CT of abdomen and pelvis with a 1.2 cm stone, a urinalysis was significant for numerous WBCs present. Patient has been admit valuation management and treatment. Non-contrast CT scan of the Abdomen and Pelvis Clinical indication: Left flank pain Technique:? 2.5 mm axial scans were obtained through the abdomen and pelvis without intravenous or oral contrast. Dose reduction technique was used on this scan by utilizing automated exposure control and iterative reconstruction technique. The dose-length product (DLP) was 245.35 mGy-cm. Findings:? Images through the lung bases reveal no abnormalities. There is a 1.2 cm ovoid stone at the distal left ureter (coronal image 69, axial image 119), with moderate left hydroureteronephrosis to this level. There is an additional 2.4 x 1.0 cm ovoid stone at the left renal pelvis. There is medullary nephrocalcinosis bilaterally. No right ureteral stone or right hydronephrosis. The liver, spleen, pancreas, and adrenals appear normal. Cholecystectomy clips are present. There is no aortic aneurysm. ? There is no evidence of bowel obstruction. Normal appendix. Images through the pelvis were performed. There is no evidence of ascites or lymphadenopathy. Urinary bladder unremarkable. No adnexal mass evident. Impression: 1.2 cm distal left ureteral stone with moderate left hydroureteronephrosis to this level. Additional 2.4 x 1.0 cm nonobstructing stone at the left renal pelvis. Medullary nephrocalcinosis bilaterally. Review of Systems Review of Systems: Left flank pain Constitutional: Constitutional: Denies chills, Denies fatigue, Denies fever(s), Denies malaise and Denies night sweats Eyes: Eyes: Denies change in vision ENT: Denies dysphagia and Denies odynophagia Cardiovascular: Cardiovascular: Denies chest pain, Denies radiating jaw, neck or arm pain and Denies palpitations Respiratory: Respiratory: Denies cough and Denies dyspnea Gastrointestinal: Gastrointestinal: Denies diarrhea, Reports nausea and Denies vomiting Genitourinary: Genitourinary: Reports dysuria and Reports flank pain Musculoskeletal: Musculoskeletal: Denies arthralgias and Denies limited range of motion Integumentary/Breasts: Skin/Breast: Denies rash Neurologic: Denies focal weakness and Denies Sensory deficit (Neuro) Psychiatric: Psychiatric: Reports no additional psychiatric complaints and Reports as per HPI Endocrine: Endocrine: Denies cold intolerance, Denies fatigue, Denies flushing, Denies heat intolerance, Denies polyphagia, Denies polydipsia and Denies palpitations Hematologic/Lymphatic: Hematologic/Lymphatic: Reports no additional hematologic/lymphatic complaints and Reports as per HPI Allergic/Immunologic: Allergic/Immunologic: Reports no additional allergic/immunologic complaints and Reports as per HPI PMFSH Past Medical History Medical History History of pre-eclampsia Request for sterilization Surgical History Surgical History H/O lithotripsy Hx of cholecystectomy Family History Family History Other No pertinent family history Social History Social History Smoking status: Never smoker Second hand tobacco smoke exposure: No Alcohol intake: never Substance use: never Gender identity (if verbalized by the patient): Female Spi
[2023-06-26 22:24] VITALS: PULSE 79; RESP 22; O2SAT 100
[2023-06-26 23:20] VITALS: BMI 31.5
[2023-06-26 23:25] VITALS: BP 122/74; PULSE 68; RESP 20; TEMP 37.1; O2SAT 100
--- NOTE | 2023-06-26 23:33 | ADMGEN ---
This patient, Erum Wallis, was admitted to [facility] Room 313-01. Patient/family oriented to hospital policies and general routines including ID bracelet, bed and alarms, visiting hours, pain management, procedures, bathroom and other care routines, personal items, smoking policy, room service/diet, and visiting hours. Information on how to activate the Rapid Response Team has been discussed. Patient/Family are encouraged to report perceived risks to care and to ask questions if they do not understand what they are told or what they should do.
[2023-06-26 23:40] LABS: Glucose Point of Care 95 mg/dl (65-105)
[2023-06-26] MEDS: LACTATED RINGERS 1,000 ML 125 ML IV CONT (23:50)
[2023-06-27] VITALS (15 sets, daily range): BP systolic 102–123; BP diastolic 61–79; PULSE 72–97; RESP 14–20; TEMP 36.2–37.6; O2SAT 98–100
[2023-06-27] MEDS: HYDROmorphone HCL INJ (*CRX) 1 MG/ML SYR IV PUSH ×7 (01:02→23:16)
[2023-06-27] MEDS: LACTATED RINGERS 1,000 ML 125 ML IV CONT (08:02)
--- NOTE | 2023-06-27 08:15 | WPDURCON ---
Urology Consult Note HPI Date Seen: 06/27/23 Time Seen: 08:15 Requesting Physician: Vladimir Quiñones MD Primary Care Provider: Faby Conroy, Consult Narrative Narrative: Erum Wallis is a 33 year old female [facility] Past Medical History Medical History History of pre-eclampsia Request for sterilization Surgical History Surgical History H/O lithotripsy Hx of cholecystectomy Family History Family History Mother Kidney stone FH: cholecystectomy Other No pertinent family history Social History Social History Smoking status: Never smoker Second hand tobacco smoke exposure: No Alcohol intake: never Substance use: never Do You Feel Safe in your Home?: Yes Lack of Transportation: No Lack of Food: Never True Current Housing: I Have Housing Concerned About Future Housing: No Difficulty Paying Gas/Electric Bills: No Difficulty Paying for Meds: No Currently Unemployed: No Education: Don't Know Difficulty w/ Childcare or Family Care: No Gender identity (if verbalized by the patient): Female Spiritual care concerns: No Meds Home Medications and Allergies Home Medications Medication Instructions Recorded Confirmed Type No Home Medications 06/27/23 06/27/23 History Allergies Allergy/AdvReac Type Severity Reaction Status Date / Time Penicillins Allergy Unknown Hives Verified 06/26/23 19:57 Vital Signs Vital Signs - 24 hr 06/26/23 19:39 06/26/23 20:23 06/26/23 20:30 Temperature 36.8 C Pulse Rate 92 82 73 Respiratory Rate 19 21 H 16 Blood Pressure 141/70 H Pulse Oximetry 100 100 100 Oxygen Delivery 06/26/23 22:24 06/26/23 23:25 06/27/23 00:00 Temperature 37.1 C Pulse Rate 79 68 72 Respiratory Rate 22 H 20 Blood Pressure 122/74 Pulse Oximetry 100 100 Oxygen Delivery 06/26/23 23:40 06/27/23 04:00 06/27/23 05:03 Temperature 36.8 C Pulse Rate 83 83 Respiratory Rate 20 Blood Pressure 110/68 Pulse Oximetry 99 Oxygen Delivery Room Air Results Labs 06/26/23 20:21 06/26/23 20:21 Labs: Short CBC 06/26/23 Range/Units 20:21 WBC 11.2 H (4.5-10.0) K/mm3 Hgb 11.4 L (12.0-15.0) g/dL Hct 35.4 L (37.0-47.0) % Plt Count 216 (150-375) k/mm3 BMP 06/26/23 20:21 Sodium 138 Potassium 3.7 Chloride 103 Carbon Dioxide 28 BUN 15 Creatinine 0.60 L Glucose 109 Calcium 9.4 Liver Function 06/26/23 Range/Units 20:21 Total Bilirubin 0.4 (0.2-1.3) mg/dL AST 28 (14-36) U/L ALT 31 (6-35) U/L Alkaline Phosphatase 81 (38-126) U/L Albumin 3.8 (3.5-5.1) g/dL Urine 06/26/23 Range/Units 20:21 Urine Color Yellow (Yellow) Urine Appearance Cloudy H (Clear) Urine pH 7.0 (5.0-9.0) Ur Specific [place] 1.015 (1.001-1.035) Urine Protein 1+ H (Negative) mg/dL Urine Glucose (UA) Negative (Negative) mg/dL
--- NOTE | 2023-06-27 08:17 | WPDURCON ---
Assessment and Plan Assessment and plan (1) Left ureteral calculus: Code(s): N20.1 - Calculus of ureter Status: Acute Assessment and Plan: given her urinary tract infection will simply proceed with cysto left retrograde left stent placement by myself or Dr. Denise today. The stone will need to be addressed at a later point time. (2) Left renal stone: Code(s): N20.0 - Calculus of kidney Status: Acute Assessment and Plan: See above (3) Medullary calcification of kidney: Code(s): N28.89 - Other specified disorders of kidney and ureter Status: Acute Assessment and Plan: patient will need to be evaluated by Nephrology at some point for metabolic stone evaluation and further management of her medullary nephrocalcinosis. (4) UTI (urinary tract infection): Code(s): N39.0 - Urinary tract infection, site not specified Status: Acute Assessment and Plan: Cultures pending and will be treated appropriately based on sensitivities Urology Consult Note HPI Date Seen: 06/27/23 Time Seen: 08:18 Requesting Physician: Vladimir Quiñones MD Primary Care Provider: Faby ConroyMD Consult Narrative Reason for consult: Left distal ureteral as well as renal pelvic stone with UTI Narrative: Erum Wallis is a 33 year old female who presented the emergency room with left flank and left lower quadrant pain associated with some nausea and vomiting. Evaluation in the emergency room revealed a 1.2 cm distal left ureteral calculus with hydronephrosis. She also has a 2 x 1.2 cm left renal pelvic stone. There is also evidence of medullary nephrocalcinosis. She states that she had 1 prior stone. She does not have a hardware design engineer or other urologist at this time. Review of Systems Review of Systems: All systems reviewed & are unremarkable except as noted in HPI and below PMFSH Past Medical History Medical History History of pre-eclampsia Request for sterilization Surgical History Surgical History H/O lithotripsy Hx of cholecystectomy Family History Family History Mother Kidney stone FH: cholecystectomy Other No pertinent family history Social History Social History Smoking status: Never smoker Second hand tobacco smoke exposure: No Alcohol intake: never Substance use: never Do You Feel Safe in your Home?: Yes Lack of Transportation: No Lack of Food: Never True Current Housing: I Have Housing Concerned About Future Housing: No Difficulty Paying Gas/Electric Bills: No Difficulty Paying for Meds: No Currently Unemployed: No Education: Don't Know Difficulty w/ Childcare or Family Care: No Gender identity (if verbalized by the patient): Female Spiritual care concerns: No Meds Home Medications and Allergies Home Medications Medication Instructions Recorded Confirmed Type No Home Medications 06/27/23 06/27/23 History Allergies Allergy/AdvReac Type Severity Reaction Status Date / Time Penicillins Allergy Unknown Hives Verified 06/26/23 19:57 Vital Signs Vital Signs - 24 hr 06/26/23 19:39 06/26/23 20:23 06/26/23 20:30 Temperature 36.8 C Pulse Rate 92 82 73 Respiratory Rate 19 21 H 16 Blood Pressure 141/70 H Pulse Oximetry 100 100 100 Oxygen Delivery 06/26/23 22:24 06/26/23 23:25 06/27/23 00:00 Temperature 37.1 C Pulse Rate 79 68 72 Respiratory Rate 22 H 20 Blood Pressure 122/74 Pulse Oximetry 100 100 Oxygen Delivery 06/26/23 23:40 06/27/23 04:00 06/27/23 05:03 Temperature 36.8 C Pulse Rate 83 83 Respiratory Rate 20 Blood Pressure 110/68 Pulse Oximetry 99 Oxygen Delivery Room Air Exam Const: Genera
[2023-06-27] MEDS: ONDANSETRON INJ 4 MG/2 ML VIAL IV PUSH ×3 (08:34→17:05)
[2023-06-27] MEDS: LACTATED RINGERS 1,000 ML 30 ML IV CONT (09:10)
--- NOTE | 2023-06-27 10:10 | PM.IMPN ---
Progress Note: A&P Assessment and Plan (1) UTI (urinary tract infection): Code(s): N39.0 - Urinary tract infection, site not specified Status: Acute Assessment and Plan: 06/27/23: UA showing 1+ protein, 2+ ur blood, + nitrates, 3+ leukocytes, >100 urine WBC's, rare bacteria WBC 11.2, BUN 15, creatinine 0.6, eGFR >60 UC obtained and is pending Continue IV Rocephin (2) Kidney stone: Code(s): N20.0 - Calculus of kidney Status: Acute Assessment and Plan: 06/27/23: CT of the abdomen/pelvis revealed 1.2 cm distal left ureteral stone with moderate left hydroureteronephrosis to this level, additionally 2.4 x 1.0 cm nonobstructing stone at the left renal pelvis, medullary nephrocalcinosis bilaterally. Abdomen x-ray revealing Bilateral nephrolithiasis, with 2 ovoid opacities representing ureteral stone. Urology was consulted Patient taken to OR today for stent placement to left ureter. Continue with pain and nausea control see above for additional plan of care. Time Spent With Patient Time with patient: 25 - 35 minutes Subjective Date/time seen: 06/27/23 10:10 Interval history: This is a 33 year old female who presented to the hospital on 06/26/23 with a 4 day history of flank pain and nausea. She rates that her pain was 10/10 initially with minimal relief from OTC pain medications. Work up in the hospital includes CT of the abdomen/pelvis which revealed a 1.2 cm distal left ureteral stone with moderate left hydroureteronephrosis, additional 2.4 x 1.0 cm nonobstructing stone at the left renal pelvis, medullary nephrocalcinosis bilaterally. Abdomen x-ray revealed bilateral nephrolithiasis, unable to definitively distinguish between 2 ovoid opacities in the left pelvis one of which likely represents a ureteral stone. Labs revealed WBC 11.2, Hgb 11.4, Hct 35.4, BUN 15, Creatinine 0.60, liver enzymes are normal. UA shown 1+ protein, 2+ blood, + nitrates, 3+ leukocytes, > 100 urine WBC's, rare bacteria present. Urine culture was obtained. Patient given pain medication, 2L NS, Zofran, and tylenol in the ED. She was started on Rocephin 1 gm daily. Urology was consulted. Patient was taken to OR with Urology for stent placement. On examination today patient is alert and oriented x3, lying in the bed. Labs today are essentially normal except for AST is 38, ALT is 36, Total protein 6.0, Albumin is 3.1. Patient reports pain as 4/10 currently. Patient endorses abdominal pain mainly over bladder and has a slight headache. Patient denies any nausea, vomiting, diarrhea, shortness of breath, chest pain, lightheadedness, or dizziness. Plan to continue Rocephin while awaiting UC results and sensitivites. Review of Systems Review of Systems: All systems reviewed & are unremarkable except as noted in HPI and below Constitutional: Constitutional: Reports as per HPI and Reports no additional constitutional complaints Eyes: Eyes: Reports as per HPI and Reports no additional eye complaints ENT: Reports system reviewed and no additional complaints, except as documented and Reports as per HPI Cardiovascular: Cardiovascular: Reports as per HPI and Reports no additional cardiovascular complaints Respiratory: Respiratory: Reports as per HPI and Reports no additional respiratory complaints Gastrointestinal: Gastrointestinal: Reports as per HPI and Reports no additional gastrointestinal complaints Genitourinary: Genitourinary: Reports no additional female genitourinary complaints and Reports as per HPI Musculoskeletal: Musculoskeletal: Reports no additional musculoskeletal complaints and Reports as per HPI Integumentary/Breasts: Skin/Breast: Reports system reviewed and no additional complaints, except as docu and Reports as per HPI Neurologic: Reports system reviewed and no additional complaints, except as documented and Reports as per HPI Psychiatric: Psychiatric: Reports no additional psychiatric complaints and Reports as p
--- NOTE | 2023-06-27 10:21 | WPDUROPN2 ---
Subjective Subjective Date/Time Seen: 06/27/23 10:21 Interval history: CT scan reviewed. KUB reviewed as well. I will place ureteral stent today. She will need definitive stone management in the future. She will likely need a percutaneous nephrolithotomy due to the size of the renal pelvic stone. She be discharged home once her urine culture returns on appropriate antibiotics if needed Objective Data Vital Signs Vital Signs: Vital Signs - 24 hr 06/26/23 19:39 06/26/23 20:23 06/26/23 20:30 Temperature 98.2 F Pulse Rate 92 82 73 Respiratory Rate 19 21 H 16 Blood Pressure 141/70 H Pulse Oximetry 100 100 100 Oxygen Delivery 06/26/23 22:24 06/26/23 23:25 06/27/23 00:00 Temperature 98.8 F Pulse Rate 79 68 72 Respiratory Rate 22 H 20 Blood Pressure 122/74 Pulse Oximetry 100 100 Oxygen Delivery 06/26/23 23:40 06/27/23 04:00 06/27/23 05:03 Temperature 98.3 F Pulse Rate 83 83 Respiratory Rate 20 Blood Pressure 110/68 Pulse Oximetry 99 Oxygen Delivery Room Air 06/27/23 09:28 06/27/23 08:00 Temperature 99.6 F Pulse Rate 73 Respiratory Rate 16 Blood Pressure 110/74 Pulse Oximetry 98 Oxygen Delivery Room Air Room Air Intake/Output Intake/Output: Intake & Output 06/24/23 06/25/23 06/26/23 06/27/23 23:59 23:59 23:59 23:59 Intake Total 1050 1000 Output Total 500 Balance 1050 500 Meds/Results Medications: Active Medications Generic Name Dose Route Start Last Admin Trade Name Freq PRN Reason Stop Dose Admin Hydromorphone HCl 1 mg 06/27/23 00:21 06/27/23 08:02 Hydromorphone Hcl Inj (*Crx) 1 Mg/Ml Syr IV PUSH 1 mg Q3H PRN Administration Pain Rated 7-10 Ceftriaxone Sodium 1 gm in 50 mls @ 100 mls/hr 06/27/23 21:00 Rocephin 1 Gm/Ns 50 Ml IVPB Q24H ANNIE Lactated Ringer's 1,000 mls @ 125 mls/hr 06/26/23 22:05 06/27/23 09:00 Lr - Lactated Ringers Iv IV CONT 0 mls/hr .Q8H ANNIE Infusion Ondansetron HCl 4 mg 06/27/23 00:21 06/27/23 08:34 Ondansetron Inj 4 Mg/2 Ml Vial IV PUSH 4 mg Q4H PRN Administration Nausea And Vomiting Radiology Results: ITS Impressions Abdomen/Pelvis CT 06/26/23 20:41 Impression: 1.2 cm distal left ureteral stone with moderate left hydroureteronephrosis to this level. Additional 2.4 x 1.0 cm nonobstructing stone at the left renal pelvis. Medullary nephrocalcinosis bilaterally. Abdomen X-Ray 06/27/23 08:50 IMPRESSION: 1. Bilateral nephrolithiasis. Unable to definitively distinguish between 2 ovoid opacities in the left pelvis one of which likely represents the distal left ureteral stone seen on CT. Labs Labs: Laboratory Results - last 24 hr 06/26/23 06/26/23 20:21 23:29 WBC 11.2 H RBC 3.83 L Hgb 11.4 L Hct 35.4 L MCV 92.4 MCH 29.8 MCHC 32.2 RDW 13.2 Plt Count 216 MPV 10.6 H Immature Gran % (Auto) 0.5 Neut % (Auto) 81.8 H Lymph % (Auto) 10.7 L [place] % (Auto) 5.8 Eos % (Auto) 0.9 Baso % (Auto) 0.3 Lymph # (Auto) 1.20 [place] # (Auto) 0.7 H Eos # (Auto) 0.1 Baso # (Auto) 0.0 Abs Immat Gran (auto) 0.06 H Absolute Neuts (auto) 9.2 H Absolute Nucleated RBC 0.0 Nucleated RBC % 0.0 Sodium 138 Potassium 3.7 Chloride 103 Carbon Dioxide 28 Anion Gap 7 L BUN 15 Creatinine 0.60 L Estim Creat Clear Calc 110 Estimated GFR > 60 Glucose 109 POC Capillary Glucose 95 Calcium 9.4 Total Bilirubin 0.4 AST 28 ALT 31 Alkaline Phosphatase 81 Total Protein 7.0 Albumin 3.8 Lipase 111 Urine Color Yellow Urine Appearance Cloudy H Urine pH 7.0 Ur Specific [place] 1.015 Urine Protein 1+ H Urine Glucose (UA) Negative Urine Ketones Negative Ur Blood (Man) 2+ H Urine Nitrate Positive H Urine Bilirubin Negative Urine Urobilinogen 1.0 Leukocyte Esterase Rfl 3+ H Urine RBC 51-100 Urine WBC >100 H Ur Squamous Epith Cells None seen Urine B
--- NOTE | 2023-06-27 10:22 | WPDHPUPDATE1 ---
History and Physical Update Update Date/Time: 06/27/23 10:22 History and Physical has been reviewed, including an updated exam of the patient. There are NO changes in the patient's condition. Risks, benefits, and alternatives have been discussed and questions answered. Patient agrees to proceed with procedure.
[2023-06-27] MEDS: LIDOCAINE HCL 2% GEL UROJET 10 ML PKG MUCOUS MEM (10:58)
--- NOTE | 2023-06-27 10:59 | P.OP_ITS ---
Procedure Note - Detailed Date of Procedure 06/27/23 Pre-op Diagnosis Calculus kidney Calculus ureter Abnormal urinalysis Post-op Diagnosis Same Procedure Performed Cystoscopy, left retrograde pyelogram, left ureteral stent placed Surgeon Cam Denise MD Anesthesia General Indications This is a young woman with history of stone disease. She has a large ureteral stone and a even larger renal pelvic stone. She has an abnormal urinalysis. We will place a stent today with definitive stone management follow. She understands risks of bleeding, infection, inability to place the stent, damage to the urinary tract. She agrees to proceed Findings 1.2 cm distal left ureteral stone. Large renal stone filling the renal pelvis Description of Procedure She was correctly identified. Informed consent obtained. She from the operating room. She was given general anesthesia. She was already on appropriate perioperative antibiotics. She was placed in dorsal lithotomy position. She was prepped draped sterile fashion. Time-out performed. Cystoscopy revealed debris within her bladder. There is no tumors or other artifacts. There is no stone. Marketing Support Coordinator radiograph revealed the ureteral stone and the renal pelvic stone. I did a gentle retrograde pyelogram and left. She had moderate hydronephrosis. Ureteral stone was mobile and seen as a filling defect. The large renal pelvic stone was seen as a filling defect as well. I placed 4.8 variable length stent. Proximal coil the upper pole kidney. Distal coil the bladder. The bladder was drained. She was awakened transferred PACU in stable condition Estimated Blood Loss 0 Urine Output 50 Drains No Packing No Pathology None sent Complications No immediate complications Condition Stable
--- NOTE | 2023-06-27 11:41 | SUR.PHASEI ---
Pt. cell phone returned to patient in PACU prior to transfer back to floor.
[2023-06-27 12:29] LABS: Basophils Percent Auto 0.1 % (0.2-1.2); Eosinophils Absolute Auto 0.1 K/mm3 (0-0.3); Eosinophils Percent Auto 0.7 % (0-4.4); Hematocrit 33.1 % (37.0-47.0); Hemoglobin 10.4 g/dL (12.0-15.0); Immature Granulocyte Absolute 0.03 K/mm3 (0.00-0.031); Immature Granulocyte Percent A 0.4 % (0-0.5); Lymphocytes Absolute Auto 0.48 K/mm3 (0.9-3.2); Mean Corpuscular HGB Conc 31.4 g/dl (32-36); Mean Corpuscular Volume 95.4 fl (80-100); Mean Platelet Volume 10.3 fl (7.4-10.4); Monocytes Absolute Auto 0.2 K/mm3 (0.1-0.6); Monocytes Percent Auto 2.9 % (2.6-8.5); Neutrophils Percent Auto 88.9 % (45.5-73.1); Platelet Count Result 174 k/mm3 (150-375); Red Blood Count 3.47 M/mm3 (4.2-5.4); Red Cell Distribution Width 13.2 % (11.5-14.5); White Blood Count 6.8 K/mm3 (4.5-10.0)
[2023-06-27 12:41] LABS: Alanine Aminotransferase 36 U/L (6-35); Albumin Level 3.1 g/dL (3.5-5.1); Alkaline Phosphatase 87 U/L (38-126); Anion Gap 6 mmol/L (8-16); Aspartate Amino Transferase 38 U/L (14-36); Bilirubin,Total 0.7 mg/dL (0.2-1.3); Blood Urea Nitrogen 5 mg/dL (7-17); Calcium 8.2 mg/dL (8.4-10.2); Carbon Dioxide 23 mmol/L (22-30); Chloride 108 mmol/L (98-107); Estimated CRCL calculation 136 ml/min; Estimated Glomerular Filt Rate > 60; Glucose 91 mg/dL (65-110); Potassium 3.8 mmol/L (3.4-5.0); Sodium 137 mmol/L (137-145)
[2023-06-27] MEDS: HYDROcodone/acetaminophen (*CRX) 5-325 MG TABLET 1 TAB PO (13:28)
[2023-06-27] MEDS: oxyBUTYnin CHLORIDE 5 MG TABLET PO (19:48)
[2023-06-28] VITALS (7 sets, daily range): BP systolic 111–126; BP diastolic 63–84; PULSE 64–101; RESP 15–20; TEMP 36.4–37.1; O2SAT 97–100
[2023-06-28] MEDS: HYDROmorphone HCL INJ (*CRX) 1 MG/ML SYR IV PUSH ×6 (02:34→20:57)
[2023-06-28 07:02] LABS: Basophils Percent Auto 0.3 % (0.2-1.2); Eosinophils Absolute Auto 0.1 K/mm3 (0-0.3); Eosinophils Percent Auto 1.3 % (0-4.4); Hematocrit 31.5 % (37.0-47.0); Hemoglobin 9.8 g/dL (12.0-15.0); Immature Granulocyte Absolute 0.02 K/mm3 (0.00-0.031); Immature Granulocyte Percent A 0.3 % (0-0.5); Lymphocytes Percent Auto 22.5 % (18.3-44.2); Mean Corpuscular HGB Conc 31.1 g/dl (32-36); Mean Corpuscular Hemoglobin 29.7 pg (26-34); Mean Corpuscular Volume 95.5 fl (80-100); Mean Platelet Volume 11.2 fl (7.4-10.4); Monocytes Absolute Auto 0.8 K/mm3 (0.1-0.6); Neutrophils Percent Auto 65.6 % (45.5-73.1); Platelet Count Result 181 k/mm3 (150-375); Red Cell Distribution Width 13.3 % (11.5-14.5); White Blood Count 7.6 K/mm3 (4.5-10.0)
[2023-06-28 07:15] LABS: Alanine Aminotransferase 41 U/L (6-35); Alkaline Phosphatase 83 U/L (38-126); Anion Gap 4 mmol/L (8-16); Aspartate Amino Transferase 35 U/L (14-36); Bilirubin,Total 0.1 mg/dL (0.2-1.3); Blood Urea Nitrogen 6 mg/dL (7-17); Calcium 8.3 mg/dL (8.4-10.2); Carbon Dioxide 25 mmol/L (22-30); Chloride 109 mmol/L (98-107); Estimated CRCL calculation 115 ml/min; Estimated Glomerular Filt Rate > 60; Glucose 106 mg/dL (65-110); Potassium 3.9 mmol/L (3.4-5.0); Sodium 138 mmol/L (137-145)
--- NOTE | 2023-06-28 07:47 | PM.IMPN ---
Progress Note: A&P Assessment and Plan (1) UTI (urinary tract infection): Code(s): N39.0 - Urinary tract infection, site not specified Status: Acute Assessment and Plan: 06/27/23: UA showing 1+ protein, 2+ ur blood, + nitrates, 3+ leukocytes, >100 urine WBC's, rare bacteria WBC 11.2, BUN 15, creatinine 0.6, eGFR >60 UC obtained and is pending Continue IV Rocephin 06/28/23: UC pending Continue Rocephin WBC down to 7.6 today (2) Kidney stone: Code(s): N20.0 - Calculus of kidney Status: Acute Assessment and Plan: 06/27/23: CT of the abdomen/pelvis revealed 1.2 cm distal left ureteral stone with moderate left hydroureteronephrosis to this level, additionally 2.4 x 1.0 cm nonobstructing stone at the left renal pelvis, medullary nephrocalcinosis bilaterally. Abdomen x-ray revealing Bilateral nephrolithiasis, with 2 ovoid opacities representing ureteral stone. Urology was consulted Patient taken to OR today for stent placement to left ureter. Continue with pain and nausea control see above for additional plan of care. 06/28/23: Post op day 1 from left ureter stent placement Urology following Continue with pain control efforts, patient reporting increased pain with urination today. She will discuss with Urology team Time Spent With Patient Time with patient: 15 - 25 minutes Subjective Date/time seen: 06/28/23 07:47 Interval history: 06/27/23: This is a 33 year old female who presented to the hospital on 06/26/23 with a 4 day history of flank pain and nausea. She rates that her pain was 10/10 initially with minimal relief from OTC pain medications. Work up in the hospital includes CT of the abdomen/pelvis which revealed a 1.2 cm distal left ureteral stone with moderate left hydroureteronephrosis, additional 2.4 x 1.0 cm nonobstructing stone at the left renal pelvis, medullary nephrocalcinosis bilaterally. Abdomen x-ray revealed bilateral nephrolithiasis, unable to definitively distinguish between 2 ovoid opacities in the left pelvis one of which likely represents a ureteral stone. Labs revealed WBC 11.2, Hgb 11.4, Hct 35.4, BUN 15, Creatinine 0.60, liver enzymes are normal. UA shown 1+ protein, 2+ blood, + nitrates, 3+ leukocytes, > 100 urine WBC's, rare bacteria present. Urine culture was obtained. Patient given pain medication, 2L NS, Zofran, and tylenol in the ED. She was started on Rocephin 1 gm daily. Urology was consulted. Patient was taken to OR with Urology for stent placement. On examination today patient is alert and oriented x3, lying in the bed. Labs today are essentially normal except for AST is 38, ALT is 36, Total protein 6.0, Albumin is 3.1. Patient reports pain as 4/10 currently. Patient endorses abdominal pain mainly over bladder and has a slight headache. Patient denies any nausea, vomiting, diarrhea, shortness of breath, chest pain, lightheadedness, or dizziness. Plan to continue Rocephin while awaiting UC results and sensitivities. 06/28/23: On examination today patient is alert oriented x4, lying in the bed. VSS, she is afebrile, currently on room air. She rates her abdominal pain at a 6/10 prior to getting pain medication, now her pain is well controlled. She states that she has been having increased pain with urinating. I told her to bring this up with Urology today. Labs today reveal WBC 7.6, Hgb 9.8, Hct 31.5, Ca+ 8.3, ALT 41, Albumin 6.0, Total protein 3.0. Urine culture is still pending. Continue Rocephin. Review of Systems Review of Systems: All systems reviewed & are unremarkable except as noted in HPI and below Constitutional: Constitutional: Reports as per HPI and Reports no additional constitutional complaints Eyes: Eyes: Reports as per HPI and Reports no additional eye complaints ENT: Reports system reviewed and no additional complaints, except as documented and Reports as per HPI Cardiovascular: Cardiovascular: Reports as per HPI and Reports no additional
--- NOTE | 2023-06-28 08:10 | WPDANESPN ---
Anes - Prog Note Post-Op Date/Time: 06/28/23 08:10 Cardiovascular status: normal Respiratory status: normal Airway patency: baseline Mental status: baseline Post-Op hydration status: normal Vital Signs: Last Vital Signs Temp 37.1 C 06/28/23 04:00 Pulse 101 H 06/28/23 04:00 Resp 20 06/28/23 04:00 BP 119/64 06/28/23 04:00 Pulse Ox 100 06/28/23 04:00 O2 Del Method Room Air 06/27/23 11:57 O2 Flow Rate 10 06/27/23 11:09 Pain Score (VAS): 08/20 I/O: Intake & Output 06/27/23 06/28/23 06/28/23 23:59 07:59 15:59 Intake Total 948 650 Output Total 700 Balance 948 -50 Laboratory Tests 06/28/23 06:30 06/28/23 06:30 06/27/23 06/28/23 12:22 06:30 WBC 6.8 7.6 RBC 3.47 L 3.30 L Hgb 10.4 L 9.8 L Hct 33.1 L 31.5 L MCV 95.4 95.5 MCH 30.0 29.7 MCHC 31.4 L 31.1 L RDW 13.2 13.3 Plt Count 174 181 MPV 10.3 11.2 H Immature Gran % (Auto) 0.4 0.3 Neut % (Auto) 88.9 H 65.6 Lymph % (Auto) 7.0 L 22.5 [place] % (Auto) 2.9 10.0 H Eos % (Auto) 0.7 1.3 Baso % (Auto) 0.1 L 0.3 Lymph # (Auto) 0.48 L 1.70 [place] # (Auto) 0.2 0.8 H Eos # (Auto) 0.1 0.1 Baso # (Auto) 0.0 0.0 Abs Immat Gran (auto) 0.03 0.02 Absolute Neuts (auto) 6.0 5.0 Absolute Nucleated RBC 0.0 0.0 Nucleated RBC % 0.0 0.0 Sodium 137 138 Potassium 3.8 3.9 Chloride 108 H 109 H Carbon Dioxide 23 25 Anion Gap 6 L 4 L BUN 5 L D 6 L Creatinine 0.50 L 0.60 L Estim Creat Clear Calc 136 115 Estimated GFR > 60 > 60 Glucose 91 106 Calcium 8.2 L 8.3 L Total Bilirubin 0.7 0.1 L AST 38 H 35 ALT 36 H 41 H Alkaline Phosphatase 87 83 Total Protein 6.0 L 6.0 L Albumin 3.1 L 3.0 L Post-procedural complaints: none Patient Feedback: Patient satisfied with anesthetic care.
[2023-06-28] MEDS: oxyBUTYnin CHLORIDE 5 MG TABLET PO ×3 (09:00→16:58)
[2023-06-28] MEDS: ONDANSETRON INJ 4 MG/2 ML VIAL IV PUSH ×2 (09:00→17:00)
[2023-06-28] MEDS: HYDROcodone/acetaminophen (*CRX) 5-325 MG TABLET 1 TAB PO (12:34)
[2023-06-28] MEDS: PHENAZOPYRIDINE HCL 100 MG TABLET 200 MG PO (20:57)
[2023-06-29] MEDS: HYDROmorphone HCL INJ (*CRX) 1 MG/ML SYR IV PUSH ×2 (02:41→05:48)
[2023-06-29 04:00] VITALS: BP 108/67; PULSE 62; RESP 20; TEMP 36.6; O2SAT 100
[2023-06-29 06:13] LABS: Basophils Percent Auto 0.3 % (0.2-1.2); Eosinophils Absolute Auto 0.1 K/mm3 (0-0.3); Eosinophils Percent Auto 2.3 % (0-4.4); Hematocrit 31.7 % (37.0-47.0); Immature Granulocyte Absolute 0.01 K/mm3 (0.00-0.031); Immature Granulocyte Percent A 0.2 % (0-0.5); Lymphocytes Absolute Auto 2.27 K/mm3 (0.9-3.2); Lymphocytes Percent Auto 37.6 % (18.3-44.2); Mean Corpuscular HGB Conc 31.5 g/dl (32-36); Mean Corpuscular Hemoglobin 29.7 pg (26-34); Mean Corpuscular Volume 94.1 fl (80-100); Mean Platelet Volume 10.5 fl (7.4-10.4); Monocytes Absolute Auto 0.5 K/mm3 (0.1-0.6); Monocytes Percent Auto 7.5 % (2.6-8.5); Neutrophils Absolute Auto 3.2 K/mm3 (1.3-6.7); Neutrophils Percent Auto 52.1 % (45.5-73.1); Platelet Count Result 176 k/mm3 (150-375); Red Blood Count 3.37 M/mm3 (4.2-5.4); Red Cell Distribution Width 13.4 % (11.5-14.5)
[2023-06-29 06:35] LABS: Alanine Aminotransferase 68 U/L (6-35); Alkaline Phosphatase 99 U/L (38-126); Anion Gap 4 mmol/L (8-16); Aspartate Amino Transferase 69 U/L (14-36); Bilirubin,Total 0.2 mg/dL (0.2-1.3); Blood Urea Nitrogen 13 mg/dL (7-17); Calcium 8.1 mg/dL (8.4-10.2); Carbon Dioxide 28 mmol/L (22-30); Chloride 105 mmol/L (98-107); Estimated CRCL calculation 115 ml/min; Estimated Glomerular Filt Rate > 60; Glucose 91 mg/dL (65-110); Sodium 137 mmol/L (137-145)
[2023-06-29] MEDS: ONDANSETRON INJ 4 MG/2 ML VIAL IV PUSH (08:27)
--- NOTE | 2023-06-29 12:45 | PM.DS ---
DS: Admitting Diagnosis Discharge Date 06/29/2023 Admitting Diagnosis UTI, kidney stone DS: Discharge Diagnosis Discharge Diagnosis (1) UTI (urinary tract infection): Code(s): N39.0 - Urinary tract infection, site not specified Status: Ruled-out (2) Kidney stone: Code(s): N20.0 - Calculus of kidney Status: Acute (3) Abnormal urinalysis: Code(s): R82.90 - Unspecified abnormal findings in urine Status: Acute (4) Medullary calcification of kidney: Code(s): N28.89 - Other specified disorders of kidney and ureter Status: Acute (5) Left renal stone: Code(s): N20.0 - Calculus of kidney Status: Acute (6) Left ureteral calculus: Code(s): N20.1 - Calculus of ureter Status: Acute DS: Summary Hospital Course Reason for hospitalization: left ureteral stone with apparent UTI Hospital Course: This is a 33 year old female patient with history of recurrent kidney stones who was admitted with left ureteral stone with apparent UTI. She was started on Rocephin an Urology placed left ureteral stent. Patient will require further procedure for stone removal but she is [place] out of [place] this [place]. She informs me that she plans to return locally to have further urologic care in the short term until she can establish where she is moving. She was informed to call Urology clinic to schedule further procedure as discussed. Urine culture showed normal sha growth. Patient will be discharged with cefdinir BID for 5 days as well as pain medication, oxybutynin and Pyridium. Status at Discharge Cognitive/behavioral status at discharge: awake, alert, oriented and pleasant Functional status at discharge: independent ambulation Overall status at discharge: patient is progressing back to baseline Time Spent with Patient Time attestation: Total time spent providing and/or coordinating discharge services: 32 minutes Time spent: Greater than 30 minutes Exam Narrative: General: In no acute distress, well nourished Head: atraumatic, normocephalic Eyes: EOMI, PERRLA, sclera clear ENT: moist mucous membranes, nasal passages clear Neck: supple, no JVD, no adenopathy, trachea midline Cardiac: Normal S1 and S2. RRR. No murmur, gallops or friction rubs, peripheral pulses intact. Respiratory: Lungs clear to auscultation, no adventitious lung sounds Gastrointestinal: soft, non-distended, Tenderness over left flank, normoactive bowel sounds. Extremities: moves all extremities well, no edema, good ROM, strength 5/5 Skin: clean, dry, intact. No wounds or lesions. Neuro: Alert and oriented x4, cranial nerves intact, no neuro deficits. Psych: normal mood, normal affect, interactive DS: Data Data Completed and Pending Completed studies during hospitalization: abdomen/pelvis CT, abdomen XR, Ureter stent XR Labs on day of discharge: Labs from last 24 hours 06/29/23 06:00 WBC 6.0 RBC 3.37 L Hgb 10.0 L Hct 31.7 L MCV 94.1 MCH 29.7 MCHC 31.5 L RDW 13.4 Plt Count 176 MPV 10.5 H Immature Gran % (Auto) 0.2 Neut % (Auto) 52.1 Lymph % (Auto) 37.6 [place] % (Auto) 7.5 Eos % (Auto) 2.3 Baso % (Auto) 0.3 Lymph # (Auto) 2.27 [place] # (Auto) 0.5 Eos # (Auto) 0.1 Baso # (Auto) 0.0 Abs Immat Gran (auto) 0.01 Absolute Neuts (auto) 3.2 Absolute Nucleated RBC 0.0 Nucleated RBC % 0.0 Sodium 137 Potassium 4.0 Chloride 105 Carbon Dioxide 28 Anion Gap 4 L BUN 13 D Creatinine 0.60 L Estim Creat Clear Calc 115 Estimated GFR > 60 Glucose 91 Calcium 8.1 L Total Bilirubin 0.2 AST 69 H ALT 68 H Alkaline Phosphatase 99 Total Protein 6.0 L Albumin 3.0 L Procedures/Treatments: Cystoscopy, left retrograde pyelogram, left ureteral stent placed Discharge Plan Discharge Attending physician on discharge: Matthew Vega Consulting providers: Fabiano Cota Discharging Clinician: José Miguel Lopez Anticipated Discharge Date/[place]
== END 2023-06-29 13:50 | disposition home or self-care (01) | DRG 463 ==
LOC: ANHED 21:15 → ANH3MEDSUR 22:52
PROVIDERS: Nurse Practitioner Acute Care; Urology; Admitting Provider Internal Medicine; Emergency Provider Emergency Medicine; PCP Family Medicine; Visit Provider Nurse Practitioner
PROC: 0T774DZ Dilation of Left Ureter with Intraluminal Device, Percutaneous Endoscopic Approach (ICD-10-PCS; CPT 52352; principal; 2023-06-27 11:00)
DX: N13.6 Pyonephrosis (principal); Z90.49 Acquired absence of other specified parts of digestive tract; Z87.442 Personal history of urinary calculi
CPT/HCPCS: 36415; 74018; 74176; 80053; 81001; 81025; 82948; 83690; 85025; 87086; 87088; 96361; 96365; 96375; 99285; A9270; C1758; C1769; C2617; J0696; J1100; J1170; J2250; J2405; J2704; J7030; J7120; Q9966

== ENCOUNTER 2024-01-30 15:37 | Emergency (ER) | payer MEDICAID, SELFPAY ==
[2024-01-30 16:13] VITALS: BP 114/64; PULSE 85; RESP 18; TEMP 36.6; O2SAT 100
--- NOTE | 2024-01-30 16:33 | ED.URI ---
HPI - URI/Sore Throat General Chief Complaint: Upper Respiratory Infection Stated Complaint: Sore Throat/ Cough / Body Ache Time Seen by Provider: 01/30/24 16:40 Source: patient, RN notes reviewed and old records reviewed Mode of arrival: ambulatory Limitations: no limitations History of Present Illness HPI Narrative: 33-year-old female presents to the [facility] with complaints ear pain, cough, body aches. Had taken Aleve, reports taking 1 Mucinex which helped last night. No other treatment prior to arrival started, 4 days Related Data Home Medications Medication Instructions Recorded Confirmed No Home Medications 01/30/24 01/30/24 Allergies Allergy/AdvReac Type Severity Reaction Status Date / Time Penicillins AdvReac Mild Hives Verified 01/30/24 16:02 Review of Systems Review of Systems: All systems reviewed & are unremarkable except as noted in HPI and below Constitutional: Constitutional: Reports as per HPI and Reports body ache(s) Eyes: Eyes: Reports no additional eye complaints ENT: Reports as per HPI and Reports otalgia Cardiovascular: Cardiovascular: Reports no additional cardiovascular complaints, Denies chest pain and Denies dyspnea Respiratory: Respiratory: Reports as per HPI, Denies chest congestion, Reports cough and Denies dyspnea Gastrointestinal: Gastrointestinal: Reports no additional gastrointestinal complaints, Denies abdominal pain, Denies nausea and Denies vomiting Musculoskeletal: Musculoskeletal: Reports no additional musculoskeletal complaints Integumentary/Breasts: Skin/Breast: Reports system reviewed and no additional complaints, except as docu Neurologic: Reports system reviewed and no additional complaints, except as documented Psychiatric: Psychiatric: Reports no additional psychiatric complaints Allergic/Immunologic: Allergic/Immunologic: Reports no additional allergic/immunologic complaints [facility] Past Medical History Medical History History of pre-eclampsia Request for sterilization Surgical History Surgical History H/O lithotripsy Hx of cholecystectomy Family History Family History Mother Kidney stone FH: cholecystectomy Other No pertinent family history Social History Social History Smoking status: Never smoker Second hand tobacco smoke exposure: No Alcohol intake: never Substance use: never Do You Feel Safe in your Home?: Yes Lack of Transportation: No Lack of Food: Never True Current Housing: I Have Housing Concerned About Future Housing: No Difficulty Paying Gas/Electric Bills: No Difficulty Paying for Meds: No Currently Unemployed: No Education: Don't Know Difficulty w/ Childcare or Family Care: No Gender identity (if verbalized by the patient): Female Spiritual care concerns: No Comments At the time of my signature, I reviewed and agree with the nursing past medical, surgical, social, and family history. There is no relevant family history pertinent to the patient complaint. Exam Const: General: cooperative, healthy appearing, comfortable, no acute distress, well developed, alert and well nourished Nutritional Appearance: well nourished Orientation/consciousness: patient oriented x3 Limitations: no limitations HENMT: Head: normal to inspection Ears: hearing grossly normal bilaterally, external ears normal, EAC's normal, mastoids normal, no periauricular adenopathy and TM abnormal bulging on the right and with fluid behind the TM on the right; not erythematous Face/Nose/Sinus: Normal external nose present, Normal nares present, Normal nasal mucous membranes and turbinates present, Nasal discharge present clear bilateral, normal facial exam and face symmetric Face and
== END 2024-01-30 16:54 | disposition home or self-care (01) ==
PROVIDERS: Emergency Provider Nurse Practitioner
DX: J06.9 Acute upper respiratory infection, unspecified (principal); H65.01 Acute serous otitis media, right ear; R09.81 Nasal congestion; Z20.822 Contact with and (suspected) exposure to COVID-19
CPT/HCPCS: 87426; 99212; G0463

== ENCOUNTER 2024-03-05 13:21 | Emergency (ER) | payer MEDICAID, SELFPAY ==
[2024-03-05 13:32] VITALS: BP 119/72; PULSE 65; RESP 18; TEMP 36.8; O2SAT 100
--- NOTE | 2024-03-05 13:50 | ED.URI ---
HPI - URI/Sore Throat General Chief Complaint: Upper Respiratory Infection Stated Complaint: Sore throat / headache Time Seen by Provider: 03/05/24 13:43 Source: patient and RN notes reviewed Mode of arrival: ambulatory Limitations: no limitations History of Present Illness HPI Narrative: Patient presents today with a 2 day history of sore throat, headache, nasal congestion. Denies cough, shortness of breath, fever. Denies known sick contacts. She currently rates her pain 7/10 and has been taking Tylenol without relief. Related Data Home Medications Medication Instructions Recorded Confirmed No Home Medications 01/30/24 03/05/24 Allergies Allergy/AdvReac Type Severity Reaction Status Date / Time Penicillins Allergy Mild Hives Verified 03/05/24 13:33 Review of Systems Review of Systems: CONSTITUTIONAL: Denies body aches, fever, chills, or sweats. EYES: Denies visual changes, redness, or discharge. ENT: Denies rhinorrhea, or otalgia.+ sore throat, congestion CARDIOVASCULAR: Denies chest pain, palpitations, or edema. RESPIRATORY: Denies cough or dyspnea. GASTROINTESTINAL: Denies abdominal pain, nausea, vomiting, or diarrhea. GENITOURINARY: Denies dysuria or hematuria. SKIN: Denies rash, itching, or wounds. MUSCULOSKELETAL: Denies back pain, joint pain, or myalgia. NEUROLOGIC: Denies numbness, tingling, or weakness.+ headache PSYCH: Denies depression or anxiety. [facility] Past Medical History Medical History History of pre-eclampsia Request for sterilization Surgical History Surgical History H/O lithotripsy Hx of cholecystectomy Family History Family History Mother Kidney stone FH: cholecystectomy Other No pertinent family history Social History Social History Smoking status: Never smoker Second hand tobacco smoke exposure: No Alcohol intake: never Substance use: never Do You Feel Safe in your Home?: Yes Lack of Transportation: No Lack of Food: Never True Current Housing: I Have Housing Concerned About Future Housing: No Difficulty Paying Gas/Electric Bills: No Difficulty Paying for Meds: No Currently Unemployed: No Education: Don't Know Difficulty w/ Childcare or Family Care: No Gender identity (if verbalized by the patient): Female Spiritual care concerns: No Comments At time of signature, I have reviewed and agree with nursing past medical, surgical, social and family history unless otherwise noted. Please see nursing chart for further information. There is no relevant family history pertinent to the presenting complaint Exam Narrative: GENERAL: Well-appearing, well-nourished, and in no acute distress. HEAD: Normocephalic, atraumatic. EYES: EOMI. No redness or drainage. Conjunctivae normal. ENT: Mucous membranes pink and moist. Nares clear. No rhinorrhea. TMs normal bilaterally. Throat normal. Uvula midline. NECK: Normal AROM. Supple. No lymphadenopathy. CHEST: No respiratory distress. Clear to auscultation. HEART: Regular rate and rhythm. No murmur appreciated. EXTREMITIES: Normal range of motion. No edema. SKIN: Warm, dry, no rash. Capillary refill normal. Normal skin turgor. NEURO: No focal deficits. Alert and oriented x3. Gait steady. PSYCH: Normal affect. No signs of depression or anxiety. Course Course Level of Care: Express Care Visit Vital Signs Vital signs: Vital Signs Temperature 98.3 F 03/05/24 13:32 Pulse Rate 65 03/05/24 13:32 Respiratory Rate 18 03/05/24 13:32 Blood Pressure 119/72 03/05/24 13:32 Pulse Oximetry 100 03/05/24 13:32 Oxygen Delivery Room Air 03/05/24 13:32 Temperature 98.3 F 03/05/24 13:32 Pulse Rate 65 03/05/24 13:32 Respiratory
[2024-03-05 14:10] LABS: EDSTREPNEGPOS1 Negative (Negative)
== END 2024-03-05 14:12 | disposition home or self-care (01) ==
PROVIDERS: Emergency Provider Nurse Practitioner
DX: J06.9 Acute upper respiratory infection, unspecified (principal)
CPT/HCPCS: 87081; 87880; 99213; G0463

== ENCOUNTER 2024-07-02 16:14 | Emergency (ER) | payer OTHER, SELFPAY ==
--- NOTE | 2024-07-02 16:15 | ED.EAR ---
HPI - Ear Problem General Chief complaint: Ear Stated complaint: ear ache Time Seen by Provider: 07/02/24 16:14 Source: patient Mode of arrival: ambulatory Limitations: no limitations History of Present Illness HPI Narrative: Erum is a 34-year-old female patient presenting to the clinic today with complaints of right ear pain x3 days. She reports no URI symptoms. Denies any fever. Gets frequent ear infections. Related Data Allergies Allergy/AdvReac Type Severity Reaction Status Date / Time Penicillins Allergy Mild Hives Verified 07/02/24 16:15 Review of Systems Review of Systems: Pertinent positives per HPI. Patient denies any fever, chills, rash, headache, visual changes, dizziness, cough, runny nose, sore throat, shortness of breath, chest pain, palpitations, nausea, vomiting, diarrhea, constipation, abdominal pain, or any urinary issues. PMFSH Past Medical History Medical History Request for sterilization History of pre-eclampsia Surgical History Surgical History H/O lithotripsy Hx of cholecystectomy Family History Family History Mother Kidney stone FH: cholecystectomy Other No pertinent family history Social History Social History Smoking status: Never smoker Second hand tobacco smoke exposure: No Alcohol intake: never Substance use: never Do You Feel Safe in your Home?: Yes Lack of Transportation: No Lack of Food: Never True Current Housing: I Have Housing Concerned About Future Housing: No Difficulty Paying Gas/Electric Bills: No Difficulty Paying for Meds: No Currently Unemployed: No Education: Don't Know Difficulty w/ Childcare or Family Care: No Gender identity (if verbalized by the patient): Female Spiritual care concerns: No Comments At the time of my signature, I reviewed and agree with the nursing past medical, surgical, social, and family history. There is no relevant family history pertinent to the patient complaint. Exam Narrative: General: Well-developed, well nourished, in no apparent distress Head: Normocephalic, atraumatic Eyes: Pupils equally round and reactive to light bilaterally, EOM intact, sclera and conjunctive clear, no discharge, lids normal Ears: Left TMs intact and clear, right TM intact, mild bulging, tender to palpation over the right eustachian tube, ear canals clear, no drainage, grossly hearing normal. Nose: Nares patent, no discharge, no inflammation, no sinus tenderness. Mouth: Oropharynx without lesions or masses, good dentition, MMM. Neck: Supple, trachea midline, no enlargement of anterior or posterior cervical nodes, no thyroid masses or goiter palpable. Cardio: Regular rate and rhythm, s1 and s2 normal, no murmur appreciated. Resp: Clear to auscultation bilaterally anteriorly and posteriorly, no rhonchi, rales, wheezing or rubs Course Course Emergency Course: Portions of this record may have been created with voice recognition software. Level of Care: Express Care Visit Vital Signs Vital signs: Vital Signs Temperature 36.6 C 07/02/24 16:21 Pulse Rate 80 07/02/24 16:21 Respiratory Rate 16 07/02/24 16:21 Blood Pressure 116/68 07/02/24 16:21 Pulse Oximetry 100 07/02/24 16:21 Oxygen Delivery Room Air 07/02/24 16:21 Temperature 36.6 C 07/02/24 16:21 Pulse Rate 80 07/02/24 16:21 Respiratory Rate 16 07/02/24 16:21 Blood Pressure 116/68 07/02/24 16:21 Pulse Oximetry 100 07/02/24 16:21 Oxygen Delivery Room Air 07/02/24 16:21 Vital signs reviewed Medical Decision Making MDM Narrative Medical decision making narrative: At the time of visit patient is resting comfortably on the exam table. Patient appears to be nontoxic. Plan: Patient has right to otalgia/eustachian tube dysfunction. Prescription for prednisone was sent to the pharmacy. Supportive measures were discussed with the patient and they voiced understanding discharge instructions and agrees to treatment plan. Return precautions reviewed Differential Diagnosis Differential Diagnosis: Otitis media, otitis externa, eustachian tube dysfunction, cerumen impaction, upper respiratory infection, serous otitis Vital Signs Vital Signs: Vital Signs Temperature 36.6 C 07/02/24 16:21 Pulse Rate 80 07/02/24 16:21 Respiratory Rate 16 07/02/24 16:21 Blood Pressure 116/68 07/02/24 16:21 Pulse Oximetry 100 07/02/24 16:21 Oxygen Delivery Room Air 07/02/24 16:21 Temperature 36.6 C 07/02/24 16:21 Pulse Rate 80 07/02/24 16:21 Respiratory Rate 16 07/02/24 16:21 Blood Pressure 116/68 07/02/24 16:21 Pulse Oximetry 100 07/02/24 16:21 Oxygen Delivery Room Air 07/02/24 16:21 Discharge Plan Discharge Clinical Impression: Acute dysfunction of right eustachian tube Patient Disposition: Home, Self-Care Condition: Stable Instructions: Antibiotic Form, Earache (ED) Additional Instructions: Take any prescribed medications only as directed-prednisone Tylenol/motrin as needed for pain May use heating pad to alleviate pain If you get recurrent ear infections it may be warranted to follow up with ENT. Follow up with your PCP in 3-5 days if symptoms persist. Patient Language: Lithuanian Prescriptions: New prednisone 50 mg tablet 50 mg PO DAILY 5 Days Qty: 5 0RF Follow-up/Referrals: PHYSICIAN,PUBLIC HEALTH PROFESSOR [Non-Staff] - Time of Disposition: 16:29 Quality NIHSS Nursing Documentation ED NIHSS nursing documentation: reviewed/agree
[2024-07-02 16:21] VITALS: BP 116/68; PULSE 80; RESP 16; TEMP 36.6; O2SAT 100
--- OUTSIDE RECORDS SUMMARY | 2024-07-05 14:41 | XMS_ITS | Referral Summary ---
Author Organization [facility] Public [employer] Address [address] [place] [address] Care Team Providers Care Electron Microscopist Name Role Phone Unavailable Primary Care Provider Unavailabl e Source Comments [facility],non-owned Affiliates and Associated Physician Practices is amultiple site organization consisting of ambulatory clinics and hospital sitesin [place], [place] and [place]. This disclosure is being madepursuant to the Care Everywhere program and may not contain all information available regarding this patient. Last updated 18.[facility] [employer] Allergies Active Allergy Reactions Criticality Noted Date Comments Penicillins Angioedema High 03/17/2020 Hives and rash also Medications * Be aware that medications may not be up to date on this document. Alwaysverify current medications with the patient. Medication Sig Dispensed Refills Start Date End Date Status Vit-Fe Fumarate-FA ( VITAMIN) 28-0.8 MG tabletIndications: Take 1 tablet by mouth once daily Reasons: Active vitamin D, ergocalciferol, (DRISDOL) 1.25 MG (59941 UT) capsule Take 50,000 Units by mouth every 30 days Active aspirin (ASPIRIN) 81 MG chew tabletIndications: preeclampsia prevention Take 2 tablets by mouth once daily Reasons: preeclampsia prevention 100 tablet 11 03/19/2020 Active Active Problems Problem Noted Date Diagnosed Date Hx of preeclampsia, prior , currently p regnant 03/19/2020 Assessment & Plan (03/19/2020 12:04 PM CDT): The risk of recurrence of preeclampsia in a subsequent has been reported to be up to 14 percent. Supervision of high-risk of hanna hendricks igravida 03/17/2020 Overview (03/17/2020): Datinw4d u/s within 6 days of uncertain LMP of 10/09/19, making JACE based on ultrasound: 07/21/20 (also, patient had delivery 08/26/19) summary: O positive, negative antibody screen, Hep B Surf Ag: negative, Rubella Immune, RPR: NR, HIV NR Hemoglobin A1c: 4.7% AFP screen: increased risk for NTD, AFP value: 2.84 MoM 24 hour urine protein: 255mg CMP: creatinine: 0.6, AST/ALT: CBC: WBC: 8.4, H/H/P: 12.7/36.4/252 Short interval between pregn ancies affecting , antepartum 03/17/2020 Assessment & Plan (03/19/2020 12:02 PM CDT): Close interval pregnancies (less than 6 months) have an increased risk of delivery and small for gestation age neonates. Elevated AFP 03/17/2020 Overview (03/17/2020): AFP screen: increased risk for NTD, AFP value: 2.84 MoM Assessment & Plan (03/19/2020 12:05 PM CDT): An elevated maternal serum alpha protein is generally a multiple of the median value greater than 2.5. Multiple factors affect maternal serum value of a protein. Maternal weight affects maternal serum alpha fetoprotein concentrations. Heavier women usually have a lower value as result of dilution in the blood volume. Ethnicity also affects interpretation; black women have a 10-15% higher concentration than non-black women, but have a lower incidence of neural tube defects. Insulin dependent diabetic women have values significantly lower than non-diabetic women; however, insulin dependent diabetes increases the risk of neural tube defects 10 times higher than nondiabetic women. Smoking results in higher second-trimester maternal serum AFP values. Erroneous gestational age assessments can also produce false results. A positive screen is not diagnostic of neural tube defects but is an indication for further diagnostic testing. The previous diagnostic standard for an elevated maternal serum alpha fetoprotein was amniocentesis with evaluation of amniotic fluid alpha fetoprotein and acetylcholinesterase (AChE) levels. The amniotic fluid alpha fetoprotein has nearly 100% detection rate for anencephaly and 96-99% detection rate for open spina bifida, with a false-positive rate of 0.7-1.0 percent. Ultrasound as a primary screening tool for spina bifida may identify only 60-80 percent of neural tube defects. Targeted sonographic evaluation in high-risk cases can improve sensitivity up to 97-100 percent, with 100 percent specificity. At present, the most accurate approach is maternal serum alpha fetoprotein in combination with ultrasound imaging and amniocentesis. If position or maternal body habitus prevent optimal visualization, further evaluation by amniocentesis should be offered. Erum was offered the opportunity for diagnostic testing and declined. Based on data from multiple studies, the following associations have been reported for second trimester analytes. Increased AFP (>2.5 MoM) and low uE3 (<0.5 MoM) were both associated with low birthweight and spontaneous miscarriage before 24 weeks of gestation. Unexplained elevated AFP (>2.5 MoM) and or elevated hCG (> 2-4 MoM) that there was an increased risk of . There is an association between AFP and placental abruption, placenta previa, accreta, percreta & Increta. An isolated inhibin A (>2.0 MoM) was significantly associated with , low birthweight, preeclampsia and marginally associated with demise after 24 weeks. For all outcomes the abnormalities of at least two or more analytes were more strongly associated with adverse outcomes than an isolated abnormal analyte value. The optimal management for these pregnancies is not standardized. In light of the unremarkable anatomy survey of the spine and the previous history (including the smaller than expected weight of her last child), I believe the abnormal analytes reflect an increased risk rather than an increased risk for spina bifida. Maternal Medicine recommendations: 1. Aspirin for preeclampsia risk reduction--prescription provided 2. Serial growth every 4 weeks 3. Weekly testing starting at 31 weeks 4. With support delivery initiation in the 39th week Social History Tobacco Use Types Packs/Day Years Used Date Smoking Tobacco: Never Smokeless Tobacco: Never Alcohol Use Standard Drinks/Week Comments Never 0 (1 standard drink = 0.6 oz pur e alcohol) AUDIT-C Answer Date Recorded Q1: How often do you have a drink containing alc ohol? Never 03/19/2020 Average Number of Drinks Not on file 020 Frequency of Binge Drinking Not on file 12/2019 Sex and Gender Information Value Date Recorded Sex Assigned at Female 02/17/2024 3:48 PM CDT Gender Identity Female 02/17/2024 3:48 PM CDT Sexual Orientation Straight 02/17/2024 3: 48 PM CDT Last Filed Vital Signs Vital Sign Reading Time Taken Comments Blood Pressure 144/86 07/08/2020 1:52 PM CHILD CARE DIRECTOR Pulse 80 07/08/2020 1:52 PM CHILD CARE DIRECTOR Temperature 36.4 ??C (97.5 ??F) 07/01/2020 1:09 PM CS T Respiratory Rate - - Oxygen Saturation - - Inhaled Oxygen Concentration - - Weight 87 kg (191 lb 12.8 oz) 03/19/2020 10:55 A M CDT Height 160 cm (5' 3 ) 03/19/2020 10:55 AM CDT Body Mass Index 33.98 03/19/2020 10:55 AM CDT Plan of Treatment Not on file
--- OUTSIDE RECORDS SUMMARY | 2024-07-05 14:41 | XMS_ITS | Clinical Summary ---
Author Organization [facility] Address [address] [place] [id number] Care Team Providers Care Metal Burnisher Name Role Phone Faby Conroy MD Primary Care Provider [phone] Allergies Active Allergy Reactions Criticality Noted Date Comments Penicillins Hives,Itching,Swelling,Rash,Angioedema High 1991 Medications phenazopyridine (PYRIDIUM) 100 mg tabletIndicatio ns:Dysuria,Urin janet Tract Irritation Take 1 tablet (100 mg total) by mouth 3 (three) times a day as needed for urinary pain Active ergocalciferol (VITAMIN D) 50,000 unit capsule Take 1 capsule (50,000 Units total) by mouth once a week 12 capsule Active Additional Information Patient taking differently:50,000 Units oral Weekly,Tuesday , Indications: Vitamin D Deficiency, Informant: Self, Reported on 08/12/2023 ibuprofen (ADVIL,MOTRIN) 400 mg tabletIndicatio ns:Pain Take 1-1.5 tablets (400-600 mg total) by mouth every 6 (six) hours as needed for pain Active Active Problems Problem Noted Date Diagnosed Date Renal stone 08/19/2023 Acute postoperative abdominal pain 08/15/2023 Kidney stone 07/27/2023 Pyelonephritis 07/20/2023 Assessment & Plan (07/21/2023 10:09 AM PHLEBOTOMY PROGRAM COORDINATOR): - Patient with history of recurrent nephrolithiasis with prior lithotripsy - most recently found to have large renal stone (~2.5cm) over L renal pelvis with associated hydroureteronephrosis s/p L ureteral stent placement 06/27/23 with establishment with urology prior to presentation to the ED - Evaluation here with HR 104 with stable BP. Labs with K 3.9, HCO27, Cr 0.69, CBC unremarkable, lipase 24, INR 1.17, UA c/w infection with culture pending. CT A/P with resolution of L-side hydronephrosis with extensive bilateral nephrolithiasis with 2.6cm calculus in L renal pelvis with evidence of pyelonephritis without renal abscess noted. 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 PTH WNL. Vit D low at 14. - Continue ciprofloxacin for 7d that was initiated in the ED and follow urine culture - She will likely require 24hr urine studies via outpatient urology Nephrolithiasis 07/20/2023 Assessment & Plan (07/20/2023 9:22 PM PHLEBOTOMY PROGRAM COORDINATOR): - Eval/mgt per above Severe pain 07/20/2023 Assessment & Plan (07/21/2023 10:10 AM PHLEBOTOMY PROGRAM COORDINATOR): - L Flank pain in setting of pyelonephritis per above - Tylenol, oxycodone, and dilaudid - cont home pyridium Nausea 07/20/2023 Assessment & Plan (07/20/2023 9:51 PM PHLEBOTOMY PROGRAM COORDINATOR): - Cont zofran Encounters Date Type Department Care Team Description 06/26/2024 3:00 PM PHLEBOTOMY PROGRAM COORDINATOR Telemedicine [facility] ([facility]) - [facility] [address] [facility] [address]th [place] [address] [place] [address] Prince Wolf MD Kidney stone (Primary Dx) 06/18/2024 Orders Only [facility] Surgery [address] [place] [id number] Prince Wolf MD Kidney stone (Primary Dx) 06/15/2024 9:43 AM PHLEBOTOMY PROGRAM COORDINATOR - 06/15/2024 11:59 PM PHLEBOTOMY PROGRAM COORDINATOR Hospital Encounter [facility] Ultrasound [address] [place] [address] Kidney stone Discharge Disposition: Discharge to home or self care 06/15/2024 Orders Only [facility] Physicians [facility] Surgery [address] [place] [phone] Prince Wolf MD Kidney stone (Primary Dx) from Last 3 Months Immunizations Name Administration Dates Next Due Influenza, Quadrivalent, Spl it, Preservative Free, Intramuscular 07/21/2023 Surgical History Surgery Date Site/Laterality Comments CHOLECYSTECTOMY 2016 LITHOTRIPSY 2018 URETERAL STENT PLACEMENT 06/27/2023 Left Medical History Medical History Date Comments Nephrolithiasis History of kidney stones 2018 w/ litho Chipped tooth top 2 front vanessa th missing/chipped Last menstrual period (LMP) > 10 days ago ~08/16/23 Family History Medical History Relation Name Comments Nephrolithiasis Mother Anesthesia problems Neg Hx Relation Name Status Comments Mother Social History Tobacco Use Types Packs/Day Years Used Date Smoking Tobacco: Never Passive Smoke Exposure: Never Smokeless Tobacco: Never Tobacco Cessation:Counseling Given: Not Answered Passive Exposure Comments:never assessed, patient left AUDIT-C Answer Date Recorded Q1: How often do you have a drink containing alcohol? Never 09/27/2023 Q2: How many drinks containi ng alcohol do you have on a typical day when you are drinking? Patient does not drink Q3: How often do you have si x or more drinks on one occasion? Never 09/27/2023 Personal Safety Answer Date Recorded Have you ever been in or are you currently in a harmful physical or emotional relationship or is someone making you feel afraid or unsafe? Denies 09/27/2023 Comments No Sex and Gender Information Value Date Recorded Sex Assigned at Not on file Legal Sex Female 10:09 PM PHLEBOTOMY PROGRAM COORDINATOR Gender Identity Not on file Sexual Orientation Not on file Obstetrics History Last Filed Vital Signs Vital Sign Reading Time Taken Comments Blood Pressure 116/74 09/27/2023 3:35 PM CDT Pulse 65 09/27/2023 3:35 PM CDT Temperature 37 ??C (98.6 ??F) 09/27/2023 3:05 PM CDT Respiratory Rate 16 09/27/2023 3:35 PM CDT Oxygen Saturation 99% 09/27/2023 3:35 PM CDT Inhaled Oxygen Concentration - - Weight 72.6 kg (160 lb) 08/15/2023 5:36 PM PHLEBOTOMY PROGRAM COORDINATOR Height 160 cm (5' 2.99 ) 08/15/2023 5:36 PM PHLEBOTOMY PROGRAM COORDINATOR Body Mass Index 28.35 08/15/2023 5:36 PM PHLEBOTOMY PROGRAM COORDINATOR Plan of Treatment Health Maintenance Due Date Last Done Comments Cervical Cancer Screening 1991 Depression Screening 1991 Hepatitis C Screening 1991 DTaP/Tdap/Td Vaccine (6 - Tdap) 2002 09/29/1995, 01/01/1993, 01/03/1992, Additional history exists Varicella Vaccines (1 of 2 - 13+ 2-dose series) 2004 Regular Well Visit/Exam 18-64 2009 Influenza Vaccine (#1) 2024 07/21/2023, 2014 HPV Vaccines Aged Out No longer eligi ble based on patient's age to complete this topic Pneumococcal vaccine <65 Aged Out No longer eligible based on patient's age to complete this topic Medical Devices Explanted Type Area Mannequin Decorator Device Identifier Shelf Expiration Date Model / Serial / Lot [employer] [id number] 6fr 22cm 145cm Radiopaque Positioner Filiform Flexible Tip - [id number] Implanted:Qty: 1 on 08/15/2023 by Prince Wolf MD at [facility] Explanted:Qty: 1 on 09/27/2023 by Prince Wolf MD at [facility] Stent Left: Ureter [employer] [id number] 06/16/2026 [id number] / / [id number] [employer] [id number] 6fr 22cm 145cm Radiopaque Positioner Filiform Flexible Tip - [id number] Implanted:Qty: 1 on 08/15/2023 by Prince Wolf MD at [facility] Explanted:Qty: 1 on 09/27/2023 by Prince Wolf MD at [facility] Stent Right: Ureter [employer] [id number] 05/20/2026 [id number] / / [id number] Kidney Stent- Implanted:06/13 (Quantity not on file) Explanted:Qty: 1 on 08/15/2023 by Sabino Saleem MD at [facility] Left: Kidney Description:Explanted intact and complete Procedures Procedure Name Priority Date/Time Associated Diagnosis Comments US KIDNEY COMPLETE Schedule Routine, Read Routine (OP Routine) 06/15/2024 10:05 AM PHLEBOTOMY PROGRAM COORDINATOR Kidney stone from Last 3 Months Results * US Kidney Complete (06/15/2024 10:05 AM PHLEBOTOMY PROGRAM COORDINATOR) Anatomical Region Laterality Modality Kidney N/A Ultrasound 06/18/2024 1:45 PM PHLEBOTOMY PROGRAM COORDINATOR Narrative 06/18/2024 1:57 PM PHLEBOTOMY PROGRAM COORDINATOR EXAM DESCRIPTION: US KIDNEY COMPLETE REASON FOR STUDY: monitor nephrolithiasis ?? TECHNIQUE: Ultrasound of the kidneys and urinary bladder was performed with grayscale imaging. COMPARISON: CT dated 08/16/2023 and 07/20/2023. FINDINGS: RIGHT KIDNEY: Right kidney measures 11.95 cm x 4.08 cm x 4.06 cm. ??No hydronephrosis of the right kidney. ??Previous CT demonstrates double-J right ureteral stent. ??This is not definitely identified on this exam. ??Some renal cortical thinning. ?? Marked increased echogenicity of the medullary portions of the right kidney. ?? Small anechoic mass with some posterior acoustic enhancement measuring 1.29 cm at its greatest length. ??No obvious suspicious right renal mass. LEFT KIDNEY: Left kidney measures 11.33 cm x 4.79 cm x 4.72 cm. ??No hydronephrosis of the left kidney. ??Previous CT demonstrates double-J left ureteral stent. ??This is not definitely identified on this exam. ??Some left renal cortical thinning. ?? Marked decreased echogenicity of the medullary portions of the left kidney. ?? No obvious suspicious mass of the left kidney. URINARY BLADDER: Fluid in the urinary bladder noted. ??Bilateral ureteral jets are believed to be present. IMPRESSION: No hydronephrosis of either kidney. Previous CT demonstrates bilateral double-J ureteral stents. ??These are not definitely identified on this exam. Medullary nephrocalcinosis.. Small cyst of the right kidney again noted. THIS IS AN ELECTRONICALLY VERIFIED FINAL REPORT 06/18/2024 1:57 PM - Electronically signed by ??Blaine DELUCA: SANDRINE D: ??06/18/2024 1:57 PM T: ??06/18/2024 1:57 PM Report ID: [id number] Reading Location: ??[id number] Procedure Note Blaine Campos, DO - 06/18/2024 EXAM DESCRIPTION: US KIDNEY COMPLETE REASON FOR STUDY: monitor nephrolithiasis TECHNIQUE: Ultrasound of the kidneys and urinary bladder was performedwith grayscale imaging. COMPARISON: CT dated 08/16/2023 and 07/20/2023. FINDINGS: RIGHT KIDNEY: Right kidney measures 11.95 cm x 4.08 cm x 4.06 cm. No hydronephrosis ofthe right kidney. Previous CT demonstrates double-J right ureteral stent.This is not definitely identified on this exam. Some renal cortical thinning. Marked increased echogenicity of the medullary portions of the rightkidney. Small anechoic mass with some posterior acoustic enhancement measuring1.29 cm at its greatest length. No obvious suspicious right renal mass. LEFT KIDNEY: Left kidney measures 11.33 cm x 4.79 cm x 4.72 cm. No hydronephrosis ofthe left kidney. Previous CT demonstrates double-J left ureteral stent. Thisis not definitely identified on this exam. Some left renal corticalthinning. Marked decreased echogenicity of the medullary portions of the leftkidney. No obvious suspicious mass of the left kidney. URINARY BLADDER: Fluid in the urinary bladder noted. Bilateral ureteral jets are believedto be present. IMPRESSION: No hydronephrosis of either kidney. Previous CT demonstrates bilateral double-J ureteral stents. These arenot definitely identified on this exam. Medullary nephrocalcinosis.. Small cyst of the right kidney again noted. THIS IS AN ELECTRONICALLY VERIFIED FINAL REPORT 06/18/2024 1:57 PM - Electronically signed by Blaine DELUCA: SANDRINE Report ID: [id number] Reading Location: [place] [address] Prince Wolf MD [facility] PROCEDURES Final Result from Last 3 Months Insurance [facility] Advance Directives For more information, please contact: [phone] * Full Code (Latest Code Status on File) Date Activated Date Inactivated Comments 08/15/2023 5:27 PM 08/16/2023 10:26 PM * Full Code Date Activated Date Inactivated Comments 07/20/2023 9:49 PM 07/21/2023 7:24 PM Care Teams Metal Burnisher Relationship Specialty Start Date End Date Faby Conroy MD [facility] [place] [address] PCP - General Family Medicine 07/05/23
--- OUTSIDE RECORDS SUMMARY | 2024-07-05 14:41 | XMS_ITS | Patient Health Summary ---
Author Organization [facility] Address [address] [place] [address] Care Team Providers Care Dials Inspector Name Role Phone Unavailable Primary Care Provider Unavailabl e Note from [facility],non-owned Affiliates and Associated Physician Practices is amultiple site organization consisting of ambulatory clinics and hospital sitesin [place], [place], [place] and [place]. This disclosure is being madepursuant to the Care Everywhere program and may not contain all information available regarding this patient. Last updated 18.[facility] Allergies * Penicillins(Angioedema) -High Criticality Medications * Be aware that medications may not be up to date on this document. Alwaysverify current medications with the patient. * Vit-Fe Fumarate-FA ( VITAMIN) 28-0.8 MG tablet Take 1 tablet by mouth once daily Reasons: * vitamin D, ergocalciferol, (DRISDOL) 1.25 MG (50652 UT) capsule Take 50,000 Units by mouth every 30 days * aspirin (ASPIRIN) 81 MG chew tablet(Started 03/19/2020) Take 2 tablets by mouth once daily Reasons: preeclampsia prevention 11 refills by 03/19/2021 Active Problems Problem Noted Date Diagnosed Date Hx of preeclampsia, prior , currently p regnant 03/19/2020 Supervision of high-risk of hanna vo 03/17/2020 Short interval between pregn ancies affecting , antepartum 03/17/2020 Elevated AFP 03/17/2020 Social History Tobacco Use Types Packs/Day Years [...] Comments Blood Pressure 144/86 07/08/2020 1:52 PM QUEEN PRODUCER Pulse 80 07/08/2020 1:52 PM QUEEN PRODUCER Temperature 36.4 ??C (97.5 ??F) 07/01/2020 1:09 PM CS T Respiratory Rate - - Oxygen Saturation - - Inhaled Oxygen Concentration - - Weight 87 kg (191 lb 12.8 oz) 03/19/2020 10:55 A M CDT Height 160 cm (5' 3 ) 03/19/2020 10:55 AM CDT Body Mass Index 33.98 03/19/2020 10:55 AM CDT Procedures * BIOPHYSICAL PROFILE W NST(Performed 07/08/2020) Performed for Supervision of high-risk of young multigravida (HCC), Short interval between pregnancies affecting , antepartum (HCC), Elevated AFP, Hx of preeclampsia, prior , currently (HCC) * BIOPHYSICAL PROFILE W NST(Performed 07/01/2020) Performed for Supervision of high-risk of young multigravida (HCC), Short interval between pregnancies affecting , antepartum (HCC), Elevated AFP, Hx of preeclampsia, prior , currently (HCC) * BIOPHYSICAL PROFILE W NST(Performed 06/24/2020) Performed for Supervision of high-risk of young multigravida (HCC), Short interval between pregnancies affecting , antepartum (HCC), Elevated AFP, Hx of preeclampsia, prior , currently (HCC) * SONOGRAM - COMPLETE(Performed 06/16/2020) Performed for Supervision of high-risk of young multigravida (HCC), Short interval between pregnancies affecting , antepartum (HCC), Elevated AFP, Hx of preeclampsia, prior , currently (HCC) * SONOGRAM - COMPLETE(Performed 05/16/2020) Performed for Supervision of high-risk of young multigravida (HCC), Short interval between pregnancies affecting , antepartum (HCC), Elevated AFP, Hx of preeclampsia, prior , currently (HCC) * SONOGRAM - COMPLETE(Performed 04/18/2020) Performed for Supervision of high-risk of young multigravida (HCC), Short interval between pregnancies affecting , antepartum (HCC), Elevated AFP, Hx of preeclampsia, prior , currently (HCC) * SONOGRAM - COMPLETE(Performed 03/19/2020) Performed for Supervision of high-risk of young multigravida (HCC), Short interval between pregnancies affecting , antepartum (HCC), Elevated AFP Results * BIOPHYSICAL PROFILE W NST (07/08/2020 1:35 PM QUEEN PRODUCER) Only the most recent of3 resultswithin the time period is included. Anatomical Region Laterality Modality Other 07/08/2020 1:35 PM QUEEN PRODUCER Narrative 07/08/2020 2:10 PM QUEEN PRODUCER ? [facility] Maternal Medicine ? [facility] ?PHONE: ??FAX: Pat. Name: ?ERUM WALLIS No: ?[id number] Study Date: ?? 07/08/2020 ??1:35pm , Age: ? 1990, 30 Pregnancies: ?? 4, Para 3 Height: ? 63 in Weight: ? 189 lb LMP: ?10/09/2019 GA by LMP: ?39w0d GA by Base: ?? 38w1d ?? JACE: 07/21/2020 GA Selected: ??38w1d (From [facility]) JACE: ?07/21/2020 Referring MD: Jah Zarate MD Spray Unit Feeder: ??Ivelisse Andres RDMS CPT4: ? 70258 BMI: ?33.48 Hist/Ind: ? Elevated hCG (4.84 MoM) ?Elevated MSAFP (2.84 MoM) ?Possible accessory placental lobe ?Class I obesity Heart Rate: 124 bpm Amniotic Fluid Index: 16.9cm (07.3-23.7) Q1: 5.4cm ??Q2: 4.7cm ??Q3: 4.7cm ??Q4: 2.1cm ?? Biophysical Profile: 03/22 Breathin ?? Tone: 2 ?? NST: 2 Movement: ??2 ?? AFV: ??2 EVAL, PLACENTA Presentation: cephalic Placenta: anterior Heart Rate: 124 bpm Amniotic Fluid Volume: normal CLINICAL SUMMARY Study Number: 7 ?? The FHR baseline was 115 bpm during today's reactive NST. The FHR variability was moderate and no decelerations were detected. IMPRESSION: ?? 1) Pelaez gestation, 38w1d 2) The amniotic fluid volume is within normal limits 3) Reassuring biophysical profile RECOMMEND: ?? Close maternal movement monitoring while awaiting admission for delivery (scheduled on 07/14 per patient report) Thank you for allowing us the opportunity to care for your patient. Sridevi Barrera MD <Electronic Signature> ??07/08/2020 02:10pm Jah Zarate MD [facility] ORDERABLES * SONOGRAM - COMPLETE (06/16/2020 1:40 PM QUEEN PRODUCER) Only the most recent of4 resultswithin the time period is included. Anatomical Region Laterality Modality Other 06/16/2020 1:40 PM QUEEN PRODUCER Narrative 06/16/2020 4:16 PM QUEEN PRODUCER ? [facility] ? [facility] ?PHONE: ??FAX: Pat. Name: ?ERUM WALLIS No: ?[id number] Study Date: ?? 06/16/2020 ??1:40pm , Age: ? 1990, 30 Pregnancies: ?? 4, Para 3 Height: ? 63 in Weight: ? 189 lb LMP: ?10/09/2019 GA by LMP: ?35w6d GA by Base: ?? 35w0d ?? JACE: 07/21/2020 GA by US: ? 33w6d ?? JACE: 07/29/2020 GA Selected: ??35w0d (From [facility]) JACE: ?07/21/2020 Referring MD: Jah Zarate MD Spray Unit Feeder: ??Clemencia Ramos, RDMS, RDCS CPT4: ? 17050,98896 BMI: ?33.48 Hist/Ind: ? 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 GROWTH EVALUATION Measurement ??GA ? Range ? Srce %for GA Ratios ----- ---- ------- BPD ??8.3 cm 33w2d (35c5k-65r5d) Hadl BPD 9% FL/BPD 0.82 (0.71 - 0.87) HC ??30.3 cm 33w5d (16s8o-60g0s) Hadl HC ??2% FL/AC ??0.22 (0.20 - 0.24) AC ??30.6 cm 34w4d (89t4i-62w0p) Hadl AC ??40% HC/AC ??0.99 (0.93 - 1.12) FL ?? 6.8 cm 34w6d (36b6o-33w9o) Hadl FL ??37% CI ? 0.77 (0.70 - 0.86) HL ?? 5.8 cm 33w4d (62h6e-07l4v) Elliott HL ??27% GA for sonogram 33w6d (90a3d-41k4f) ?? Weight Estimate: based on (BPD,HC,AC,FL) Hadlock ?Weight: 2421 gm (2068-2775gm) Had ? : 5lbs, 5oz ? Normal: 2601 gm (1950- 3252gm) Had ? Wt% ? 30% for 35w0d Heart Rate: 152 bpm Amniotic Fluid Index: 14.1cm (07.9-24.9) Q1: 3.8cm ??Q2: 2.6cm ??Q3: 3.6cm ??Q4: 4.2cm ?? Biophysical Profile: 03/22 Breathin ?? Tone: 2 ?? NST: 2 Movement: ??2 ?? AFV: ??2 EVAL, PLACENTA Presentation: cephalic Placenta: left lateral Heart Rate: 152 bpm Amniotic Fluid Volume: normal CLINICAL SUMMARY Study Number: 4 ??A single fetus is seen in cephalic presentation. ?? The measurements today are consistent with appropriate interval growth. ??The JACE is based on prior ultrasound examination. ?? The amniotic fluid volume is within normal limits. ?? The FHR baseline was 130 bpm during today's reactive NST. ??The FHR variability was moderate. Very discontinuous strip IMPRESSION: Single, live, intrauterine at 35w0d ?? Amniotic fluid volume: within normal limits ?? Biophysical profile: Reassuring ?? size is within normal limits RECOMMEND: Continue weekly testing Repeat growth assessment in 4 weeks ?? Thank you for allowing us the opportunity to care for your patient Cayetano Mcmillan MD <Electronic Signature> ??06/16/2020 04:16pm Jah Zarate MD [facility] ORDERABLES
--- OUTSIDE RECORDS SUMMARY | 2024-07-05 14:41 | XMS_ITS | Clinical Summary ---
Author Organization [facility] Address [address] [address] Care Team Providers Care Music Industry Internship Name Role Phone Unavailable Primary Care Provider Unavailabl e Source Comments [facility],non-owned Affiliates and Associated Physician Practices is amultiple site organization consisting of ambulatory clinics and hospital sitesin [place], [place], [place] and [place]. This disclosure is being madepursuant to the Care Everywhere program and may not contain all information available regarding this patient. Last updated 18.[facility] Allergies Active Allergy Reactions Criticality Noted Date [...] Active vitamin D, ergocalciferol, (DRISDOL) 1.25 MG (83564 UT) capsule Take 50,000 Units by mouth [...] support delivery initiation in the 39th week Family History Medical History Relation Name Comments Hypertension Father Relation Name Status Comments Father Alive Mother Alive Sister 1 Alive Sister 2 Alive Social History Tobacco Use Types Packs/Day Years [...] Comments Blood Pressure 144/86 07/08/2020 1:52 PM WELCOME CENTER AGENT Pulse 80 07/08/2020 1:52 PM WELCOME CENTER AGENT Temperature 36.4 ??C (97.5 ??F) 07/01/2020 1:09 PM CS T Respiratory Rate - - Oxygen Saturation - - Inhaled Oxygen Concentration - - Weight 87 kg (191 lb 12.8 oz) 03/19/2020 10:55 A M CDT Height 160 cm (5' 3 ) 03/19/2020 10:55 AM CDT Body Mass Index 33.98 03/19/2020 10:55 AM CDT Plan of Treatment Health Maintenance Due Date Last Done Comments PAP SMEAR 1990 HIV SCREENING 2006 HEPATITIS C SCREENING 05/07/2009 DTAP/TDAP/TD VACCINES (1 - Tdap) 2010 HEPATITIS B VACCINE (1 of 3 - 19+ 3-dose series) 2010 COVID-19 VACCINE ( - 2023-2 5 season) 2024 INFLUENZA VACCINE (#1) 2024 04/24/2015 DEPRESSION SCREENING 06/13/2024 ZOSTER VACCINE (1 of 2) 2041 HIB VACCINE Aged Out No longer eligi ble based on patient's age to complete this topic HPV VACCINE Aged Out No longer eligi ble based on patient's age to complete this topic MENINGOCOCCAL (Group B) VACCINE Aged Out No longer eligible based on patient's age to complete this topic MENINGOCOCCAL VACCINE Aged Out No george vilma eligible based on patient's age to complete this topic PNEUMOCOCCAL VACCINE Aged Out No long er eligible based on patient's age to complete this topic
--- OUTSIDE RECORDS SUMMARY | 2024-07-05 14:41 | XMS_ITS | Referral Summary ---
Author Organization [facility] Address [address] [place] [address] Care Team Providers Care Clerk Operator Name Role Phone Faby Conroy MD Primary Care Provider [phone] Encounters Date Type Department Care Team Description 06/26/2024 3:00 PM [facility] - [facility] Urology [address]th [place] [address] [place] [address] Prince Wolf MD Kidney stone (Primary Dx) 06/18/2024 Orders Only [facility] [address] [place] [address] Prince Wolf MD Kidney stone (Primary Dx) 06/15/2024 Orders Only [facility] [address] [place] [address] Prince Wolf MD Kidney stone (Primary Dx) 06/15/2024 9:43 AM WEB MARKETING SPECIALIST - 06/15/2024 11:59 PM WEB MARKETING SPECIALIST Hospital Encounter [facility] Ul[facility]ound [address] [place] [address] Kidney stone Discharge Disposition: Discharge to home or self care from Last 3 Months Allergies Active Allergy Reactions Criticality Noted Date [...] 07/20/2023 Assessment & Plan (07/21/2023 10:09 AM WEB MARKETING SPECIALIST): - Patient with history of recurrent nephrolithiasis [...] 07/20/2023 Assessment & Plan (07/20/2023 9:22 PM WEB MARKETING SPECIALIST): - Eval/mgt per above Severe pain 07/20/2023 Assessment & Plan (07/21/2023 10:10 AM WEB MARKETING SPECIALIST): - L Flank pain in setting of pyelonephritis per above - Tylenol, oxycodone, and dilaudid - cont home pyridium Nausea 07/20/2023 Assessment & Plan (07/20/2023 9:51 PM WEB MARKETING SPECIALIST): - Cont zofran Immunizations Name Administration Dates Next Due Influenza, Quadrivalent, Spl it, Preservative Free, Intramuscular 07/21/2023 Social History Tobacco Use Types Packs/Day Years [...] on file Legal Sex Female 10:09 PM WEB MARKETING SPECIALIST Gender Identity Not on file Sexual Orientation Not on file Last Filed Vital Signs Vital Sign Reading Time Taken Comments Blood Pressure 116/74 09/27/2023 3:35 PM CDT Pulse 65 09/27/2023 3:35 PM CDT Temperature 37 ??C (98.6 ??F) 09/27/2023 3:05 PM CDT Respiratory Rate 16 09/27/2023 3:35 PM CDT Oxygen Saturation 99% 09/27/2023 3:35 PM CDT Inhaled Oxygen Concentration - - Weight 72.6 kg (160 lb) 08/15/2023 5:36 PM WEB MARKETING SPECIALIST Height 160 cm (5' 2.99 ) 08/15/2023 5:36 PM WEB MARKETING SPECIALIST Body Mass Index 28.35 08/15/2023 5:36 PM WEB MARKETING SPECIALIST Plan of Treatment Not on file Medical Devices Explanted Type Area Roller Turner Device Identifier Shelf Expiration Date Model / Serial / Lot [employer] [id number] [id number] 22cm 145cm Radiopaque Positioner Filiform Flexible Tip - [id number] Implanted:Qty: 1 on 08/15/2023 by Prince Wolf MD at [facility] Explanted:Qty: 1 on 09/27/2023 by Prince Wolf MD at [facility] Stent Left: Ureter [employer] [id number] 06/16/2026 [id number] / / [id number] [employer] [id number] [id number] 22cm 145cm Radiopaque Positioner Filiform Flexible Tip - [id number] Implanted:Qty: 1 on 08/15/2023 by Prince Wolf MD at [facility] Explanted:Qty: 1 on 09/27/2023 by Prince Wolf MD at [facility] Stent Right: Ureter [employer] [id number] 05/20/2026 [id number] / / [id number] Kidney Stent- Implanted:06/13 (Quantity not on file) Explanted:Qty: 1 on 08/15/2023 by Sabino Saleem MD at [facility] Left: Kidney Description:Explanted intact and complete Procedures Procedure Name Priority Date/Time Associated Diagnosis Comments US KIDNEY COMPLETE Schedule Routine, Read Routine (OP Routine) 06/15/2024 10:05 AM WEB MARKETING SPECIALIST Kidney stone from Last 3 Months Results * US Kidney Complete (06/15/2024 10:05 AM WEB MARKETING SPECIALIST) Anatomical Region Laterality Modality Kidney N/A Ultrasound 06/18/2024 1:45 PM WEB MARKETING SPECIALIST Narrative 06/18/2024 1:57 PM WEB MARKETING SPECIALIST EXAM DESCRIPTION: US KIDNEY COMPLETE REASON FOR [...] 1:57 PM - Electronically signed by ??Blaine Campos M.D. JS: SANDRINE D: ??06/18/2024 1:57 PM T: ??06/18/2024 1:57 PM Report ID: [id number] Reading Location: ??[id number] Procedure Note Blaine Campos, DO - 06/18/2024 [...] 1:57 PM - Electronically signed by Blaine Campos M.D. JS: SANDRINE Report ID: [id number] Reading Location: [place] [address] Prince Wolf MD [facility] PROCEDURES Final Result from Last 3 Months Insurance [facility] Advance Directives For more information, please contact: [phone] * Full Code (Latest Code Status on File) Date Activated Date Inactivated Comments 08/15/2023 5:27 PM 08/16/2023 10:26 PM * Full Code Date Activated Date Inactivated Comments 07/20/2023 9:49 PM 07/21/2023 7:24 PM Care Teams Clerk Operator Relationship Specialty Start Date End Date Faby Conroy MD [address] [place] [address] [place] [address] PCP - General Family Medicine 07/05/23
--- OUTSIDE RECORDS SUMMARY | 2024-07-05 14:41 | XMS_ITS | Continuity of Care Document ---
Author Organization [facility] Address [address] [place] [address] Phone Care Team Providers Care Miniature Model Maker Name Role Phone Unavailable Unavailable Unavailable Advance Directives Directive Yes / No Effective Date File Name No Information Encounters Encounter Description Practice Location Reason(s) For Visit Diagnoses Date Provider Providers Copied on Encounter [facility], [address], [place], [place], [id number], [place] tel:[phone] [facility] No Information No Information Referring Provider: DORIAN Ovalle, [address], [place], [address]. tel:[phone] Family History Family Member Type Diagnosis Age At Onset No Information Payers Payer name Insurance type Covered green party ID Authoriza tion(s) No Information Social History Type Description Quantity Date Captured Comments Sex Female Smoking Status No Information Chief Complaint And Reason For Visit No Information History Of Present Illness Encounter Date Complaint History Of Prese nt Illness No Information Instructions Date Instruction Additional Infor mation No Information Assessments Type Assessment Date No Information
--- OUTSIDE RECORDS SUMMARY | 2024-07-05 14:41 | XMS_ITS | Clinical Summary ---
Author Organization [facility] Address [address] [place] [address] Phone Care Team Providers Care Riding Silks Custodian Name Role Phone Unavailable Primary Care Provider Unavailabl e Allergies Active Allergy Reactions Criticality Noted Date Comments Penicillins Hives,Rash High 06/29/2011 Medications VIT/FE FUMARATE/FA (TIA ORAL) Take 1 Tab by mouth daily. Active ergocalciferol (VITAMIN D) 50,000 unit Oral capsule Take 1 Cap by mouth every 7 days. Active VITAMIN B COMPLEX NO.12-NIACIN ORAL Take 1 Tab by mouth daily. Active ASCORBIC ACID (VITAMIN C ORAL) Take 1 Tab by mouth daily. Active Social History Tobacco Use Types Packs/Day Years Used Date Smoking Tobacco: Never Alcohol Use Standard Drinks/Week Comments No 0 (1 standard drink = 0.6 oz pur e alcohol) Comments Yes Sex and Gender Information Value Date Recorded Sex Assigned at Not on file Legal Sex Female 6:06 AM GREEN BELT Gender Identity Not on file Sexual Orientation Not on file Occupation Industry Job Start Date Job End Date Not on file Not on file Not on file Not on file Plan of Treatment Health Maintenance Due Date Last Done Comments DTAP/TDAP/TD VACCINES (1 - Tdap) 2010 HEPATITIS B VACCINES (1 of 3 - 19+ 3-dose series) 2010 CERVICAL CANCER SCREENING 2021 INFLUENZA VACCINE (#1) 2024 RSV VACCINE (60+ or ) (1 - 1-dose 75+ series) 2066 HPV VACCINES Aged Out No longer eligi ble based on patient's age to complete this topic PNEUMOCOCCAL VACCINE 0-64 YEARS Aged Out No longer eligible based on patient's age to complete this topic
== END 2024-07-02 16:31 | disposition home or self-care (01) ==
PROVIDERS: Emergency Provider Nurse Practitioner Family
DX: H69.91 Unspecified Eustachian tube disorder, right ear (principal)
CPT/HCPCS: 99213; G0463

== ENCOUNTER 2024-07-14 17:19 | Emergency (ER) | payer OTHER, SELFPAY ==
--- OUTSIDE RECORDS SUMMARY | 2024-07-14 17:21 | XMS_ITS | Clinical Summary ---
Author Organization [facility] Address [address] [place] [address] Care Team Providers Care Coil Spring Assembler Name Role Phone Unavailable Primary Care Provider Unavailabl e Source Comments [facility],non-owned Affiliates and Associated Physician Practices is amultiple site organization consisting of ambulatory clinics and hospital sitesin [place], [place], [place] and [place]. This disclosure is being madepursuant to the Care Everywhere program and may not contain all information available regarding this patient. Last updated 18.[facility] Allergies Active Allergy Reactions Criticality Noted Date [...] Active vitamin D, ergocalciferol, (DRISDOL) 1.25 MG (55655 UT) capsule Take 50,000 Units by mouth [...] Comments Blood Pressure 144/86 07/08/2020 1:52 PM CARDIOPULMONARY TECHNICIAN Pulse 80 07/08/2020 1:52 PM CARDIOPULMONARY TECHNICIAN Temperature 36.4 ??C (97.5 ??F) 07/01/2020 1:09 [...]
--- OUTSIDE RECORDS SUMMARY | 2024-07-14 17:21 | XMS_ITS | Clinical Summary ---
Author Organization [facility] Address [address] [place] [address] Care Team Providers Care Cable Lacer Name Role Phone Faby Conroy MD Primary Care Provider +1- [phone] Allergies Active Allergy Reactions Criticality Noted Date [...] 07/20/2023 Assessment & Plan (07/21/2023 10:09 AM SOIL SAMPLER): - Patient with history of recurrent nephrolithiasis [...] 07/20/2023 Assessment & Plan (07/20/2023 9:22 PM SOIL SAMPLER): - Eval/mgt per above Severe pain 07/20/2023 Assessment & Plan (07/21/2023 10:10 AM SOIL SAMPLER): - L Flank pain in setting of pyelonephritis per above - Tylenol, oxycodone, and dilaudid - cont home pyridium Nausea 07/20/2023 Assessment & Plan (07/20/2023 9:51 PM SOIL SAMPLER): - Cont zofran Encounters Date Type Department Care Team Description 06/26/2024 3:00 PM SOIL SAMPLER Telemedicine [facility] ([facility]) - [facility] Urology [address] Advanced Medicine 11th [place] [address] [place] [address] Prince Wolf MD Kidney stone (Primary Dx) 06/18/2024 Orders Only [facility] Surgery [address] [place] [phone] Prince Wolf MD Kidney stone (Primary Dx) 06/15/2024 9:43 AM SOIL SAMPLER - 06/15/2024 11:59 PM SOIL SAMPLER Hospital Encounter [facility] Ultrasound [address] [place] [address] Kidney stone Discharge Disposition: Discharge to home or self care 06/15/2024 Orders Only [facility] Physicians [facility] Surgery [address] [place] [phone] Prince Wolf MD Kidney stone (Primary Dx) [...] on file Legal Sex Female 10:09 PM SOIL SAMPLER Gender Identity Not on file Sexual Orientation [...] 72.6 kg (160 lb) 08/15/2023 5:36 PM SOIL SAMPLER Height 160 cm (5' 2.99 ) 08/15/2023 5:36 PM SOIL SAMPLER Body Mass Index 28.35 08/15/2023 5:36 PM SOIL SAMPLER Plan of Treatment Health Maintenance Due Date [...] this topic Medical Devices Explanted Type Area Irrigation Teacher Device Identifier Shelf Expiration Date Model / Serial / Lot [employer] [id number] 6fr 22cm 145cm Radiopaque Positioner Filiform Flexible Tip - [id number] Implanted:Qty: 1 on 08/15/2023 by Prince Wolf MD at [facility] Explanted:Qty: 1 on 09/27/2023 by Prince Wolf MD at [facility] Stent Left: Ureter [employer] [id number] 06/16/2026 [id number] / / [id number] [employer] [id number] 6fr 22cm 145cm Radiopaque Positioner Filiform Flexible Tip - [id number] Implanted:Qty: 1 on 08/15/2023 by Prince Wolf MD at [facility] Explanted:Qty: 1 on 09/27/2023 by Prince Wolf MD at [facility] Stent Right: Ureter [employer] [id number] 05/20/2026 [id number] / / [id number] Kidney Stent- Implanted:06/13 (Quantity not on file) Explanted:Qty: 1 on 08/15/2023 by Sabino Saleem MD at [facility] Left: Kidney Description:Explanted intact and complete Procedures Procedure Name Priority Date/Time Associated Diagnosis Comments LITHOLINK 24HR URINE PANEL Routine 07/03/2024 10:00 AM SOIL SAMPLER Kidney stone US KIDNEY COMPLETE Schedule Routine, Read Routine (OP Routine) 06/15/2024 10:05 AM SOIL SAMPLER Kidney stone from Last 3 Months Results * (ABNORMAL) Litholink 24Hr Urine Panel (07/03/2024 10:00 AM SOIL SAMPLER) Cystine, Urine, Qualitative Neg Negative [facility] - 01 Urine Volume (Preserved) 720 500 - 4,000 mL/24 hr [facility] - 01 Calcium Oxalate Saturation 3.25(L) 6.00 - 10.00 [facility] - 01 Calcium, Urine 125 <200 mg/24 hr [facility] - 01 Oxalate, Urine 6(L) 20 - 40 mg/24 hr [facility] - 01 Citrate, Urine 176(L) >550 mg/24 hr [facility] - 01 Calcium Phosphate Saturation 1.67 0.50 - 2.00 [facility] - 01 pH, 24 hr, Urine 5.983 5.800 - 6.200 [facility] - 01 Uric Acid Saturation 1.27(H) <1.00 [facility] - 01 Uric Acid, Urine 442 <750 mg/24 hr [facility] - 01 Sodium, Urine 78 50 - 150 mmol/24 hr [facility] - 01 Potassium, Urine 17(L) 20 - 100 mmol/24 hr [facility] - 01 Magnesium, Urine 46 30 - 120 mg/24 hr [facility] - 01 Phosphorus, Urine 474(L) 600 - 1,200 mg/24 hr [facility] - 01 Ammonium, Urine 21 15 - 60 mmol/24 hr [facility] - 01 Chloride, Urine 80 70 - 250 mmol/24 hr [facility] - 01 Sulfate, Urine 18(L) 20 - 80 meq/24 hr [facility] - 01 Urea Nitrogen, Urine 4.57(L) 6.00 - 14.00 g/24 hr [facility] - 01 Protein Catabolic Rate 0.6(L) 0.8 - 1.4 g/kg/24 hr [facility] - 01 Creatinine, Urine 760 Not Applic. mg/24 hr [facility] - 01 Creatinine/Kg Body Weight 10.5 8.7 - 20.3 mg/24 hr/kg [facility] - 01 Calcium/Kg Body Weight 1.7 <4.0 mg/24 hr/kg [facility] - 01 Calcium/Creatin ine Ratio 165 51 - 262 mg/g creat [facility] - 01 Comment Note [facility] - 01 Comment: The date and/or time of collection was not indicated on the collection form as required by state and federal law. ??The date and time of collection were adjusted based on the receipt date of the specimen if not supplied, or based on limited data supplied by patient. Urine 07/03/2024 10:0 0 AM SOIL SAMPLER 07/06/2024 Narrative [facility] - 07/07/2024 1:06 AM SOIL SAMPLER Performed at: ??01 - [facility] [address] ??[id number] Refinery Operator Assistant: Randy Louis PhD, Phone: ??[phone] us Prince Wolf MD LAB URINE ORDERABLES Final Resul t [facility] - 01 * US Kidney Complete (06/15/2024 10:05 AM SOIL SAMPLER) Anatomical Region Laterality Modality Kidney N/A Ultrasound 06/18/2024 1:45 PM SOIL SAMPLER Narrative 06/18/2024 1:57 PM SOIL SAMPLER EXAM DESCRIPTION: US KIDNEY COMPLETE REASON FOR [...] PM T: ??06/18/2024 1:57 PM Report ID: [id number] Reading Location: ??[id number] Procedure Note Blaine Campos, DO - 06/18/2024 [...] Blaine Campos M.D. JS: SANDRINE Report ID: [id number] Reading Location: [place] [address] us Prince Wolf MD [facility] PROCEDURES Final Result from Last 3 Months Insurance IDWV [facility] Advance Directives For more information, please contact: [phone] * Full Code (Latest Code Status on File) Date Activated Date Inactivated Comments 08/15/2023 5:27 PM 08/16/2023 10:26 PM * Full Code Date Activated Date Inactivated Comments 07/20/2023 9:49 PM 07/21/2023 7:24 PM Care Teams Cable Lacer Relationship Specialty Start Date End Date Faby Conroy MD [address] [place] [address] PCP - General Family Medicine 07/05/23
--- OUTSIDE RECORDS SUMMARY | 2024-07-14 17:21 | XMS_ITS | Referral Summary ---
Author Organization [facility] Address [address] [place] [address] Care Team Providers Care Elastic Attacher Overlock Name Role Phone Faby Conroy MD Primary Care Provider +1- [phone] Encounters Date Type Department Care Team Description 06/26/2024 3:00 PM [facility] ([facility]) - [facility] Urology [address] 11th [place] [address] [place] [address] Prince Wolf MD Kidney stone (Primary Dx) 06/18/2024 Orders Only [facility] Surgery [address] [place] [address] Prince Wolf MD Kidney stone (Primary Dx) 06/15/2024 Orders Only [facility] Surgery [address] [place] [address] Prince Wolf MD Kidney stone (Primary Dx) 06/15/2024 9:43 AM BOOKKEEPING MACHINE MECHANIC - 06/15/2024 11:59 PM BOOKKEEPING MACHINE MECHANIC Hospital Encounter [facility] Ultrasound [address] [place] [address] Kidney stone Discharge Disposition: Discharge to home [...] 07/20/2023 Assessment & Plan (07/21/2023 10:09 AM BOOKKEEPING MACHINE MECHANIC): - Patient with history of recurrent nephrolithiasis [...] 07/20/2023 Assessment & Plan (07/20/2023 9:22 PM BOOKKEEPING MACHINE MECHANIC): - Eval/mgt per above Severe pain 07/20/2023 Assessment & Plan (07/21/2023 10:10 AM BOOKKEEPING MACHINE MECHANIC): - L Flank pain in setting of pyelonephritis per above - Tylenol, oxycodone, and dilaudid - cont home pyridium Nausea 07/20/2023 Assessment & Plan (07/20/2023 9:51 PM BOOKKEEPING MACHINE MECHANIC): - Cont zofran Immunizations Name Administration Dates [...] on file Legal Sex Female 10:09 PM BOOKKEEPING MACHINE MECHANIC Gender Identity Not on file Sexual Orientation [...] 72.6 kg (160 lb) 08/15/2023 5:36 PM BOOKKEEPING MACHINE MECHANIC Height 160 cm (5' 2.99 ) 08/15/2023 5:36 PM BOOKKEEPING MACHINE MECHANIC Body Mass Index 28.35 08/15/2023 5:36 PM BOOKKEEPING MACHINE MECHANIC Plan of Treatment Not on file Medical Devices Explanted Type Area Glass Vial Filler Device Identifier Shelf Expiration Date Model / Serial / Lot [employer] [id number] 6fr 22cm 145cm Radiopaque Positioner Filiform Flexible Tip - [id number] Implanted:Qty: 1 on 08/15/2023 by Prince Wolf MD at [facility] Explanted:Qty: 1 on 09/27/2023 by Prince Wolf MD at [facility] Stent Left: Ureter [employer] [id number] 06/16/2026 [id number] / / [id number] [employer] [id number] 6fr 22cm 145cm Radiopaque Positioner Filiform Flexible Tip - [id number] Implanted:Qty: 1 on 08/15/2023 by Prince Wolf MD at [facility] Explanted:Qty: 1 on 09/27/2023 by Prince Wolf MD at [facility] Stent Right: Ureter [employer] [id number] 05/20/2026 [id number] / / [id number] Kidney Stent- Implanted:06/13 (Quantity not on file) Explanted:Qty: 1 on 08/15/2023 by Sabino Saleem MD at [facility] Left: Kidney Description:Explanted intact and complete Procedures Procedure Name Priority Date/Time Associated Diagnosis Comments LITHOLINK 24HR URINE PANEL Routine 07/03/2024 10:00 AM BOOKKEEPING MACHINE MECHANIC Kidney stone KIDNEY COMPLETE Schedule Routine, Read Routine (OP Routine) 06/15/2024 10:05 AM BOOKKEEPING MACHINE MECHANIC Kidney stone from Last 3 Months Results * (ABNORMAL) Litholink 24Hr Urine Panel (07/03/2024 10:00 AM BOOKKEEPING MACHINE MECHANIC) Cystine, Urine, Qualitative Neg Negative [facility] - [...] by patient. Urine 07/03/2024 10:0 0 AM BOOKKEEPING MACHINE MECHANIC 07/06/2024 Narrative [facility] - 07/07/2024 1:06 AM BOOKKEEPING MACHINE MECHANIC Performed at: ??01 - [facility] [place] [address] [place], [place] ??[id number] Tow Truck Driver: Randy Louis PhD, Phone: ??[phone] Prince Wolf MD LAB URINE ORDERABLES Final Resul t [facility] - 01 * US Kidney Complete (06/15/2024 10:05 AM BOOKKEEPING MACHINE MECHANIC) Anatomical Region Laterality Modality Kidney N/A Ultrasound 06/18/2024 1:45 PM BOOKKEEPING MACHINE MECHANIC Narrative 06/18/2024 1:57 PM BOOKKEEPING MACHINE MECHANIC EXAM DESCRIPTION: US KIDNEY COMPLETE REASON FOR [...] PM T: ??06/18/2024 1:57 PM Report ID: [id number] Reading Location: ??[id number] Procedure Note Blaine Campos, DO - 06/18/2024 [...] signed by Blaine DELUCA: SANDRINE Report ID: [id number] Reading Location: [id number] us Prince Wolf MD IMG US PROCEDURES Final Result from Last 3 Months Insurance IDPA [facility] Advance Directives For more information, please contact: [phone] * Full Code (Latest Code Status on File) Date Activated Date Inactivated Comments 08/15/2023 5:27 PM 08/16/2023 10:26 PM * Full Code Date Activated Date Inactivated Comments 07/20/2023 9:49 PM 07/21/2023 7:24 PM Care Teams Elastic Attacher Overlock Relationship Specialty Start Date End Date Faby Conroy MD [address] [place] [address] [place] [address] PCP - General Family Medicine 07/05/23
--- OUTSIDE RECORDS SUMMARY | 2024-07-14 17:21 | XMS_ITS | Referral Summary ---
Author Organization [facility] Address [address] [place] [address] Care Team Providers Care Chimney Supervisor Brick Name Role Phone Unavailable Primary Care Provider Unavailabl e Source Comments [facility],non-owned Affiliates and Associated Physician Practices is amultiple site organization consisting of ambulatory clinics and hospital sitesin [place], [place], [place] and [place]. This disclosure is being madepursuant to the Care Everywhere program and may not contain all information available regarding this patient. Last updated 18.[facility] Allergies Active Allergy Reactions Criticality Noted Date [...] Active vitamin D, ergocalciferol, (DRISDOL) 1.25 MG (20861 UT) capsule Take 50,000 Units by mouth [...] Comments Blood Pressure 144/86 07/08/2020 1:52 PM FRONT DESK COORDINATOR Pulse 80 07/08/2020 1:52 PM FRONT DESK COORDINATOR Temperature 36.4 ??C (97.5 ??F) 07/01/2020 1:09 [...]
--- OUTSIDE RECORDS SUMMARY | 2024-07-14 17:21 | XMS_ITS | Continuity of Care Document ---
Author Organization [facility] Address [address] [place] [address] Phone Care Team Providers Care Dtp Operator Name Role Phone Unavailable Unavailable Unavailable Advance Directives Directive Yes / No Effective Date File Name No Information Encounters Encounter Description Practice Location Reason(s) For Visit Diagnoses Date Provider Providers Copied on Encounter [facility], [address] [facility] [facility], [place], [place], [id number], [place] tel:[phone] [facility] No Information No Information Referring Provider: DORIAN Ovalle, [address], [place], [address]. tel:[phone] Family History Family Member Type Diagnosis Age At Onset No Information Payers Payer name Insurance type Covered libertarian ID Authoriza tion(s) No Information Social History Type Description Quantity Date Captured Comments Sex Female Smoking Status No Information Chief Complaint And Reason For Visit No Information History Of Present Illness Encounter Date Complaint History Of Prese nt Illness No Information Instructions Date Instruction Additional Infor mation No Information Assessments Type Assessment Date No Information
--- OUTSIDE RECORDS SUMMARY | 2024-07-14 17:21 | XMS_ITS | Patient Health Summary ---
Author Organization [facility] Address [address] [facility] [place] [address] Care Team Providers Care Contact Lens Edge Buffer Name Role Phone Unavailable Primary Care Provider Unavailabl e Note from [facility],non-owned Affiliates and Associated Physician Practices is amultiple site organization consisting of ambulatory clinics and hospital sitesin [place], [place], [place] and [place]. This disclosure is being madepursuant to the Care Everywhere program and may not contain all information available regarding this patient. Last updated 18.[facility] Allergies * Penicillins(Angioedema) -High Criticality Medications * Be aware that medications may not be up to date on this document. Alwaysverify current medications with the patient. * Vit-Fe Fumarate-FA ( VITAMIN) 28-0.8 MG tablet Take 1 tablet by mouth once daily Reasons: * vitamin D, ergocalciferol, (DRISDOL) 1.25 MG (53320 UT) capsule Take 50,000 Units by mouth [...] Comments Blood Pressure 144/86 07/08/2020 1:52 PM COOKING APPLIANCE REPAIR TECHNICIAN Pulse 80 07/08/2020 1:52 PM COOKING APPLIANCE REPAIR TECHNICIAN Temperature 36.4 ??C (97.5 ??F) 07/01/2020 [...] BIOPHYSICAL PROFILE W NST (07/08/2020 1:35 PM COOKING APPLIANCE REPAIR TECHNICIAN) Only the most recent of3 resultswithin the time period is included. Anatomical Region Laterality Modality Other 07/08/2020 1:35 PM COOKING APPLIANCE REPAIR TECHNICIAN Narrative 07/08/2020 2:10 PM COOKING APPLIANCE REPAIR TECHNICIAN ? [facility] ? [facility] ?PHONE: ??FAX: Pat. Name: ?ERUM WALLIS No: ?[id number] Study Date: ?? 07/08/2020 ??1:35pm , Age: ? 1990, 30 Pregnancies: ?? 4, Para 3 Height: ? 63 in Weight: ? 189 lb LMP: ?10/09/2019 GA by LMP: ?39w0d GA by Base: ?? 38w1d ?? JACE: 07/21/2020 GA Selected: ??38w1d (From [facility]) JACE: ?07/21/2020 Referring MD: Jah Zarate MD Mechanical Repair Worker: ??Ivelisse Andres RDMS CPT4: ? 04333 BMI: ?33.48 Hist/Ind: ? Elevated hCG (4.84 [...] <Electronic Signature> ??07/08/2020 02:10pm Jah Zarate MD [facility] ORDERABLES * SONOGRAM - COMPLETE (06/16/2020 1:40 PM COOKING APPLIANCE REPAIR TECHNICIAN) Only the most recent of4 resultswithin the time period is included. Anatomical Region Laterality Modality Other 06/16/2020 1:40 PM COOKING APPLIANCE REPAIR TECHNICIAN Narrative 06/16/2020 4:16 PM COOKING APPLIANCE REPAIR TECHNICIAN ? [facility] ?PHONE: ??FAX: Pat. Name: ?ERUM WALLIS No: ?[id number] Study Date: ?? 06/16/2020 ??1:40pm , Age: ? 1990, 30 Pregnancies: ?? 4, Para 3 Height: ? 63 in Weight: ? 189 lb LMP: ?10/09/2019 GA by LMP: ?35w6d GA by Base: ?? 35w0d ?? JACE: 07/21/2020 GA by US: ? 33w6d ?? JACE: 07/29/2020 GA Selected: ??35w0d (From [facility]) JACE: ?07/21/2020 Referring MD: Jah Zarate MD Mechanical Repair Worker: ??Clemencia Ramos, RDMS, RDCS CPT4: ? 93288,25438 BMI: ?33.48 Hist/Ind: ? 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 GROWTH EVALUATION Measurement ??GA ? Range ? Srce %for GA Ratios ----- ---- ------- BPD ??8.3 cm 33w2d (92t4f-93z3l) Hadl BPD 9% FL/BPD 0.82 (0.71 - 0.87) HC ??30.3 cm 33w5d (11t9g-67f7v) Hadl HC ??2% FL/AC ??0.22 (0.20 - 0.24) AC ??30.6 cm 34w4d (94y3w-46n0m) Hadl AC ??40% HC/AC ??0.99 (0.93 - 1.12) FL ?? 6.8 cm 34w6d (19d1z-64y6t) Hadl FL ??37% CI ? 0.77 (0.70 - 0.86) HL ?? 5.8 cm 33w4d (68d7s-18a0y) Elliott HL ??27% GA for sonogram 33w6d (56m8m-71q8e) ?? Weight Estimate: based on (BPD,HC,AC,FL) Hadlock [...] <Electronic Signature> ??06/16/2020 04:16pm Jah Zarate MD [facility] ORDERABLES
--- NOTE | 2024-07-14 17:23 | ED_ITS ---
HPI - General Adult General Chief complaint: Ear Stated complaint: RT Ear Infection Time Seen by Provider: 07/14/24 17:23 Source: patient Mode of arrival: ambulatory Limitations: no limitations History of Present Illness HPI narrative: 34-year-old female patient presents to the [facility] with complaints of right-sided ear pain for the past 2 weeks. Patient states she was seen here about 2 weeks ago was given prednisone for fluid behind the ear but states that she finished the prednisone but the pain is still there. Patient states that she has also started having a sore throat that started about 2 days ago. Denies fevers, body aches or chills that she is aware of. Related Data Allergies Allergy/AdvReac Type Severity Reaction Status Date / Time Penicillins Allergy Mild Hives Verified 07/14/24 18:14 Review of Systems Review of Systems: CONSTITUTIONAL: Denies fever, chills, or sweats. EYES: Denies visual changes, redness, or discharge. ENT: Denies rhinorrhea, congestion, positive sore throat, Positive right- sided otalgia. CARDIOVASCULAR: Denies chest pain, palpitations, or edema. RESPIRATORY: Denies cough or dyspnea. GASTROINTESTINAL: Denies abdominal pain, nausea, vomiting, or diarrhea. GENITOURINARY: Denies dysuria or hematuria. SKIN: Denies rash or itching. MUSCULOSKELETAL: Denies back pain, joint pain, or myalgia. NEUROLOGIC: Denies headache, numbness, or weakness. PSYCHIATRIC: Denies anxiety or depression. [facility] Past Medical History Medical History (Updated 07/14/24 @ 18:41 by ABBEY Ramey) UTI (urinary tract infection) Left renal stone Request for sterilization History of pre-eclampsia Surgical History Surgical History H/O lithotripsy Hx of cholecystectomy Family History Family History Mother Kidney stone FH: cholecystectomy Other No pertinent family history Social History Social History Smoking status: Never smoker Second hand tobacco smoke exposure: No Alcohol intake: never Substance use: never Do You Feel Safe in your Home?: Yes Lack of Transportation: No Lack of Food: Never True Current Housing: I Have Housing Concerned About Future Housing: No Difficulty Paying Gas/Electric Bills: No Difficulty Paying for Meds: No Currently Unemployed: No Education: Don't Know Difficulty w/ Childcare or Family Care: No Gender identity (if verbalized by the patient): Female Spiritual care concerns: No Comments At the time of my signature I agree with nursing past medical history, surgical, social, and family history. There is no relevant family history pertinent to the presenting complaint. Exam Narrative: GENERAL: Well-appearing, well-nourished, and in no acute distress. HEAD: Normocephalic, atraumatic. EYES: PERRLA and EOMI. ENT: Nares clear, no rhinorrhea or epistaxis. Mucous membranes moist. posterior pharynx with no erythema, tonsillar enlargement, exudates or lesions present. Bilateral TMs appear cloudy but no erythema most likely fluid behind the ears. NECK: Supple. No lymphadenopathy CHEST: Clear to auscultation. No respiratory distress. HEART: Regular rate and rhythm. No murmur heard. Normal peripheral pulses. ABDOMEN: Soft, nontender, nondistended, normal active bowel sounds. EXTREMITIES: Normal range of motion. No edema. SKIN: Warm, dry, no rash. NEURO: No focal deficits. Alert and oriented x3. Course Course Level of Care: Express Care Visit Vital Signs Vital signs: Vital Signs Temperature 36.9 C 07/14/24 17:44 Pulse Rate 80 07/14/24 17:44 Respiratory Rate 18 07/14/24 17:44 Blood Pressure 124/81 07/14/24 17:44 Pulse Oximetry 100 07/14/24 17:44 Oxygen Delivery Room Air 07/14/24 17:44 Temperature 36.9 C 07/14/24 17:44 Pulse Rate 80 07/14/24 17:44 Respiratory Rate 18 07/14/24 17:44 Blood Pressure 124/81 07/14/24 17:44 Pulse Oximetry 100 07/14/24 17:44 Oxygen Delivery Room Air 07/14/24 17:44 Vital signs reviewed. Medical Decision Making MDM Narrative Medical decision making narrative: Discussed with patient that her swabs today are negative. Discussed with her that since the prednisone did not help with the ear pain and she continues to have fluid in there I highly recommend that she does 2 sprays of Flonase and each nostril twice a day as well as a daily antihistamine and I will also prescribe her an antibiotic. Patient verbalized understanding denies any other questions or concerns. Differential Diagnosis Differential Diagnosis: Differential diagnosis: Otitis media, otitis externa, perforated TM, infection of the outer ear, foreign body or cerumen impaction, ruptured TM, acute mastoiditis, ligament otitis externa, dehydration, pneumonia, sepsis, dental or intraoral infection, TMJ dysfunction Vital Signs Vital Signs: Vital Signs Temperature 36.9 C 07/14/24 17:44 Pulse Rate 80 07/14/24 17:44 Respiratory Rate 18 07/14/24 17:44 Blood Pressure 124/81 07/14/24 17:44 Pulse Oximetry 100 07/14/24 17:44 Oxygen Delivery Room Air 07/14/24 17:44 Temperature 36.9 C 07/14/24 17:44 Pulse Rate 80 07/14/24 17:44 Respiratory Rate 18 07/14/24 17:44 Blood Pressure 124/81 07/14/24 17:44 Pulse Oximetry 100 07/14/24 17:44 Oxygen Delivery Room Air 07/14/24 17:44 Critical Care Time Critical Care Time Critical Care Time: No Discharge Plan Discharge Clinical Impression: Acute serous otitis media Qualifiers: Laterality: right Recurrence: recurrent Qualified Code(s): H65.04 - Acute serous otitis media, recurrent, right ear Patient Disposition: Home, Self-Care Condition: Stable Instructions: Antibiotic Form, Fluid In The Ear (Serous Otitis Media) (ED) Additional Instructions: An ear infection is also called otitis media. An ear infection may be caused by blocked or swollen eustachian tubes. Eustachian tubes connect the middle ear to the back of the nose and throat. They drain fluid from the middle ear. With an ear infection, fluid builds up and is infected by germs. The germs grow easily in fluid trapped behind the eardrum. DISCHARGE INSTRUCTIONS: Call 911 or have someone call 911 for the following: You have a seizure. Return to the emergency department if: You have a fever and a stiff neck. Contact your healthcare provider if: Your ear pain gets worse or does not go away, even after treatment. The outside of your ear is red or swollen. You are vomiting or have diarrhea. You have fluid coming from your ear. You have questions or concerns about your condition or care. Medicines: Acetaminophen decreases pain and fever. It is available without a doctor's order. Ask how much to take and how often to take it. Follow directions. Read the labels of all other medicines you are using to see if they also contain acetaminophen, or ask your doctor or pharmacist. Acetaminophen can cause liver damage if not taken correctly. Do not use more than 4 grams (4,000 milligrams) total of acetaminophen in one day. NSAIDs , such as ibuprofen, help decrease swelling, pain, and fever. This medicine is available with or without a doctor's order. NSAIDs can cause stomach bleeding or kidney problems in certain people. If you take blood thinner medicine, always ask your healthcare provider if NSAIDs are safe for you. Always read the medicine label and follow directions. Ear drops help treat your ear pain. Antibiotics help treat a bacterial infection that caused your ear infection. Take your medicine as directed. Contact your healthcare provider if you think your medicine is not helping or if you have side effects. Tell him or her if you are allergic to any medicine. Keep a list of the medicines, vitamins, and herbs you take. Include the amounts, and when and why you take them. Bring the list or the pill bottles to follow-up visits. Carry your medicine list with you in case of an emergency. Prevent an ear infection: Wash your hands often. Use soap and water. Wash your hands after you use the bathroom, change a child's diapers, or sneeze. Wash your hands before you prepare or eat food. Handwashing Stay away from people who are ill. Some germs are easily and quickly spread through contact. Patient Language: British Prescriptions: New azithromycin 250 mg tablet See Rx Instructions .ROUTE .COMPLEX Qty: 6 0RF Rx Instructions: For 250 mg dose pack: take 500 mg today (day 1), then 250 mg for 4 days (days 2-5) Follow-up/Referrals: PHYSICIAN,AUDIO TAPE LIBRARIAN [Primary Care Provider] - Time of Disposition: 18:43
--- OUTSIDE RECORDS SUMMARY | 2024-07-14 17:23 | XMS_ITS | Clinical Summary ---
Author Organization [facility] Address [address] [place] [address] Phone Care Team Providers Care County Director Name Role Phone Unavailable Primary Care Provider [...] on file Legal Sex Female 6:06 AM CUSTOMS AGENT Gender Identity Not on file Sexual Orientation [...]
--- OUTSIDE RECORDS SUMMARY | 2024-07-14 17:23 | XMS_ITS | Continuity of Care Document ---
Author Organization [facility] Address [address] [place] [address] Phone Care Team Providers Care Nut Cracker Name Role Phone Unavailable Unavailable Unavailable Advance Directives Directive Yes / No Effective Date File Name No Information Encounters Encounter Description Practice Location Reason(s) For Visit Diagnoses Date Provider Providers Copied on Encounter [facility], [address] [facility], [place], [place], [id number], [place] tel:[phone] [facility] No Information No Information Referring Provider: DORIAN Ovalle, [address], [place], [address]. tel:[phone] Family History Family Member Type Diagnosis Age At Onset No Information Payers Payer name Insurance type Covered republican ID Authoriza tion(s) No Information Social History Type Description Quantity Date Captured Comments Sex Female Smoking Status No Information Chief Complaint And Reason For Visit No Information History Of Present Illness Encounter Date Complaint History Of Prese nt Illness No Information Instructions Date Instruction Additional Infor mation No Information Assessments Type Assessment Date No Information
[2024-07-14 17:44] VITALS: BP 124/81; PULSE 80; RESP 18; TEMP 36.9; O2SAT 100
[2024-07-14 18:44] LABS: EDINFLUASCREEN Negative (Negative); EDINFLUBSCREEN Negative (Negative)
[2024-07-14 18:44] LABS: EDSTREPNEGPOS1 Negative (Negative)
[2024-07-14 18:45] LABS: EDCOVIDSCREEN Negative (Negative)
== END 2024-07-14 18:47 | disposition home or self-care (01) ==
PROVIDERS: Emergency Provider Nurse Practitioner Family
DX: H65.04 Acute serous otitis media, recurrent, right ear (principal); Z20.822 Contact with and (suspected) exposure to COVID-19
CPT/HCPCS: 87081; 87426; 87804; 87880; 99213; G0463

== ENCOUNTER 2024-08-21 15:43 | Emergency (ER) | payer OTHER, SELFPAY ==
--- NOTE | ~2024-08-21 | XR_ITS ---
EXAMINATION: XR wrist LT min 3V DATE: 08/21/2024 16:05 INDICATION: Left wrist injury and pain. TECHNIQUE: 4 views of left wrist were obtained. COMPARISON: None. FINDINGS: Alignment is normal. No fracture. There is a 4 mm nonaggressive lytic lesion in lunate, whi ch may be an enchondroma or intraosseous ganglion. Joint spaces are normal. IMPRESSION: 1. No fracture. Reviewed, dictated and finalized at location B. IMPRESSION: 1. No fracture.
--- NOTE | 2024-08-21 15:47 | ED.UPPEXIN ---
HPI - Extremity Injury (Upper) General Chief Complaint: Extremity Problem,Nontraumatic Stated Complaint: LT Wrist Injury Time Seen by Provider: 08/21/24 15:45 Source: patient Mode of arrival: ambulatory Limitations: no limitations History of Present Illness HPI narrative: Patient is a 34-year-old female who presents with left wrist pain after feeling a pop at work yesterday and now having pain to radial aspect over wrist. Patient states she has similar injury a year ago but did not follow up to get MRI. Reports pain but still able to move wrist in all directions. Denies any bruising or swelling. Has not used ice, Trip wraps or pain medication. Related Data Allergies Allergy/AdvReac Type Severity Reaction Status Date / Time Penicillins Allergy Mild Hives Verified 08/21/24 15:50 Review of Systems Review of Systems: All systems reviewed & are unremarkable except as noted in HPI and below Constitutional: Constitutional: Denies body ache(s), Denies chills, Denies fatigue, Denies fever(s), Denies headache(s), Denies malaise and Denies weakness Eyes: Eyes: Denies blurry vision, Denies irritation and Denies loss of vision ENT: Denies otalgia, Denies headache(s), Denies nasal discharge, Denies sinus pain and Denies sore throat Cardiovascular: Cardiovascular: Denies chest pain, Denies irregular heart rhythm and Denies dyspnea Respiratory: Respiratory: Denies dyspnea Gastrointestinal: Gastrointestinal: Denies abdominal pain, Denies melena, Denies hematochezia, Denies diarrhea, Denies nausea and Denies vomiting Musculoskeletal: Musculoskeletal: Denies back pain, Denies myalgias and Reports arthralgias Integumentary/Breasts: Skin/Breast: Denies pruritus and Denies rash Neurologic: Denies headache(s), Denies loss of vision and Denies weakness Psychiatric: Psychiatric: Reports no additional psychiatric complaints Endocrine: Endocrine: Denies fatigue PMFSH Past Medical History Medical History UTI (urinary tract infection) Left renal stone Request for sterilization History of pre-eclampsia Surgical History Surgical History H/O lithotripsy Hx of cholecystectomy Family History Family History Mother Kidney stone FH: cholecystectomy Other No pertinent family history Social History Social History Smoking status: Never smoker Second hand tobacco smoke exposure: No Alcohol intake: never Substance use: never Do You Feel Safe in your Home?: Yes Lack of Transportation: No Lack of Food: Never True Current Housing: I Have Housing Concerned About Future Housing: No Difficulty Paying Gas/Electric Bills: No Difficulty Paying for Meds: No Currently Unemployed: No Education: Don't Know Difficulty w/ Childcare or Family Care: No Gender identity (if verbalized by the patient): Female Spiritual care concerns: No Comments At time of signature, agree with nursing past medical, surgical, social and family history. There is no relevant family history pertinent to the presenting complaint. Exam Const: General: cooperative, healthy appearing, comfortable, no acute distress and well nourished Nutritional Appearance: well nourished Orientation/consciousness: patient oriented x3 Limitations: no limitations HENMT: Head: normal to inspection, normocephalic and atraumatic Ears: hearing grossly normal bilaterally and external ears normal Face/Nose/Sinus: Normal external nose present, normal facial exam and face symmetric Face and sinus: normal facial exam and face symmetric Mouth: Yes lip normal Eyes: General: appearance normal, both eyes and all related structures Alignment and Position: alignment normal and position normal Periorbital: periorbital findings normal Eyelids: eyelids normal Pupils: Equal, round and reactive pupils present EOM: EOMs intact bilaterally Neck: Neck: normal visual inspection, full ROM and supple Chest: Chest palpation & inspection: normal inspection of the chest Resp: Effort & Inspection: normal respiratory effort and able to speak in complete sentences Auscultation: clear to auscultation bilaterally Cardio: Rate: regular rate Rhythm: regular rhythm Heart sounds: S1 normal heart sound present and S2 normal heart sound present GI: Inspection: normal to inspection Skin: General skin exam: normal color and no rashes or lesions noted Neuro: General: patient oriented x3 and moves all extremities Cranial nerves: Yes Equal, round and reactive pupils present Speech: normal speech Gait exam (Neuro): Normal gait present Extrem: General: normal to inspection, full ROM and no edema Left upper extremity: wrist normal to inspection, tenderness of the distal radius, abnormal ROM pain with active ROM with extension, with flexion, with ABduction and with ADduction and radial pulse present; no swelling and no ecchymosis and hand normal to inspection, normal capillary refill, neuromotor exam normal Details: wrist extension normal, thumb opposition normal, thumb IP flexion normal, thumb ADduction normal and fingers 2-5 ABduction normal, neurosensory exam normal Details: radial nerve sensory function normal, ulnar nerve sensory function normal, median nerve sensory function normal and digital nerve sensory function normal, tendon exam normal Location: of all digits Details: extensor tendon, flexor digitorum profundus and flexor digitorum superficialis, normal ROM of fingers and no swelling; no tenderness and no ecchymosis Psych: Appearance: grossly normal and well kempt Mental Status: mental status grossly normal Speech and movement: Normal speech and movement present Affect: normal affect Attitude: cooperative Thought process: Normal thought process present Course Course Emergency Course: Patient is aware of diagnosis, understands and agrees to treatment plan. Anticipatory guidance given. Patient agrees to follow-up as directed and is aware of reasons to seek care at the emergency department. Portions of this record may have been created with voice recognition software Level of Care: Express Care Visit Vital Signs Vital signs: Reviewed MDM - Extremity Injury (Upper) MDM Narrative Medical decision making narrative: Pt well hydrated appearing, in no respiratory distress, hemodynamically stable. Recommend supportive care. The patient is stable at time of discharge the clinical impression was discussed and the patient was given the opportunity to ask questions, which were addressed as completely as possible given the information available at present. Anticipatory guidance and return to care precautions were discussed and the importance of primary care follow-up was stressed and encouraged. The patient voiced understanding of the plan, indications to return, and the need for follow-up. Exam findings show no acute concerns or changes Patient is appropriate for outpatient treatment and follow-up. Differential Diagnosis Differential diagnosis: Likely sprain and strain of wrist and fracture of wrist Medical Records Attestation: I reviewed the patient's medical records. Imaging Data Radiologist's impression: EXAMINATION: XR wrist LT min 3V DATE: 08/21/2024 16:05 INDICATION: Left wrist injury and pain. TECHNIQUE: 4 views of left wrist were obtained. COMPARISON: None. FINDINGS: Alignment is normal. No fracture. There is a 4 mm nonaggressive lytic lesion in lunate, which may be an enchondroma or intraosseous ganglion. Joint spaces are normal. IMPRESSION: 1. No fracture. Discharge Plan Discharge Clinical Impression: Left wrist sprain Qualifiers: Encounter type: initial encounter Qualified Code(s): S63.502A - Unspecified sprain of left wrist, initial encounter Patient Disposition: Home, Self-Care Condition: Stable Instructions: Wrist Sprain (ED) Additional Instructions: Xray showed no fracture. Minimize activities that aggravate the condition The RICE protocol. Follow the RICE protocol as soon as possible after your injury:. Ice should be immediately applied to keep the swelling down. It can be used for 20 to 30 minutes, three or four times daily. Do not apply ice directly to your skin. Compression dressings, bandages or trip-wraps will immobilize and support your injured wrist. Elevate your Wrist above the level of your heart as often as possible during the first 48 hours. Medication: Nonsteroidal anti-inflammatory drugs (NSAIDs) such as ibuprofen and naproxen can help control pain and swelling. Because they improve function by both reducing swelling and controlling pain, they are a better option for mild sprains than narcotic pain medicines. Please schedule a follow-up visit with your personal physician for further evaluation and treatment within 1week OR If your symptoms persist, change or worsen significantly before you can contact your personal physician then please, without delay, go to the emergency department for further evaluation. If you are having a hard time finding a physician please call our [facility] group liaison at [phone]. Patient Language: Slovak Prescriptions: No Action azithromycin 250 mg tablet See Rx Instructions .ROUTE .COMPLEX Qty: 6 0RF Rx Instructions: For 250 mg dose pack: take 500 mg today (day 1), then 250 mg for 4 days (days 2-5) Follow-up/Referrals: Finesse Torre MD [Physician] - 3 Days (Establish care) Stand Alone Forms: Work/School Release IP Time of Disposition: 16:16
[2024-08-21 15:50] VITALS: BP 119/71; PULSE 81; RESP 16; TEMP 36.3; O2SAT 100
--- OUTSIDE RECORDS SUMMARY | 2024-08-21 17:43 | XMS_ITS | Clinical Summary ---
Author Organization [facility] Address [address] [place] [address] Care Team Providers Care Dry Kiln Burner Name Role Phone Faby Conroy MD Primary Care Provider +1- [phone] Allergies Active Allergy Reactions Criticality Noted Date [...] 07/20/2023 Assessment & Plan (07/21/2023 10:09 AM CORK INSULATION SETTER): - Patient with history of recurrent nephrolithiasis [...] 07/20/2023 Assessment & Plan (07/20/2023 9:22 PM CORK INSULATION SETTER): - Eval/mgt per above Severe pain 07/20/2023 Assessment & Plan (07/21/2023 10:10 AM CORK INSULATION SETTER): - L Flank pain in setting of pyelonephritis per above - Tylenol, oxycodone, and dilaudid - cont home pyridium Nausea 07/20/2023 Assessment & Plan (07/20/2023 9:51 PM CORK INSULATION SETTER): - Cont zofran Encounters Date Type Department Care Team Description 08/21/2024 4:20 PM CDT Telemedicine [facility] Advanced Medicine ([facility]) - [facility] Urology [address] [facility] 11th [place] [address] Prince Wolf MD Kidney stone (Primary Dx) 06/26/2024 3:00 PM CORK INSULATION SETTER Telemedicine [facility] Advanced Medicine ([facility]) - [facility] Urology [address] [facility] 11th [place] [address] [place] [address] Prince Wolf MD Kidney stone (Primary Dx) 06/18/2024 Orders Only [facility] Surgery [address] [place] [address] Prince Wolf MD Kidney stone (Primary Dx) 06/15/2024 9:43 AM CORK INSULATION SETTER - 06/15/2024 11:59 PM CORK INSULATION SETTER Hospital Encounter [facility] Ultrasound [address] [place] [address] Kidney stone Discharge Disposition: Discharge to home or self care 06/15/2024 Orders Only [facility] Surgery [address] [place] [address] Prince Wolf MD Kidney stone (Primary Dx) from Last 3 Months Immunizations Immunization Administration Dates Next Due Influenza, Quadrivalent, Spl [...] have a drink containing alc ohol? Never 09/27/2023 Average Number of Drinks Not on file 024 Frequency of Binge Drinking Not on file 09/11 Personal Safety Answer Date Recorded Have you ever been in or are you currently in a harmful physical or emotional relationship or is someone making you feel afraid or unsafe? Denies 09/27/2023 Comments No Sex and Gender Information Value Date Recorded Sex Assigned at Not on file Legal Sex Female 10:09 PM CORK INSULATION SETTER Gender Identity Not on file Sexual Orientation Not on file Obstetrics History Last Filed Vital Signs Vital Sign Reading Time Taken Comments Blood Pressure 116/74 09/27/2023 3:35 PM CDT Pulse 65 09/27/2023 3:35 PM CDT Temperature 37 C (98.6 F) 09/27/2023 3:05 PM CDT Respiratory Rate 16 09/27/2023 3:35 PM CDT Oxygen Saturation 99% 09/27/2023 3:35 PM CDT Inhaled Oxygen Concentration - - Weight 72.6 kg (160 lb) 08/15/2023 5:36 PM CORK INSULATION SETTER Height 160 cm (5' 2.99 ) 08/15/2023 5:36 PM CORK INSULATION SETTER Body Mass Index 28.35 08/15/2023 5:36 PM CORK INSULATION SETTER Plan of Treatment Health Maintenance Due Date Last Done Comments Cervical Cancer Screening 1991 Depression Screening 1991 Hepatitis C Screening 1991 DTaP/Tdap/Td Vaccine (6 - Tdap) 2002 09/29/1995, 01/01/1993, 01/03/1992, Additional history exists Varicella Vaccines (1 of 2 - 13+ 2-dose series) 2004 Regular Well Visit/Exam 18-64 2009 Influenza Vaccine (#1) 2024 07/21/2023, 2014 Hepatitis B Screening Completed 01/12/1997 , 10/11/1996, 09/11/1996 HPV Vaccines Aged Out No longer eligi ble based on patient's age to complete this topic Pneumococcal vaccine <65 Aged Out No longer eligible based on patient's age to complete this topic Medical Devices Explanted Type Area Section Plotter Operator Device Identifier Shelf Expiration Date Model / Serial / Lot Fidus Writer [id number] 6fr 22cm 145cm Radiopaque Positioner Filiform Flexible Tip - [id number] Implanted:Qty: 1 on 08/15/2023 by Prince Wolf MD at [facility] Explanted:Qty: 1 on 09/27/2023 by Prince Wolf MD at [facility] Stent Left: Ureter [employer] [id number] 06/16/2026 [id number] / / [id number] [employer] [id number] 6fr 22cm 145cm Radiopaque Positioner Filiform Flexible Tip - [id number] Implanted:Qty: 1 on 08/15/2023 by Prince Wolf MD at [facility] Explanted:Qty: 1 on 09/27/2023 by Prince Wolf MD at [facility] Stent Right: Ureter [employer] [id number] 05/20/2026 [id number] / / [id number] Kidney Stent- 4 Implanted:06/13 (Quantity not on file) Explanted:Qty: 1 on 08/15/2023 by Sabino Saleem MD at [facility] Left: Kidney Description:Explanted intact and complete Procedures Procedure Name Priority Date/Time Associated Diagnosis Comments LITHOLINK 24HR URINE PANEL Routine 07/03/2024 10:00 AM CORK INSULATION SETTER Kidney stone US KIDNEY COMPLETE Schedule Routine, Read Routine (OP Routine) 06/15/2024 10:05 AM CORK INSULATION SETTER Kidney stone from Last 3 Months Results * (ABNORMAL) Litholink 24Hr Urine Panel (07/03/2024 10:00 AM CORK INSULATION SETTER) Cystine, Urine, Qualitative Neg Negative [facility] - [...] as required by state and federal law. The date and time of collection were adjusted based on the receipt date of the specimen if not supplied, or based on limited data supplied by patient. Urine 07/03/2024 10:0 0 AM CORK INSULATION SETTER 07/06/2024 Narrative [facility] - 07/07/2024 1:06 AM CORK INSULATION SETTER Performed at: [facility] [address] [id number] Gift Shop Clerk: Randy Louis PhD, Phone: [phone] Prince Wolf MD LAB URINE ORDERABLES Final Resul t [facility] - 01 * US Kidney Complete (06/15/2024 10:05 AM CORK INSULATION SETTER) Anatomical Region Laterality Modality Kidney N/A Ultrasound 06/18/2024 1:45 PM CORK INSULATION SETTER Narrative 06/18/2024 1:57 PM CORK INSULATION SETTER EXAM DESCRIPTION: US KIDNEY COMPLETE REASON FOR STUDY: monitor nephrolithiasis TECHNIQUE: Ultrasound of the kidneys and urinary bladder was performed with grayscale imaging. COMPARISON: CT dated 08/16/2023 and 07/20/2023. FINDINGS: RIGHT KIDNEY: Right kidney measures 11.95 cm x 4.08 cm x 4.06 cm. No hydronephrosis of the right kidney. Previous CT demonstrates double-J right ureteral stent. This is not definitely identified on this exam. Some renal cortical thinning. Marked increased echogenicity of the medullary portions of the right kidney. Small anechoic mass with some posterior acoustic enhancement measuring 1.29 cm at its greatest length. No obvious suspicious right renal mass. LEFT KIDNEY: Left kidney measures 11.33 cm x 4.79 cm x 4.72 cm. No hydronephrosis of the left kidney. Previous CT demonstrates double-J left ureteral stent. This is not definitely identified on this exam. Some left renal cortical thinning. Marked decreased echogenicity of the medullary portions of the left kidney. No obvious suspicious mass of the left kidney. URINARY BLADDER: Fluid in the urinary bladder noted. Bilateral ureteral jets are believed to be present. IMPRESSION: No hydronephrosis of either kidney. Previous CT demonstrates bilateral double-J ureteral stents. These are not definitely identified on this exam. Medullary nephrocalcinosis.. Small cyst of the right kidney again noted. THIS IS AN ELECTRONICALLY VERIFIED FINAL REPORT 06/18/2024 1:57 PM - Electronically signed by Blaine Campos M.D. JS: SANDRINE Report ID: [id number] Reading Location: [place] [address] Procedure Note Blaine Campos, DO - 06/18/2024 [...] Blaine Campos M.D. JS: SANDRINE Report ID: [id number] Reading Location: [id number] us Prince Wolf MD [facility] PROCEDURES Final Result from Last 3 Months Insurance [facility] Advance Directives For more information, please contact: [phone] * Full Code (Latest Code Status on File) Date Activated Date Inactivated Comments 08/15/2023 5:27 PM 08/16/2023 10:26 PM * Full Code Date Activated Date Inactivated Comments 07/20/2023 9:49 PM 07/21/2023 7:24 PM Care Teams Dry Kiln Burner Relationship Specialty Start Date End Date Faby Conroy MD [facility] [place] [address] PCP - General Family Medicine 07/05/23
--- OUTSIDE RECORDS SUMMARY | 2024-08-21 17:43 | XMS_ITS | Clinical Summary ---
Author Organization [facility] Address [address] [place] [address] Care Team Providers Care Production Engineer Track Name Role Phone Unavailable Primary Care Provider Unavailabl e Source Comments [facility],non-owned Affiliates and Associated Physician Practices is amultiple site organization consisting of ambulatory clinics and hospital sitesin [place], [place], [place] and [place]. This disclosure is being madepursuant to the Care Everywhere program and may not contain all information available regarding this patient. Last updated 18.[facility] Allergies Active Allergy Reactions Criticality Noted Date [...] Active vitamin D, ergocalciferol, (DRISDOL) 1.25 MG (18465 UT) capsule Take 50,000 Units by mouth [...] Comments Blood Pressure 144/86 07/08/2020 1:52 PM ASSISTANT GUEST SERVICES MANAGER Pulse 80 07/08/2020 1:52 PM ASSISTANT GUEST SERVICES MANAGER Temperature 36.4 C (97.5 F) 07/01/2020 1:09 PM ASSISTANT GUEST SERVICES MANAGER Respiratory Rate - - Oxygen Saturation - [...] - 19+ 3-dose series) 2010 COVID-19 VACCINE (1 - 2023-2 5 season) 2024 INFLUENZA VACCINE [...]
--- OUTSIDE RECORDS SUMMARY | 2024-08-21 17:43 | XMS_ITS | Patient Health Summary ---
Author Organization [facility] Address [address] [place] [address] Care Team Providers Care Polisher And Sander Name Role Phone Unavailable Primary Care Provider Unavailabl e Note from [facility],non-owned Affiliates and Associated Physician Practices is amultiple site organization consisting of ambulatory clinics and hospital sitesin [place], [place], [place] and [place]. This disclosure is being madepursuant to the Care Everywhere program and may not contain all information available regarding this patient. Last updated 18.[facility] Allergies * Penicillins(Angioedema) -High Criticality Medications * Be aware that medications may not be up to date on this document. Alwaysverify current medications with the patient. * Vit-Fe Fumarate-FA ( VITAMIN) 28-0.8 MG tablet Take 1 tablet by mouth once daily Reasons: * vitamin D, ergocalciferol, (DRISDOL) 1.25 MG (44881 UT) capsule Take 50,000 Units by mouth [...] Comments Blood Pressure 144/86 07/08/2020 1:52 PM TEST CENTER ADMINISTRATOR Pulse 80 07/08/2020 1:52 PM TEST CENTER ADMINISTRATOR Temperature 36.4 C (97.5 F) 07/01/2020 1:09 PM TEST CENTER ADMINISTRATOR Respiratory Rate - - Oxygen Saturation - [...] BIOPHYSICAL PROFILE W NST (07/08/2020 1:35 PM TEST CENTER ADMINISTRATOR) Only the most recent of3 resultswithin the time period is included. Anatomical Region Laterality Modality Other 07/08/2020 1:35 PM TEST CENTER ADMINISTRATOR Narrative 07/08/2020 2:10 PM TEST CENTER ADMINISTRATOR [facility] PHONE: FAX: Pat. Name: ERUM WALLIS Pat. No: [id number] Study Date: 07/08/2020 1:35pm , Age: 11 1990, 30 Pregnancies: 4, Para 3 Height: 63 in Weight: 189 lb LMP: 10/09/2019 GA by LMP: 39w0d GA by Base: 38w1d JACE: 07/21/2020 GA Selected: 38w1d (From [facility]) JACE: 07/21/2020 Referring MD: Jah Zarate MD Small Brake Form Operator: Ivelisse Andres RDMS CPT4: 15534 BMI: 33.48 Hist/Ind: Elevated hCG (4.84 MoM) Elevated MSAFP (2.84 MoM) Possible accessory placental lobe Class I obesity Heart Rate: 124 bpm Amniotic Fluid Index: 16.9cm (07.3-23.7) Q1: 5.4cm Q2: 4.7cm Q3: 4.7cm Q4: 2.1cm Biophysical Profile: 03/22 Breathin Tone: 2 NST: 2 Movement: 2 AFV: 2 EVAL, PLACENTA Presentation: cephalic Placenta: anterior Heart Rate: 124 bpm Amniotic Fluid Volume: normal CLINICAL SUMMARY Study Number: 7 The FHR baseline was 115 bpm during today's reactive NST. The FHR variability was moderate and no decelerations were detected. IMPRESSION: 1) Pelaez gestation, 38w1d 2) The amniotic fluid volume is within normal limits 3) Reassuring biophysical profile RECOMMEND: Close maternal movement monitoring while awaiting admission for delivery (scheduled on 07/14 per patient report) Thank you for allowing us the opportunity to care for your patient. Sridevi Barrera MD <Electronic Signature> 07/08/2020 02:10pm Jah Zarate MD [facility] ORDERABLES * SONOGRAM - COMPLETE (06/16/2020 1:40 PM TEST CENTER ADMINISTRATOR) Only the most recent of4 resultswithin the time period is included. Anatomical Region Laterality Modality Other 06/16/2020 1:40 PM TEST CENTER ADMINISTRATOR Narrative 06/16/2020 4:16 PM TEST CENTER ADMINISTRATOR [facility] PHONE: FAX: Pat. Name: ERUM WALLIS. No: [id number] Study Date: 06/16/2020 1:40pm , Age: 12 1990, 30 Pregnancies: 4, Para 3 Height: 63 in Weight: 189 lb LMP: 10/09/2019 GA by LMP: 35w6d GA by Base: 35w0d JACE: 07/21/2020 GA by US: 33w6d JACE: 07/29/2020 GA Selected: 35w0d (From [facility]) JACE: 07/21/2020 Referring MD: Jah Zarate MD Small Brake Form Operator: Clemencia Ramos, [facility], RDCS CPT4: 22930,84973 BMI: 33.48 Hist/Ind: Elevated hCG (4.84 MoM) Elevated MSAFP (2.84 MoM) Possible accessory placental lobe Class I obesity MEASUREMENTS & AGE GROWTH EVALUATION Measurement GA Range Srce %for GA Ratios ----- ---- ------- BPD 8.3 cm 33w2d (87f5a-36b8s) Hadl BPD 9% FL/BPD 0.82 (0.71 - 0.87) HC 30.3 cm 33w5d (06i8f-59k2t) Hadl HC 2% FL/AC 0.22 (0.20 - 0.24) AC 30.6 cm 34w4d (34a6a-39u0v) Hadl AC 40% HC/AC 0.99 (0.93 - 1.12) FL 6.8 cm 34w6d (53d4q-48k6j) Hadl FL 37% CI 0.77 (0.70 - 0.86) HL 5.8 cm 33w4d (30f4a-23k6u) Elliott HL 27% GA for sonogram 33w6d (75n9s-98c9d) Weight Estimate: based on (BPD,HC,AC,FL) Hadlock Weight: 2421 gm (2068-2775gm) Had : 5lbs, 5oz Normal: 2601 gm (1951-3252gm) Had Wt% 30% for 35w0d Heart Rate: 152 bpm Amniotic Fluid Index: 14.1cm (07.9-24.9) Q1: 3.8cm Q2: 2.6cm Q3: 3.6cm Q4: 4.2cm Biophysical Profile: 03/22 Breathin Tone: 2 NST: 2 Movement: 2 AFV: 2 EVAL, PLACENTA Presentation: cephalic Placenta: left lateral Heart Rate: 152 bpm Amniotic Fluid Volume: normal CLINICAL SUMMARY Study Number: 4 A single fetus is seen in cephalic presentation. The measurements today are consistent with appropriate interval growth. The JACE is based on prior ultrasound examination. The amniotic fluid volume is within normal limits. The FHR baseline was 130 bpm during today's reactive NST. The FHR variability was moderate. Very discontinuous strip IMPRESSION: Single, live, intrauterine at 35w0d Amniotic fluid volume: within normal limits Biophysical profile: Reassuring size is within normal limits RECOMMEND: Continue weekly testing Repeat growth assessment in 4 weeks Thank you for allowing us the opportunity to care for your patient Cayetano Mcmillan MD <Electronic Signature> 06/16/2020 04:16pm Jah Zarate MD [facility] ORDERABLES
--- OUTSIDE RECORDS SUMMARY | 2024-08-21 17:43 | XMS_ITS | Referral Summary ---
Author Organization [facility] Address [address] [place] [address] Care Team Providers Care Tax Specialist Name Role Phone Faby Conroy MD Primary Care Provider +1- [phone] Encounters Date Type Department Care Team Description 08/21/2024 4:20 PM CDT [facility] Advanced [facility]) - [facility] Urology [address] 11th [place] [phone] Prince Wolf MD Kidney stone (Primary Dx) 06/26/2024 3:00 PM MARKETING COMPLIANCE MANAGER [facility]) [facility] Urology [address]th [place] [address] Prince Wolf MD Kidney stone (Primary Dx) 06/18/2024 Orders Only [facility] Surgery [address] [facility] [facility] [address] [place] [address] Prince Wolf MD Kidney stone (Primary Dx) 06/15/2024 Orders Only [facility] Surgery [address] [place] [address] Prince Wolf MD Kidney stone (Primary Dx) 06/15/2024 9:43 AM MARKETING COMPLIANCE MANAGER - 06/15/2024 11:59 PM MARKETING COMPLIANCE MANAGER Hospital Encounter [facility] Ultrasound [address] [place] [address] Kidney stone Discharge Disposition: Discharge to home [...] by mouth once a week 12 capsule 4 Active Additional Information Patient taking differently:50,000 Units [...] 07/20/2023 Assessment & Plan (07/21/2023 10:09 AM MARKETING COMPLIANCE MANAGER): - Patient with history of recurrent nephrolithiasis [...] 07/20/2023 Assessment & Plan (07/20/2023 9:22 PM MARKETING COMPLIANCE MANAGER): - Eval/mgt per above Severe pain 07/20/2023 Assessment & Plan (07/21/2023 10:10 AM MARKETING COMPLIANCE MANAGER): - L Flank pain in setting of pyelonephritis per above - Tylenol, oxycodone, and dilaudid - cont home pyridium Nausea 07/20/2023 Assessment & Plan (07/20/2023 9:51 PM MARKETING COMPLIANCE MANAGER): - Cont zofran Immunizations Immunization Administration Dates Next Due Influenza, [...] on file Legal Sex Female 10:09 PM MARKETING COMPLIANCE MANAGER Gender Identity Not on file Sexual Orientation [...] 72.6 kg (160 lb) 08/15/2023 5:36 PM MARKETING COMPLIANCE MANAGER Height 160 cm (5' 2.99 ) 08/15/2023 5:36 PM MARKETING COMPLIANCE MANAGER Body Mass Index 28.35 08/15/2023 5:36 PM MARKETING COMPLIANCE MANAGER Plan of Treatment Not on file Medical Devices Explanted Type Area Slitter Creaser Slotter Operator Device Identifier Shelf Expiration Date Model / Serial / Lot [employer] [id number] 6fr 22cm 145cm Radiopaque Positioner Filiform Flexible Tip - [id number] Implanted:Qty: 1 on 08/15/2023 by Pricne Wolf MD at [facility] Explanted:Qty: 1 on 09/27/2023 by Prince Wolf MD at [facility] Stent Left: Ureter [employer] [id number] 06/16/2026 [id number] / / [id number] [employer] [id number] 6fr 22cm 145cm Radiopaque Positioner Filiform Flexible Tip - [id number] Implanted:Qty: 1 on 08/15/2023 by Prince Wolf MD at [facility] Explanted:Qty: 1 on 09/27/2023 by Prince Wolf MD at [facility] Stent Right: Ureter [employer] [id number] 05/20/2026 [id number] / / [id number] Kidney Stent- Implanted:06/13 (Quantity not on file) Explanted:Qty: 1 on 08/15/2023 by Sabino Saleem MD at [facility] Left: Kidney Description:Explanted intact and complete Procedures Procedure Name Priority Date/Time Associated Diagnosis Comments LITHOLINK 24HR URINE PANEL Routine 07/03/2024 10:00 AM MARKETING COMPLIANCE MANAGER Kidney stone KIDNEY COMPLETE Schedule Routine, Read Routine (OP Routine) 06/15/2024 10:05 AM MARKETING COMPLIANCE MANAGER Kidney stone from Last 3 Months Results * (ABNORMAL) Litholink 24Hr Urine Panel (07/03/2024 10:00 AM MARKETING COMPLIANCE MANAGER) Cystine, Urine, Qualitative Neg Negative [facility] - [...] by patient. Urine 07/03/2024 10:0 0 AM MARKETING COMPLIANCE MANAGER 07/06/2024 Narrative [facility] - 07/07/2024 1:06 AM MARKETING COMPLIANCE MANAGER Performed at: - [facility] [id number] Curb Setter: Randy Louis PhD, Phone: [phone] us Prince Wolf MD LAB URINE ORDERABLES Final Resul t [facility] - 01 * US Kidney Complete (06/15/2024 10:05 AM MARKETING COMPLIANCE MANAGER) Anatomical Region Laterality Modality Kidney N/A Ultrasound 06/18/2024 1:45 PM MARKETING COMPLIANCE MANAGER Narrative 06/18/2024 1:57 PM MARKETING COMPLIANCE MANAGER EXAM DESCRIPTION: US KIDNEY COMPLETE REASON FOR [...] signed by Blaine DELUCA: SANDRINE Report ID: [id number] Reading Location: [id number] Procedure Note Blaine Campos, DO - 06/18/2024 [...] signed by Blaine DELUCA: SANDRINE Report ID: [id number] Reading Location: [place] [address] Prince Wolf MD [facility] US PROCEDURES Final Result from Last 3 Months Insurance [facility] Advance Directives For more information, please contact: [phone] * Full Code (Latest Code Status on File) Date Activated Date Inactivated Comments 08/15/2023 5:27 PM 08/16/2023 10:26 PM * Full Code Date Activated Date Inactivated Comments 07/20/2023 9:49 PM 07/21/2023 7:24 PM Care Teams Tax Specialist Relationship Specialty Start Date End Date Faby Conroy MD [facility] [place] [address] PCP - General Family Medicine 07/05/23
--- OUTSIDE RECORDS SUMMARY | 2024-08-21 17:43 | XMS_ITS | Encounter Summary ---
Author Organization [facility] Address [address] [place] [address] Phone Care Team Providers Care Medicine Assistant Name Role Phone Faby Conroy MD Primary Care Provider [phone] Reason for Referral * Diagnostic Imaging (Routine) - Authorized Specialty Diagnoses / Procedures Referred By Contac t Referred To Contact Diagnoses Kidney stone Procedures US Kidney Complete Prince Wolf MD [address] [address] Phone: tel: fax: [address] [address] Referral ID Status Reason Start Date Expiration Date V isits Requested Visits Authorized [id number] Authorized 08/21/2024 09/20/2025 1 1 Encounter Details Date Type Department Care Team (Late st Contact Info) Description 08/21/2024 4:20 PM CDT Telemedicine [place] [facility] ([facility]) - [facility] Urology [address] [place] [address] Advanced Medicine 11th [place] [address] [place] [id number] Prince Wolf MD [address] [facility] [address] [place], [place] [id number] Kidney stone (Primary Dx) Social History Tobacco Use Types Packs/Day Years Used Date Smoking Tobacco: Never Passive Smoke Exposure: Never Smokeless Tobacco: Never Passive Exposure Comments:ne javi assessed, patient left AUDIT-C Answer Date Recorded [...] on file Legal Sex Female 10:09 PM CANDY BUTCHER Gender Identity Not on file Sexual Orientation Not on file documented as of this encounter Progress Notes * Prince Wolf MD - 08/21/2024 4:20 PM CDT Images from the original note were not included. This was a telemedicine visit with Erum Wallis alone which took place via Telephone No Internet/Computer. During the visit, I was located in the office and the patient was located in the [facility]. The patient visit started at 1634 and ended at 1640. My total encounter time on 08/21/2024 was 15 minutes which was spent in the activities documented in the note. This includes time spent prior to the visit and after the visit in direct care of the patient. This time does not include time spent inany separately reportable services. The patient: has been informed that the visit may not be secure and acknowledged the information. After being given an opportunity to ask questions about and discuss this type of visit, they verballyconsented to proceeding with the telephone/video visit and understand that this service replaces anoffice visit. Chief complaint: nephrolithiasis History of present illness: Erum Wallis is a 34 y.o. female - h/o medullary nephrocalcinosis and large L renal stones - US 12/30/2023: bilateral increased medullary echogenicity. No hydronephrosis. - h/o recurrent UTI every 2-3 months for last 1-2 year - h/o stones, past URS in 2016 - reports complete urine collection Procedures 06/27/2023 L stent placement 08/15/2023 L PCNL 09/27/2023 Bilateral URS, stone extraction Stone analysis 08/15/2023 70% CaPhos, 30% struvite Urine culture 07/20/2023 > 100k E coli 08/12/2023 Mixed 09/27/2023 kidney culture: 10-100k Erika krusei Lab Results Component Value Date GLUCOSE 131 08/16/2023 CALCIUM 8.9 08/15/2023 SODIUM 139 08/15/2023 POTASSIUM 4.0 08/15/2023 CO2 23 08/15/2023 CHLORIDE 105 08/15/2023 BUNSER 13 08/15/2023 CREATININE 0.67 08/15/2023 Lab Results Component Value Date PTH 58 07/21/2023 CALCIUM 8.9 08/15/2023 I have independently reviewed all labs, radiologic tests, and diagnostic tests documented in this note. Assessment and plan: Erum Wallis is a 34 y.o. female with h/o nephrolithiasis - 24 hr UA showed severely low urine volume, severe hypocitraturia - advised to significantly increase fluid intake, citrate intake with lemon juice concentrate 4-8 oz daily. - discussed past imaging showing nephrocalcinosis and risk of stone recurrence. - Follow up in 6 mo telemed with 24 hr UA, renal US documented in this encounter Plan of Treatment Scheduled Orders Name Type Priority Associated Diagnoses Orde r Schedule Litholink 24Hr Urine Panel Lab Routine Kidney stone Expected: 02/21/2025, Expires: 08/21/2025 US Kidney Complete Imaging Schedule Rout ine, Read Routine (OP Routine) Kidney stone Expected: 02/21/2025, Expires: 08/21/2025 documented as of this encounter Visit Diagnoses Diagnosis Kidney stone- Primary Calculus of kidney documented in this encounter Care Teams Medicine Assistant Relationship Specialty Start Date End Date Faby Conroy MD [address] [place] [address] [place] [address] PCP - General Family Medicine 07/05/23 documented as of this encounter
--- OUTSIDE RECORDS SUMMARY | 2024-08-21 17:43 | XMS_ITS | Referral Summary ---
Author Organization [facility] [address] Address [address] [facility] [place] [address] Care Team Providers Care Cavalry Officer Name Role Phone Unavailable Primary Care Provider Unavailabl e Source Comments [facility],non-owned Affiliates and Associated Physician Practices is amultiple site organization consisting of ambulatory clinics and hospital sitesin [place], [place], [place] and [place]. This disclosure is being madepursuant to the Care Everywhere program and may not contain all information available regarding this patient. Last updated 18.[facility] [address] Allergies Active Allergy Reactions Criticality Noted Date [...] Active vitamin D, ergocalciferol, (DRISDOL) 1.25 MG (69370 UT) capsule Take 50,000 Units by mouth [...] Comments Blood Pressure 144/86 07/08/2020 1:52 PM CARGO AND CONTAINER INSPECTOR Pulse 80 07/08/2020 1:52 PM CARGO AND CONTAINER INSPECTOR Temperature 36.4 C (97.5 F) 07/01/2020 1:09 PM CARGO AND CONTAINER INSPECTOR Respiratory Rate - - Oxygen Saturation - - Inhaled Oxygen Concentration - - Weight 87 kg (191 lb 12.8 oz) 03/19/2020 10:55 A M CDT Height 160 cm (5' 3 ) 03/19/2020 10:55 AM CDT Body Mass Index 33.98 03/19/2020 10:55 AM CDT Plan of Treatment Not on file
--- OUTSIDE RECORDS SUMMARY | 2024-08-21 17:43 | XMS_ITS | Clinical Summary ---
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
== END 2024-08-21 16:18 | disposition home or self-care (01) ==
PROVIDERS: Emergency Provider Nurse Practitioner Family
DX: S63.502A Unspecified sprain of left wrist, initial encounter (principal); X58.XXXA Exposure to other specified factors, initial encounter; Y99.0 Civilian activity done for income or pay
CPT/HCPCS: 73110; 99213; G0463

== ENCOUNTER 2025-02-20 15:22 | Emergency (ER) | payer OTHER, SELFPAY ==
--- NOTE | ~2025-02-20 | CT_ITS ---
EXAMINATION: CT abdomen pelvis w con DATE: 02/20/2025 17:26 INDICATION: Lower abdominal pain. Nausea. TECHNIQUE: Computed tomography (CT) of the abdomen and pelvis was performed with intravenous contrast. The dose-length product was 238.16 mGy-cm. COMPARISON: 06/26/2023. FINDINGS: Lung bases unremarkable. No significant pleural or pericardial effusion. Status post cholecystectomy. The liver, spleen, pancreas, adrenal glands are unremarkable. There are nonobstructing bilateral renal stones. Nonobstructive bowel gas pattern. Uterus is mildly prominent with changes consis tent with prior section. No free air or free fluid. IMPRESSION: 1. Nonobstructing bilateral nephrolithiasis. 2: No acute abdominal abnormality. Reviewed, dictated and finalized at location O.
[2025-02-20 15:24] VITALS: BP 125/75; PULSE 92; RESP 16; TEMP 37.1; O2SAT 100
--- NOTE | 2025-02-20 15:41 | ED.FEMALEGU ---
HPI - Female Genitourinary General Chief complaint: Urogenital-Female <Marco Rajput APRN - Last Filed: 02/20/25 15:42> Stated complaint: FLANK/ABD PAIN <Marco Rajput APRN - Last Filed: 02/20/25 15:42> Time Seen by Provider: 02/20/25 17:11 <Marco Rajput APRN - Last Filed: 02/20/25 15:42> 34-year-old female presents to the ER complaining of lower abdominal pain for the last 2 months. Patient also reports dysuria, frequency, hesitancy. Patient says the symptoms have waxed and waned however today the got a lot worse. Patient reports some nausea and diarrhea. Patient denies any vomiting. Patient denies any fevers, body aches, chills, chest pain, shortness of breath, cough, congestion, or any other symptoms.Focused HPI: GENERAL: Well-appearing, well-nourished, and in no acute distress. HEAD: Normocephalic, atraumatic. CHEST: Clear to auscultation. ?No respiratory distress. HEART: Regular rate and rhythm.? NEURO: ?Alert and oriented x3. GI: Abdomen flat, soft, nondistended. Abdomen tender to palpate to lower quadrants. Bowel sounds are active. No guarding or rigidity. No rebound tenderness. Patient screened in triage and initial orders placed.? ?Additional care and disposition to be based upon?diagnostic testing and treatment. <Marco Rajput APRN - Last Filed: 02/20/25 15:42> Focused HPI: 34-year-old female presents to the ER complaining of lower abdominal pain for the last 2 months. Patient also reports dysuria, frequency, hesitancy. Patient says the symptoms have waxed and waned however today the got a lot worse. Patient reports some nausea and diarrhea. Patient denies any vomiting. Patient denies any fevers, body aches, chills, chest pain, shortness of breath, cough, congestion, or any other symptoms. GENERAL: Well-appearing, well-nourished, and in no acute distress. HEAD: Normocephalic, atraumatic. CHEST: Clear to auscultation. ?No respiratory distress. HEART: Regular rate and rhythm.? NEURO: ?Alert and oriented x3. GI: Abdomen flat, soft, nondistended. Abdomen tender to palpate to lower quadrants. Bowel sounds are active. No guarding or rigidity. No rebound tenderness. Patient screened in triage and initial orders placed.? ?Additional care and disposition to be based upon?diagnostic testing and treatment. <Cecelia Reynolds PA-C - Last Filed: 02/20/25 18:04> Related Data Allergies/Adverse reactions: Allergies Allergy/AdvReac Type Severity Reaction Status Date / Time Penicillins Allergy Mild Hives Verified 02/20/25 15:22 <Marco Rajput APRN - Last Filed: 02/20/25 15:42> Review of Systems Review of Systems: All systems reviewed & are unremarkable except as noted in HPI and below <Cecelia Reynolds PA-C - Last Filed: 02/20/25 18:04> [facility] Past Medical History Medical History: Medical History UTI (urinary tract infection) Left renal stone Request for sterilization History of pre-eclampsia <Marco Rajput APRN - Last Filed: 02/20/25 15:42> Surgical History Surgical History: Surgical History H/O lithotripsy Hx of cholecystectomy <Marco Rajput APRN - Last Filed: 02/20/25 15:42> Family History Family History: Family History Mother Kidney stone FH: cholecystectomy Other No pertinent family history <Marco Rajput APRN - Last Filed: 02/20/25 15:42> Social History Social History: Social History Smoking status: Never smoker Second hand tobacco smoke exposure: No Alcohol intake: never Substance use: never Do You Feel Safe in your Home?: Yes Lack of Transportation: No Lack of Food: Never True Current Housing: I Have Housing Concerned About Future Housing: No Difficulty Paying Gas/Electric Bills: No Difficulty Paying for Meds: No Currently Unemployed: No Education: Don't Know Difficulty w/ Childcare or Family Care: No Gender identity (if verbalized by the patient): Female Spiritual care concerns: No <Marco Rajput APRN - Last Filed: 02/20/25 15:42> Exam Narrative: GENERAL: Well-appearing, well-nourished, and in no acute distress. HEAD: Normocephalic, atraumatic. EYES: EOMI. CHEST: Clear to auscultation. No respiratory distress. No wheezes rales or rhonchi HEART: Regular rate and rhythm. No murmur heard. Normal peripheral pulses. ABDOMEN: Soft, nontender, nondistended, normal active bowel sounds. EXTREMITIES: Normal range of motion. No edema. SKIN: Warm, dry, no rash. NEURO: No focal deficits. Alert and oriented x3. PSYCH: Normal mood and affect <Cecelia Reynolds PA-C - Last Filed: 02/20/25 18:04> Course Course Emergency Course: patient updated on her workup and agrees with plan of care <Cecelia Reynolds PA-C - Last Filed: 02/20/25 18:04> Vital Signs Vital signs: Vital Signs Temperature 98.8 F 02/20/25 15:24 Pulse Rate 92 02/20/25 15:24 Respiratory Rate 16 02/20/25 15:24 Blood Pressure 125/75 02/20/25 15:24 Pulse Oximetry 100 02/20/25 15:24 Oxygen Delivery Room Air 02/20/25 15:24 Temperature 98.6 F 02/20/25 16:52 Pulse Rate 88 02/20/25 16:52 Respiratory Rate 16 02/20/25 16:52 Blood Pressure 124/82 02/20/25 16:52 Pulse Oximetry 98 02/20/25 16:52 Oxygen Delivery Room Air 02/20/25 15:24 <Marco Rajput APRN - Last Filed: 02/20/25 15:42> Vital Signs Temperature 98.8 F 02/20/25 15:24 Pulse Rate 92 02/20/25 15:24 Respiratory Rate 16 02/20/25 15:24 Blood Pressure 125/75 02/20/25 15:24 Pulse Oximetry 100 02/20/25 15:24 Oxygen Delivery Room Air 02/20/25 15:24 Temperature 98.6 F 02/20/25 16:52 Pulse Rate 88 02/20/25 16:52 Respiratory Rate 16 02/20/25 16:52 Blood Pressure 124/82 02/20/25 16:52 Pulse Oximetry 98 02/20/25 16:52 Oxygen Delivery Room Air 02/20/25 15:24 <Cecelia Reynolds PA-C - Last Filed: 02/20/25 18:04> MDM - Female Genitourinary MDM Narrative Medical decision making narrative: patient presents the emergency department for abdominal pain, dysuria. She is afebrile and nontoxic appearing. Her vitals are stable. Cbc without leukocytosis. Kidney function is normal. Urine with evidence of infection. This was sent for culture. CT abdomen pelvis showing nonobstructing nephrolithiasis. Patient given 1st dose of antibiotics IV ER. Will be discharged on oral antibiotics. Instructed to have follow-up with her PCP. She was given warnings to return to the ER <Cecelia Reynolds PA-C - Last Filed: 02/20/25 18:04> Differential Diagnosis Differential diagnosis: Likely urinary tract infection and other ( kidney stone) <Cecelia Reynolds PA-C - Last Filed: 02/20/25 18:04> Lab Data Attestation: I reviewed the patient's lab results. <Cecelia Reynolds PA-C - Last Filed: 02/20/25 18:04> Result diagrams: 02/20/25 15:50 02/20/25 15:50 <Marco Rajput APRN - Last Filed: 02/20/25 15:42> Labs: Lab Results 02/20/25 02/20/25 02/20/25 Range/Units 15:38 15:50 16:52 WBC 4.6 (4.5-10.0) K/mm3 RBC 3.58 L (4.2-5.4) M/mm3 Hgb 10.7 L (12.0-15.0) g/dL Hct 33.1 L (37.0-47.0) % MCV 92.5 (80-100) fl MCH 29.9 (26-34) pg MCHC 32.3 (32-36) g/dl RDW 13.2 (11.5-14.5) % Plt Count 209 (150-375) k/mm3 MPV 10.1 (7.4-10.4) fl Immature Gran % (Auto) 0.4 (0-0.5) % Neut % (Auto) 66.3 (45.5-73.1) % Lymph % (Auto) 25.2 (18.3-44.2) % Whitfield % (Auto) 6.0 (2.6-8.5) % Eos % (Auto) 1.5 (0-4.4) % Baso % (Auto) 0.6 (0.2-1.2) % Lymph # (Auto) 1.17 (0.9-3.2) K/mm3 Whitfield # (Auto) 0.3 (0.1-0.6) K/mm3 Eos # (Auto) 0.1 (0-0.3) K/mm3 Baso # (Auto) 0.0 (0.0-0.1) K/mm3 Abs Immat Gran (auto) 0.02 (0.00-0.031) K/mm3 Absolute Neuts (auto) 3.1 (1.3-6.7) K/mm3 Absolute Nucleated RBC 0.000 (0.0-0.012) K/mm3 Nucleated RBC % 0.0 (0.0-0.2) % Sodium 138 (137-145) mmol/L Potassium 4.3 (3.4-5.0) mmol/L Chloride 107 (98-107) mmol/L Carbon Dioxide 25 (22-30) mmol/L Anion Gap 6 (4-12) mmol/L BUN 15 (7-17) mg/dL Creatinine 0.79 (0.7-1.0) mg/dL Estim Creat Clear Calc 73 ml/min Estimated GFR > 60 (59 - ) Glucose 96 (65-110) mg/dL Calcium 8.7 (8.4-10.2) mg/dL Total Bilirubin 0.4 (0.2-1.3) mg/dL AST 20 (14-36) U/L ALT 16 (6-35) U/L Alkaline Phosphatase 67 (38-126) U/L Total Protein 6.9 (6.3-8.2) g/dL Albumin 4.0 (3.5-5.1) g/dL Lipase 257 (23-300) U/L Urine Color Yellow (Yellow) Urine Appearance Cloudy H (Clear) Urine pH 6.0 (5.0-9.0) Ur Specific [place] 1.021 (1.001-1.035) Urine Protein 1+ H (Negative) mg/dL Urine Glucose (UA) Negative (Negative) mg/dL Urine Ketones Negative (Negative) mg/dL Ur Blood (Man) 3+ H (Negative) Urine Nitrate Negative (Negative) Urine Bilirubin Negative (Negative) Urine Urobilinogen 1.0 (<2.0) mg/dL Add Ur Microanalysis Reviewed Leukocyte Esterase Rfl 2+ H (Negative) ZACH/UL Urine RBC >100 H (0-2) /hpf Urine WBC 21-50 H (0-3) /hpf Ur Squamous Epith Cells Few (Few) /hpf Urine Bacteria 2+ H /hpf Urine Casts 0-2 POC Urine HCG, Qual Negative (Negative) Urine Test Negative <Marco Rajput, SENIOR PHP WEB DEVELOPER - Last Filed: 02/20/25 15:42> Lab Results 02/20/25 02/20/25 02/20/25 Range/Units 15:38 15:50 16:52 WBC 4.6 (4.5-10.0) K/mm3 RBC 3.58 L (4.2-5.4) M/mm3 Hgb 10.7 L (12.0-15.0) g/dL Hct 33.1 L (37.0-47.0) % MCV 92.5 (80-100) fl MCH 29.9 (26-34) pg MCHC 32.3 (32-36) g/dl RDW 13.2 (11.5-14.5) % Plt Count 209 (150-375) k/mm3 MPV 10.1 (7.4-10.4) fl Immature Gran % (Auto) 0.4 (0-0.5) % Neut % (Auto) 66.3 (45.5-73.1) % Lymph % (Auto) 25.2 (18.3-44.2) % Whitfield % (Auto) 6.0 (2.6-8.5) % Eos % (Auto) 1.5 (0-4.4) % Baso % (Auto) 0.6 (0.2-1.2) % Lymph # (Auto) 1.17 (0.9-3.2) K/mm3 Whitfield # (Auto) 0.3 (0.1-0.6) K/mm3 Eos # (Auto) 0.1 (0-0.3) K/mm3 Baso # (Auto) 0.0 (0.0-0.1) K/mm3 Abs Immat Gran (auto) 0.02 (0.00-0.031) K/mm3 Absolute Neuts (auto) 3.1 (1.3-6.7) K/mm3 Absolute Nucleated RBC 0.000 (0.0-0.012) K/mm3 Nucleated RBC % 0.0 (0.0-0.2) % Sodium 138 (137-145) mmol/L Potassium 4.3 (3.4-5.0) mmol/L Chloride 107 (98-107) mmol/L Carbon Dioxide 25 (22-30) mmol/L Anion Gap 6 (4-12) mmol/L BUN 15 (7-17) mg/dL Creatinine 0.79 (0.7-1.0) mg/dL Estim Creat Clear Calc 73 ml/min Estimated GFR > 60 (59 - ) Glucose 96 (65-110) mg/dL Calcium 8.7 (8.4-10.2) mg/dL Total Bilirubin 0.4 (0.2-1.3) mg/dL AST 20 (14-36) U/L ALT 16 (6-35) U/L Alkaline Phosphatase 67 (38-126) U/L Total Protein 6.9 (6.3-8.2) g/dL Albumin 4.0 (3.5-5.1) g/dL Lipase 257 (23-300) U/L Urine Color Yellow (Yellow) Urine Appearance Cloudy H (Clear) Urine pH 6.0 (5.0-9.0) Ur Specific [place] 1.021 (1.001-1.035) Urine Protein 1+ H (Negative) mg/dL Urine Glucose (UA) Negative (Negative) mg/dL Urine Ketones Negative (Negative) mg/dL Ur Blood (Man) 3+ H (Negative) Urine Nitrate Negative (Negative) Urine Bilirubin Negative (Negative) Urine Urobilinogen 1.0 (<2.0) mg/dL Add Ur Microanalysis Reviewed Leukocyte Esterase Rfl 2+ H (Negative) ZACH/UL Urine RBC >100 H (0-2) /hpf Urine WBC 21-50 H (0-3) /hpf Ur Squamous Epith Cells Few (Few) /hpf Urine Bacteria 2+ H /hpf Urine Casts 0-2 POC Urine HCG, Qual Negative (Negative) Urine Test Negative <Cecelia Reynolds PA-C - Last Filed: 02/20/25 18:04> Imaging Data Radiologist's impression: ITS Impressions Abdomen/Pelvis CT 02/20/25 17:37 IMPRESSION: 1. Nonobstructing bilateral nephrolithiasis. 2: No acute abdominal abnormality. <Cecelia Reynolds PA-C - Last Filed: 02/20/25 18:04> Critical Care Time Critical Care Time Critical Care Time: No <Cecelia Reynolds PA-C - Last Filed: 02/20/25 18:04> Discharge Plan Discharge Clinical Impression: Acute UTI <Marco Rajput APRN - Last Filed: 02/20/25 15:42> Patient Disposition: Home <Marco Rajput APRN - Last Filed: 02/20/25 15:42> Condition: Stable <Marco Rajput APRN - Last Filed: 02/20/25 15:42> Instructions: Antibiotic Form, Urinary Tract Infection in Women (ED) <Marco Rajput APRN - Last Filed: 02/20/25 15:42> Additional Instructions: Return to the ER if you experience fever, abdominal pain with nausea and vomiting, you are unable to keep down liquids or solids, or any other symptoms that are concerning to you Remain well hydrated. Take oral antibiotic as prescribed Follow up with primary care doctor <Marco Rajput APRN - Last Filed: 02/20/25 15:42> Patient Language: Lao <Marco Rajput APRN - Last Filed: 02/20/25 15:42> Prescriptions: New cefdinir 300 mg capsule 300 mg PO Q12H 7 Days Qty: 14 0RF No Action azithromycin 250 mg tablet See Rx Instructions .ROUTE .COMPLEX Qty: 6 0RF Rx Instructions: For 250 mg dose pack: take 500 mg today (day 1), then 250 mg for 4 days (days 2-5) <Marco Rajput APRN - Last Filed: 02/20/25 15:42> Follow-up/Referrals: PHYSICIAN,SECTIONIZER [Primary Care Provider, Internal Medicine] Finesse Torre MD [Physician, Family Practice] <Marco Rajput APRN - Last Filed: 02/20/25 15:42>
--- OUTSIDE RECORDS SUMMARY | 2025-02-20 15:44 | XMS_ITS | Clinical Summary ---
Author Organization [facility] Address [address] [place] [address] Care Team Providers Care Wellness Rn Name Role Phone Unavailable Primary Care Provider Unavailabl e Source Comments [facility],non-owned Affiliates and Associated Physician Practices is amultiple site organization consisting of ambulatory clinics and hospital sitesin [place], [place], [place] and [place]. This disclosure is being madepursuant to the Care Everywhere program and may not contain all information available regarding this patient. Last updated 18.[facility] Allergies Active Allergy Reactions Criticality Noted Date Comments Penicillins Angioedema High 03/17/2020 Hives and rash also Medications * Be aware that medications may not be up to date on this document. Alwaysverify current medications with the patient. Vit-Fe Fumarate-FA ( VITAMIN) 28-0.8 MG tabletIndicatio ns: Take 1 tablet by mouth once daily Reasons: Active vitamin D, ergocalciferol, (DRISDOL) 1.25 MG (15484 UT) capsule Take 50,000 Units by mouth every 30 days Active aspirin (ASPIRIN) 81 MG chew tabletIndicatio ns:preeclampsia prevention Take 2 tablets by mouth once daily Reasons: preeclampsia prevention 100 tablet 11 0 Active Active Problems Problem Noted Date Diagnosed Date Hx of preeclampsia, prior , currently p regnant 03/19/2020 Assessment & Plan (03/19/2020 12:04 PM CDT): The risk of recurrence of preeclampsia in a subsequent has been reported to be up to 14 percent. Supervision of high-risk of hanna ruthie gilda 03/17/2020 Overview (03/17/2020): Datinw4d u/s within 6 days of uncertain LMP of 10/09/19, making JACE based on ultrasound: 07/21/20 (also, patient had delivery 08/26/19) summary: O positive, negative antibody screen, Hep B Surf Ag: negative, Rubella Immune, RPR: NR, HIV NR Hemoglobin A1c: 4.7% AFP screen: increased risk for NTD, AFP value: 2.84 MoM 24 hour urine protein: 255mg CMP: creatinine: 0.6, AST/ALT: 18/18 CBC: WBC: 8.4, H/H/P: 12.7/36.4/252 Short interval [...] of Binge Drinking Not on file 12/2019 Comments No Sex and Gender Information Value Date Recorded Sex Assigned at Female 02/17/2024 3:48 PM CDT Legal Sex Female 8:55 AM CDT Gender Identity Female 02/17/2024 3:48 PM CDT Sexual Orientation Straight 02/17/2024 3: 48 PM CDT Last Filed Vital Signs Vital Sign Reading Time Taken Comments Blood Pressure 144/86 07/08/2020 1:52 PM PROCESS CONTROL SPECIALIST Pulse 80 07/08/2020 1:52 PM PROCESS CONTROL SPECIALIST Temperature 36.4 C (97.5 F) 07/01/2020 1:09 PM PROCESS CONTROL SPECIALIST Respiratory Rate - - Oxygen Saturation - - Inhaled Oxygen Concentration - - Weight 87 kg (191 lb 12.8 oz) 03/19/2020 10:55 A M CDT Height 160 cm (5' 3) 03/19/2020 10:55 AM CDT Body Mass Index 33.98 03/19/2020 10:55 AM CDT Plan of Treatment Health Maintenance Due Date Last Done Comments HIV SCREENING 2006 HEPATITIS C SCREENING 05/07/2009 DTAP/TDAP/TD VACCINES (1 - Tdap) 2010 HEPATITIS B VACCINE (1 of 3 - 19+ 3-dose series) 2010 HPV VACCINE (1 - 3-dose SCDM series) 2018 DEPRESSION SCREENING 06/13/2024 COVID-19 VACCINE (1 - 2023-2 5 season) 2025 INFLUENZA VACCINE (#1) 2025 04/24/2015 ZOSTER VACCINE (1 of 2) 2041 HIB VACCINE Aged Out No longer eligi ble based on patient's age to complete this topic MENINGOCOCCAL (Group B) VACC INE SHARED DECISION-MAKING Aged Out No longer eligibl e based on patient's age to complete this topic MENINGOCOCCAL GROUPS A/C/Y/W VACCINE Aged Out No longer eligible b ased on patient's age to complete this topic PNEUMOCOCCAL VACCINE Aged Out No long er eligible based on patient's age to complete this topic Insurance [facility]
--- OUTSIDE RECORDS SUMMARY | 2025-02-20 15:44 | XMS_ITS | Clinical Summary ---
Author Organization [facility] Address [address] [place] [address] Care Team Providers Care Caseworker Name Role Phone Faby Conroy MD Primary Care Provider +1- [phone] Allergies Active Allergy Reactions Criticality Noted Date [...] 07/20/2023 Assessment & Plan (07/21/2023 10:09 AM FLORIST MANAGER): - Patient with history of recurrent [...] 07/20/2023 Assessment & Plan (07/20/2023 9:22 PM FLORIST MANAGER): - Eval/mgt per above Severe pain 07/20/2023 Assessment & Plan (07/21/2023 10:10 AM FLORIST MANAGER): - L Flank pain in setting of pyelonephritis per above - Tylenol, oxycodone, and dilaudid - cont home pyridium Nausea 07/20/2023 Assessment & Plan (07/20/2023 9:51 PM FLORIST MANAGER): - Cont zofran Encounters Date Type Department Care Team Description 02/20/2025 Orders Only [facility] [place] [facility] [address] [place] [address] [address] [place] [address] Prince Wolf MD Kidney stone (Primary Dx) [...] on file Legal Sex Female 10:09 PM FLORIST MANAGER Gender Identity Not on file Sexual [...] 72.6 kg (160 lb) 08/15/2023 5:36 PM FLORIST MANAGER Height 160 cm (5' 2.99) 08/15/2023 5:36 PM FLORIST MANAGER Body Mass Index 28.35 08/15/2023 5:36 PM FLORIST MANAGER Plan of Treatment Health Maintenance Due Date Last Done Comments Cervical Cancer Screening 1991 Depression Screening 1991 Hepatitis C Screening 1991 DTaP/Tdap/Td Vaccine (6 - Tdap) 2002 09/29/1995, 01/01/1993, 01/03/1992, Additional history exists Varicella Vaccines (1 of 2 - 13+ 2-dose series) 2004 Regular Well Visit/Exam 18-64 2009 HPV Vaccines (1 - 3-dose SCDM series) 2018 Influenza Vaccine (#1) 2025 07/21/2023, 2014 Hepatitis B Screening Completed 01/12/1997 , 10/11/1996, 09/11/1996 Pneumococcal vaccine <65 Aged Out No longer eligible based on patient's age to complete this topic Medical Devices Explanted Type Area Tire Changer Aircraft Device Identifier Shelf Expiration Date Model / Serial / Lot [employer] [id number] 6fr 22cm 145cm Radiopaque Positioner Filiform Flexible Tip - [id number] Implanted:Qty: 1 on 08/15/2023 by Prince Wolf MD at [facility] Explanted:Qty: 1 on 09/27/2023 by Prince Wolf MD at [facility] Stent Left: Ureter [employer] [id number] 06/16/2026 [id number] / / [id number] [employer] [id number] 6fr 22cm 145cm Radiopaque Positioner Filiform Flexible Tip - [id number] Implanted:Qty: 1 on 08/15/2023 by Prince Wolf MD at [facility] Explanted:Qty: 1 on 09/27/2023 by Prince Wolf MD at [facility] Stent Right: Ureter [employer] [id number] 05/20/2026 [id number] / / [id number] Kidney Stent- Implanted:06/13 (Quantity not on file) Explanted:Qty: 1 on 08/15/2023 by Sabino Saleem MD at [facility] Left: Kidney Description:Explanted intact and complete Insurance [facility] Advance Directives For more information, please contact: [phone] * Full Code (Latest Code Status on File) Date Activated Date Inactivated Comments 08/15/2023 5:27 PM 08/16/2023 10:26 PM * Full Code Date Activated Date Inactivated Comments 07/20/2023 9:49 PM 07/21/2023 7:24 PM Care Teams Caseworker Relationship Specialty Start Date End Date Faby Conroy MD [facility] [place] [address] PCP - General Family Medicine 07/05/23
--- OUTSIDE RECORDS SUMMARY | 2025-02-20 15:44 | XMS_ITS | Clinical Summary ---
Author Organization [facility] Address [address] [place] [phone] Phone Care Team Providers Care Meterman Name Role Phone Unavailable Primary Care Provider [...] on file Legal Sex Female 6:06 AM PRODUCT SAFETY AND STANDARDS ENGINEER Gender Identity Not on file Sexual Orientation Not on file Occupation Industry Job Start Date Job End Date Not on file Not on file Not on file Not on file Plan of Treatment Health Maintenance Due Date Last Done Comments DTAP/TDAP/TD VACCINES (1 - Tdap) 2010 HEPATITIS B VACCINES (1 of 3 - 19+ 3-dose series) 04/15 HPV/Cotest (21-29) 2012 HPV VACCINES (1 - 3-dose SCDM series) 2018 CERVICAL CANCER SCREENING 2021 HPV/Cotest (30-65) 2021 PAP SMEAR 2021 INFLUENZA VACCINE (#1) 2025 RSV VACCINE (60+ or ) (1 - 1-dose 75+ series) 2066
--- OUTSIDE RECORDS SUMMARY | 2025-02-20 15:44 | XMS_ITS | Encounter Summary ---
Author Organization [facility] Address [address] [place] [address] Phone Care Team Providers Care Heating Element Builder Name Role Phone Faby Conroy MD Primary Care Provider +1- [phone] Encounter Details Date Type Department Care Team (Late st Contact Info) Description 02/20/2025 Orders Only [facility] Medicine Physicians [facility] Surgery [address] [facility] [place] [address] [place] [address] Prince Wolf MD [address] [facility] [address] [place] [address] Kidney stone (Primary Dx) Social History Tobacco [...] on file Legal Sex Female 10:09 PM TESTER SOUND Gender Identity Not on file Sexual Orientation Not on file documented as of this encounter Plan of Treatment Scheduled Orders Name Type Priority Associated Diagnoses Orde r Schedule Litholink 24Hr Urine Panel Lab Routine Kidney stone Expected: 02/20/2025, Expires: 02/20/2026 documented as of this encounter Visit Diagnoses Diagnosis Kidney stone- Primary Calculus of kidney documented in this encounter Care Teams Heating Element Builder Relationship Specialty Start Date End Date Faby Conroy MD [facility] [place] [address] PCP - General Family Medicine 07/05/23 documented as of this encounter
[2025-02-20 16:02] LABS: Hematocrit 33.1 % (37.0-47.0); Hemoglobin 10.7 g/dL (12.0-15.0); Immature Granulocyte Percent A 0.4 % (0-0.5); Lymphocytes Absolute Auto 1.17 K/mm3 (0.9-3.2); Mean Corpuscular HGB Conc 32.3 g/dl (32-36); Mean Corpuscular Hemoglobin 29.9 pg (26-34); Mean Corpuscular Volume 92.5 fl (80-100); Nucleated Red Blood Cells Absolute Auto 0.000 K/mm3 (0.0-0.012); Nucleated Red Blood Cells Perc 0.0 % (0.0-0.2); Platelet Count Result 209 k/mm3 (150-375); Red Blood Count 3.58 M/mm3 (4.2-5.4); White Blood Count 4.6 K/mm3 (4.5-10.0)
[2025-02-20 16:12] LABS: Alanine Aminotransferase 16 U/L (6-35); Albumin Level 4.0 g/dL (3.5-5.1); Alkaline Phosphatase 67 U/L (38-126); Anion Gap 6 mmol/L (4-12); Aspartate Amino Transferase 20 U/L (14-36); Bilirubin,Total 0.4 mg/dL (0.2-1.3); Blood Urea Nitrogen 15 mg/dL (7-17); Calcium 8.7 mg/dL (8.4-10.2); Carbon Dioxide 25 mmol/L (22-30); Chloride 107 mmol/L (98-107); Estimated CRCL calculation 73 ml/min; Estimated Glomerular Filt Rate > 60; Glucose 96 mg/dL (65-110); Lipase 257 U/L (23-300); Potassium 4.3 mmol/L (3.4-5.0); Sodium 138 mmol/L (137-145); Total Protein 6.9 g/dL (6.3-8.2)
[2025-02-20 16:47] LABS: Add Urine Microscopic? YES; Appearance Urine Cloudy (Clear); Glucose Urine UA Negative (Negative); Leukocyte Esterase Ur 2+ LEU/UL (Negative); Need Manual Microscopic Reviewed; Nitrate Urine Negative (Negative); Non Pathogenic Casts 0-2; Specific Grav Ur 1.021 (1.001-1.035)
[2025-02-20 16:52] VITALS: BP 124/82; PULSE 88; RESP 16; TEMP 37; O2SAT 98
[2025-02-20 16:53] LABS: BEDSIDEPREGUCG Negative (Negative)
[2025-02-20 17:02] LABS: Pregnancy On Board Control Positive
--- OUTSIDE RECORDS SUMMARY | 2025-02-20 17:57 | XMS_ITS | Encounter Summary ---
Author Organization [facility] Address [address] [place] [address] Phone Care Team Providers Care Railroad Inspector Name Role Phone Faby Conroy MD Primary Care Provider +1- [phone] Encounter Details Date Type Department Care Team (Late st Contact Info) Description 02/20/2025 Orders Only [facility] Medicine Physicians [facility] Surgery [address] [facility] [address] [place] [address] Prince Wolf MD [address] [facility] [address] [place] [address] Kidney stone (Primary Dx) Social [...] on file 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 Gender Identity Not on file Sexual Orientation Not on file documented as of this encounter Plan of Treatment Scheduled Orders Name Type Priority Associated Diagnoses Orde r Schedule Litholink 24Hr Urine Panel Lab Routine Kidney stone Expected: 02/20/2025, Expires: 02/20/2026 documented as of this encounter Visit Diagnoses Diagnosis Kidney stone- Primary Calculus of kidney documented in this encounter Care Teams Railroad Inspector Relationship Specialty Start Date End Date Faby Conroy MD [facility] [place] [address] PCP - General Family Medicine 07/05/23 documented as of this encounter
--- OUTSIDE RECORDS SUMMARY | 2025-02-20 17:57 | XMS_ITS | Clinical Summary ---
Author Organization [facility] Address [address] [facility] [place] [address] Care Team Providers Care Marketing Consultant Name Role Phone Unavailable Primary Care Provider Unavailabl e Source Comments [facility],non-owned Affiliates and Associated Physician Practices is amultiple site organization consisting of ambulatory clinics and hospital sitesin [place], [place], [place] and [place]. This disclosure is being madepursuant to the Care Everywhere program and may not contain all information available regarding this patient. Last updated 18.[facility] Allergies Active Allergy Reactions Criticality Noted Date Comments Penicillins Angioedema High 03/17/2020 Hives and rash also Medications * Be aware that medications may not be up to date on this document. Alwaysverify current medications with the patient. Vit-Fe Fumarate-FA ( VITAMIN) 28-0.8 MG tabletIndicatio ns: Take 1 tablet by mouth once daily Reasons: Active vitamin D, ergocalciferol, (DRISDOL) 1.25 MG (11639 UT) capsule Take 50,000 Units by mouth [...] Comments Blood Pressure 144/86 07/08/2020 1:52 PM ORDERLIES TEACHER Pulse 80 07/08/2020 1:52 PM ORDERLIES TEACHER Temperature 36.4 C (97.5 F) 07/01/2020 1:09 PM ORDERLIES TEACHER Respiratory Rate - - Oxygen Saturation - [...] patient's age to complete this topic Insurance [facility]
--- OUTSIDE RECORDS SUMMARY | 2025-02-20 17:57 | XMS_ITS | Clinical Summary ---
Author Organization [facility] Address [address] [place] [address] Care Team Providers Care Home Health Care Provider Name Role Phone Faby Conroy MD Primary Care Provider +1- [phone] Allergies Active Allergy Reactions Criticality Noted Date [...] 07/20/2023 Assessment & Plan (07/21/2023 10:09 AM MULTI OPERATION MACHINE OPERATOR): - Patient with history of recurrent nephrolithiasis [...] 07/20/2023 Assessment & Plan (07/20/2023 9:22 PM MULTI OPERATION MACHINE OPERATOR): - Eval/mgt per above Severe pain 07/20/2023 Assessment & Plan (07/21/2023 10:10 AM MULTI OPERATION MACHINE OPERATOR): - L Flank pain in setting of pyelonephritis per above - Tylenol, oxycodone, and dilaudid - cont home pyridium Nausea 07/20/2023 Assessment & Plan (07/20/2023 9:51 PM MULTI OPERATION MACHINE OPERATOR): - Cont zofran Encounters Date Type Department Care Team Description 02/20/2025 Orders Only [facility] Medicine [facility] [place] [facility] [address] [place] [address] [address] [place] [address] Prince Wolf MD Kidney stone [...] on file Legal Sex Female 10:09 PM MULTI OPERATION MACHINE OPERATOR Gender Identity Not on file Sexual Orientation [...] 72.6 kg (160 lb) 08/15/2023 5:36 PM MULTI OPERATION MACHINE OPERATOR Height 160 cm (5' 2.99) 08/15/2023 5:36 PM MULTI OPERATION MACHINE OPERATOR Body Mass Index 28.35 08/15/2023 5:36 PM MULTI OPERATION MACHINE OPERATOR Plan of Treatment Health Maintenance Due Date [...] this topic Medical Devices Explanted Type Area Insole Beveler Device Identifier Shelf Expiration Date Model / Serial / Lot [employer] [id number] 6fr 22cm 145cm Radiopaque Positioner Filiform Flexible Tip - [id number] Implanted:Qty: 1 on 08/15/2023 by Prince Wolf MD at [facility] Explanted:Qty: 1 on 09/27/2023 by Prince Wolf MD at [facility] Stent Left: Ureter [employer] [id number] 06/16/2026 [id number] / / [id number] [employer] [id number] 6fr 22cm 145cm Radiopaque Positioner Filiform Flexible Tip - [id number] Implanted:Qty: 1 on 08/15/2023 by Prince Wolf MD at [facility] Explanted:Qty: 1 on 09/27/2023 by Prince Wolf MD at [facility] Stent Right: Ureter [employer] [id number] 05/20/2026 [id number] / / [id number] Kidney Stent- Implanted:06/13 (Quantity not on file) Explanted:Qty: 1 on 08/15/2023 by Sabino Saleem MD at [facility] Left: Kidney Description:Explanted intact and complete Insurance [facility] Advance Directives For more information, please contact: [phone] * Full Code (Latest Code Status on File) Date Activated Date Inactivated Comments 08/15/2023 5:27 PM 08/16/2023 10:26 PM * Full Code Date Activated Date Inactivated Comments 07/20/2023 9:49 PM 07/21/2023 7:24 PM Care Teams Home Health Care Provider Relationship Specialty Start Date End Date Faby Conroy MD [facility] [place] [address] PCP - General Family Medicine 07/05/23
[2025-02-20] MEDS: cefTRIAXone 1 GM in SODIUM CHLORIDE 0.9% IV 50 ML 100 ML IVPB (18:20)
[2025-02-20] MEDS: KETOROLAC 15 MG/ML VIAL (*BKC) IV PUSH (18:20)
[2025-02-20 19:04] VITALS: BP 124/72; PULSE 72; RESP 17; O2SAT 100
== END 2025-02-20 19:06 | disposition home or self-care (01) ==
PROVIDERS: Emergency Provider Physician Assistant
DX: N39.0 Urinary tract infection, site not specified (principal); Z87.440 Personal history of urinary (tract) infections; Z87.442 Personal history of urinary calculi; Z90.49 Acquired absence of other specified parts of digestive tract; N20.0 Calculus of kidney
CPT/HCPCS: 36415; 74177; 80053; 81001; 81025; 83690; 85025; 87086; 96365; 96375; 99284; J0696; J1885; Q9967

== ENCOUNTER 2025-06-10 14:01 | Observation (INO) | payer OTHER, SELFPAY ==
[2025-06-10] VITALS (25 sets, daily range): BP systolic 106–126; BP diastolic 60–81; PULSE 61–91; RESP 10–24; TEMP 36.4–36.8; O2SAT 97–100; BMI 23.3
--- NOTE | ~2025-06-10 | CT_ITS ---
EXAMINATION: CT abdomen pelvis wo con DATE: 06/10/2025 18:12 INDICATION: Left lower quadrant abdominal pain TECHNIQUE: Computed tomography (CT) of the abdomen and pelvis was performed with 100 mL Omnipaque-350 intravenous contrast. Automated exposure control and iterative reconstruction technique were employed. The dose-length product was 239.72 mGy-cm. COMPARISON: 02/20/2025 and 06/26/2023 FINDINGS: Lung bases are clear. Heart size is normal. No pericardial or pleural effusion. Cholecystectomy clips at the gallbladder fossa. Liver, spleen, pancreas and bilateral adrenal glands are normal. Bilateral medullary nephrocalcinosis with multiple more discrete small bilateral renal stones. There is a larger 7 mm obstructing stone at the proximal left ureter with mild to moderate left hydroureteronephrosis. No stones in the more distal ureters. Bladder and anteverted uterus are normal. No bowel obstruction. Normal gas-filled appendix. No free intraperitoneal gas or fluid. No pathologically enlarged abdominal or pelvic lymphadenopathy. Bones are unremarkable. IMPRESSION: 1. Bilateral medullary nephrocalcinosis and multiple bilateral renal stones proximal left ureteral stone with mild to moderate left hydroureteronephrosis. Reviewed, dictated and finalized at location A. ENSATION AND BENEFITS MANAGER IMPRESSION: 1. Bilateral medullary nephrocalcinosis and multiple bilateral renal stones pro ximal left ureteral stone with mild to moderate left hydroureteronephrosis.
--- NOTE | ~2025-06-10 | XR_ITS ---
XR abdomen/kub 1V INDICATION: kidney stone REFERENCE: NONE FINDINGS: A supine view of the abdomen is submitted. The bowel gas pattern is nonobstructive. No free air is identified. Osseous structures are intact. Medullary nephrocalcinosis are again noted. IMPRESSION: Medullary nephrocalcinosis. Nonobstructive bowel gas pattern. Reviewed, dictated and finalized at location S. ER MACHINE OPERATOR
--- NOTE | ~2025-06-10 | XR_ITS ---
EXAMINATION: XR retrograde pyelo w/stent LT DATE: 06/11/2025 14:52 INDICATION: Left internal ureteral stent placement TECHNIQUE: Fluoroscopic images from a left internal ureteral stent placement are submitted for review. 27 seconds of fluoroscopy time. FINDINGS: There is a left double-J internal ureteral stent projecting in expected position, with proximal [place] loop at the level of the renal pelvis and distal loop in the pelvis within the bladder lumen. IMPRESSION: 1. Left internal ureteral stent placement. Please refer to real-time procedural findings for details. Reviewed, dictated and finalized at location O. S AND MARKETING SPECIALIST IMPRESSION: 1. Left internal ureteral stent placement. Please refer to real-time procedur al findings for details.
--- OUTSIDE RECORDS SUMMARY | 2025-06-10 14:14 | XMS_ITS | Clinical Summary ---
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
--- OUTSIDE RECORDS SUMMARY | 2025-06-10 14:15 | XMS_ITS | Clinical Summary ---
Author Organization [facility] Address [address] [place] [address] Care Team Providers Care Nurse Special Name Role Phone Faby Conroy MD Primary Care Provider +1- [phone] Allergies Active Allergy Reactions Criticality Noted Date [...] 07/20/2023 Assessment & Plan (07/21/2023 10:09 AM C ARCHITECT): - Patient with history of recurrent nephrolithiasis [...] 07/20/2023 Assessment & Plan (07/20/2023 9:22 PM C ARCHITECT): - Eval/mgt per above Severe pain 07/20/2023 Assessment & Plan (07/21/2023 10:10 AM C ARCHITECT): - L Flank pain in setting of pyelonephritis per above - Tylenol, oxycodone, and dilaudid - cont home pyridium Nausea 07/20/2023 Assessment & Plan (07/20/2023 9:51 PM C ARCHITECT): - Cont zofran Immunizations Immunization Administration Dates [...] on file Legal Sex Female 10:09 PM C ARCHITECT Gender Identity Not on file Sexual Orientation [...] 72.6 kg (160 lb) 08/15/2023 5:36 PM C ARCHITECT Height 160 cm (5' 2.99) 08/15/2023 5:36 PM C ARCHITECT Body Mass Index 28.35 08/15/2023 5:36 PM C ARCHITECT Plan of Treatment Health Maintenance Due Date [...] this topic Medical Devices Explanted Type Area Pipe Organ Mechanic Apprentice Device Identifier Shelf Expiration Date Model / Serial / Lot [employer] [id number] 6fr 22cm 145cm Radiopaque Positioner Filiform Flexible Tip - [id number] Implanted:Qty: 1 on 08/15/2023 by Prince Wolf MD at [facility] Explanted:Qty: 1 on 09/27/2023 by Prince Wolf MD at [facility] Stent Left: Ureter [employer] [id number] 06/16/2026 [id number] / / [id number] [employer] [id number] 6fr 22cm 145cm Radiopaque Positioner Filiform Flexible Tip - [id number] Implanted:Qty: 1 on 08/15/2023 by Prince Wolf MD at [facility] Explanted:Qty: 1 on 09/27/2023 by Prince Wolf MD at [facility] Stent Right: Ureter [employer] [id number] 05/20/2026 [id number] / / [id number] Kidney Stent- Implanted:06/13 (Quantity not on file) Explanted:Qty: 1 on 08/15/2023 by Sabino Saleem MD at [facility] Left: Kidney Description:Explanted intact and complete Insurance [facility] Advance Directives For more information, please contact: [phone] * Full Code (Latest Code Status on File) Date Activated Date Inactivated Comments 08/15/2023 5:27 PM 08/16/2023 10:26 PM * Full Code Date Activated Date Inactivated Comments 07/20/2023 9:49 PM 07/21/2023 7:24 PM Care Teams Nurse Special Relationship Specialty Start Date End Date Faby Conroy MD [facility] [place] [address] PCP - General Family Medicine 07/05/23
--- OUTSIDE RECORDS SUMMARY | 2025-06-10 14:15 | XMS_ITS | Clinical Summary ---
Author Organization [facility] [employer] Address [address] [facility] [place] [address] Care Team Providers Care Shore Worker Name Role Phone Unavailable Primary Care Provider Unavailabl e Source Comments [facility] [employer],non-owned Affiliates and Associated Physician Practices is amultiple site organization consisting of ambulatory clinics and hospital sitesin [place], [place], [place] and [place]. This disclosure is being madepursuant to the Care Everywhere program and may not contain all information available regarding this patient. Last updated 18.[facility] [employer] Allergies Active Allergy Reactions Criticality Noted Date Comments Penicillins Angioedema High 03/17/2020 Hives and rash also Medications * Be aware that medications may not be up to date on this document. Alwaysverify current medications with the patient. Vit-Fe Fumarate-FA ( VITAMIN) 28-0.8 MG tabletIndicatio ns: Take 1 tablet by mouth once daily Reasons: Active vitamin D, ergocalciferol, (DRISDOL) 1.25 MG (72588 UT) capsule Take 50,000 Units by mouth [...] Comments Blood Pressure 144/86 07/08/2020 1:52 PM CUSTOMER SUPPORT AGENT Pulse 80 07/08/2020 1:52 PM CUSTOMER SUPPORT AGENT Temperature 36.4 C (97.5 F) 07/01/2020 1:09 PM CUSTOMER SUPPORT AGENT Respiratory Rate - - Oxygen Saturation - [...] DEPRESSION SCREENING 06/13/2024 COVID-19 VACCINE (1 - 2024-2 6 season) 2025 INFLUENZA VACCINE (#1) 2025 04/24/2015 [...] patient's age to complete this topic Insurance [facility]
[2025-06-10 16:17] LABS: Hematocrit 35.9 % (37.0-47.0); Hemoglobin 11.6 g/dL (12.0-15.0); Immature Granulocyte Percent A 0.2 % (0-0.5); Lymphocytes Absolute Auto 1.19 K/mm3 (0.9-3.2); Mean Corpuscular HGB Conc 32.3 g/dl (32-36); Mean Corpuscular Hemoglobin 29.5 pg (26-34); Mean Corpuscular Volume 91.3 fl (80-100); Nucleated Red Blood Cells Absolute Auto 0.000 K/mm3 (0.0-0.012); Nucleated Red Blood Cells Perc 0.0 % (0.0-0.2); Platelet Count Result 219 k/mm3 (150-375); Red Blood Count 3.93 M/mm3 (4.2-5.4); White Blood Count 8.4 K/mm3 (4.5-10.0)
[2025-06-10 16:27] LABS: Alanine Aminotransferase 18 U/L (6-35); Albumin Level 3.9 g/dL (3.5-5.1); Alkaline Phosphatase 71 U/L (38-126); Anion Gap 3 mmol/L (4-12); Aspartate Amino Transferase 21 U/L (14-36); Bilirubin,Total 0.6 mg/dL (0.2-1.3); Blood Urea Nitrogen 14 mg/dL (7-17); Calcium 9.1 mg/dL (8.4-10.2); Carbon Dioxide 26 mmol/L (22-30); Chloride 109 mmol/L (98-107); Estimated CRCL calculation 82 ml/min; Estimated Glomerular Filt Rate > 60; Glucose 98 mg/dL (65-110); Lipase 87 U/L (23-300); Potassium 4.2 mmol/L (3.4-5.0); Sodium 138 mmol/L (137-145); Total Protein 6.9 g/dL (6.3-8.2)
[2025-06-10 16:33] LABS: BEDSIDEPREGUCG Negative (Negative)
[2025-06-10 16:39] LABS: Add Urine Microscopic? YES; Appearance Urine Clear (Clear); Glucose Urine UA Negative (Negative); Leukocyte Esterase Ur Trace LEU/UL (Negative); Nitrate Urine Negative (Negative); Non Pathogenic Casts 0-2; Specific Grav Ur 1.015 (1.001-1.035)
--- OUTSIDE RECORDS SUMMARY | 2025-06-10 16:44 | XMS_ITS | Clinical Summary ---
Author Organization [facility] Address [address] [place] [address] Care Team Providers Care Regulator Assembler Name Role Phone Faby Conroy MD Primary Care Provider +1- [phone] Allergies Active Allergy Reactions Criticality Noted Date [...] 07/20/2023 Assessment & Plan (07/21/2023 10:09 AM MARINE BIOLOGIST): - Patient with history of recurrent nephrolithiasis [...] 07/20/2023 Assessment & Plan (07/20/2023 9:22 PM MARINE BIOLOGIST): - Eval/mgt per above Severe pain 07/20/2023 Assessment & Plan (07/21/2023 10:10 AM MARINE BIOLOGIST): - L Flank pain in setting of pyelonephritis per above - Tylenol, oxycodone, and dilaudid - cont home pyridium Nausea 07/20/2023 Assessment & Plan (07/20/2023 9:51 PM MARINE BIOLOGIST): - Cont zofran Immunizations Immunization Administration Dates [...] on file Legal Sex Female 10:09 PM MARINE BIOLOGIST Gender Identity Not on file Sexual Orientation [...] 72.6 kg (160 lb) 08/15/2023 5:36 PM MARINE BIOLOGIST Height 160 cm (5' 2.99) 08/15/2023 5:36 PM MARINE BIOLOGIST Body Mass Index 28.35 08/15/2023 5:36 PM MARINE BIOLOGIST Plan of Treatment Health Maintenance Due Date [...] this topic Medical Devices Explanted Type Area Copper Plate Lithographer Device Identifier Shelf Expiration Date Model / Serial / Lot [employer] [id number] 6fr 22cm 145cm Radiopaque Positioner Filiform Flexible Tip - [id number] Implanted:Qty: 1 on 08/15/2023 by Prince Wolf MD at [facility] Explanted:Qty: 1 on 09/27/2023 by Prince Wolf MD at [facility] Stent Left: Ureter [employer] [id number] 06/16/2026 [id number] / / [id number] [employer] [id number] 6fr 22cm 145cm Radiopaque Positioner Filiform Flexible Tip - [id number] Implanted:Qty: 1 on 08/15/2023 by Prince Wolf MD at [facility] Explanted:Qty: 1 on 09/27/2023 by Prince Wolf MD at [facility] Stent Right: Ureter [employer] [id number] 05/20/2026 [id number] / / [id number] Kidney Stent- Implanted:06/13 (Quantity not on file) Explanted:Qty: 1 on 08/15/2023 by Sabino Saleem MD at [facility] Left: Kidney Description:Explanted intact and complete Insurance [facility] Advance Directives For more information, please contact: [phone] * Full Code (Latest Code Status on File) Date Activated Date Inactivated Comments 08/15/2023 5:27 PM 08/16/2023 10:26 PM * Full Code Date Activated Date Inactivated Comments 07/20/2023 9:49 PM 07/21/2023 7:24 PM Care Teams Regulator Assembler Relationship Specialty Start Date End Date Faby Conroy MD [facility] [place] [address] PCP - General Family Medicine 07/05/23
--- OUTSIDE RECORDS SUMMARY | 2025-06-10 16:44 | XMS_ITS | Clinical Summary ---
Author Organization [facility] Address [address] [place] [address] Care Team Providers Care Industrial Seamstress Name Role Phone Unavailable Primary Care Provider Unavailabl e Source Comments [facility],non-owned Affiliates and Associated Physician Practices is amultiple site organization consisting of ambulatory clinics and hospital sitesin [place], [place], [place] and [place]. This disclosure is being madepursuant to the Care Everywhere program and may not contain all information available regarding this patient. Last updated 18.[facility] Allergies Active Allergy Reactions Criticality Noted Date Comments Penicillins Angioedema High 03/17/2020 Hives and rash also Medications * Be aware that medications may not be up to date on this document. Alwaysverify current medications with the patient. Vit-Fe Fumarate-FA ( VITAMIN) 28-0.8 MG tabletIndicatio ns: Take 1 tablet by mouth once daily Reasons: Active vitamin D, ergocalciferol, (DRISDOL) 1.25 MG (53703 UT) capsule Take 50,000 Units by mouth [...] Comments Blood Pressure 144/86 07/08/2020 1:52 PM SENIOR ECONOMIST Pulse 80 07/08/2020 1:52 PM SENIOR ECONOMIST Temperature 36.4 C (97.5 F) 07/01/2020 1:09 PM SENIOR ECONOMIST Respiratory Rate - - Oxygen Saturation - [...] patient's age to complete this topic Insurance [facility]
--- OUTSIDE RECORDS SUMMARY | 2025-06-10 16:44 | XMS_ITS | Clinical Summary ---
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
[2025-06-10 16:52] LABS: Influenza A QL RT-PCR Negative (Negative); Influenza B QL RT-PCR Negative (Negative); RSV RNA, RT-PCR Negative (Negative); SARS-CoV-2 RNA PCR Negative (Negative)
[2025-06-10] MEDS: LACTATED RINGERS 1,000 ML 999 ML IV CONT (17:09)
--- NOTE | 2025-06-10 17:17 | ED_ITS ---
HPI - General Adult General Chief complaint: Nausea/Vomiting/Diarrhea Stated complaint: Vomiting yellow-abdomen in knots Time Seen by Provider: 06/10/25 16:39 History of Present Illness HPI narrative: 35-year-old female present to the emergency department for evaluation for left lower quadrant abdominal pain. Patient began having some left lower quadrant abdominal pain last night but worsened acutely this morning. Patient does have a prior history of kidney stone but denies any prior history of ovarian cyst or ovarian torsion. Patient is not currently menstruating. Patient denies any possibility of . Patient is complaining of pain and nausea. Patient is resting comfortably at time of evaluation. Related Data Allergies Allergy/AdvReac Type Severity Reaction Status Date / Time Penicillins Allergy Mild Hives Verified 06/10/25 16:12 Review of Systems 2 Review of Systems: All systems reviewed & are unremarkable except as noted in HPI and below PMFSH Past Medical History Medical History UTI (urinary tract infection) Left renal stone Request for sterilization History of pre-eclampsia Surgical History Surgical History H/O lithotripsy Hx of cholecystectomy Family History Family History Mother Kidney stone FH: cholecystectomy Other No pertinent family history Social History Social History Smoking status: Never smoker Second hand tobacco smoke exposure: No Alcohol intake: never Substance use: never Lack of Transportation: No Lack of Food: Never True Current Housing: I Have Housing Concerned About Future Housing: No Difficulty Paying Gas/Electric Bills: No Difficulty Paying for Meds: No Currently Unemployed: No Education: Don't Know Difficulty w/ Childcare or Family Care: No Gender identity (if verbalized by the patient): Female Spiritual care concerns: No Exam 2 Narrative: APPEARANCE: Uncomfortable appearing HEAD: normocephalic, atraumatic. EYES: PERRLA/EOMI, conjunctivae clear. NECK: Supple. No adenopathy, no masses. RESPIRATORY: Airway patent, respirations nonlabored. Clear to auscultation bilaterally, no rales, rhonchi, wheezing. CARDIOVASCULAR: Regular rate and rhythm without murmurs rubs or gallops. ABDOMINAL: Left CVA tenderness to palpation and left lower quadrant tenderness to palpation MUSCULOSKELETAL: Moves all extremities. Strength/ROM intact, No edema, No calf tenderness. NEURO: Alert. Cranial nerves II through XII intact. Good gait. Good coordination SKIN: Warm, dry. Normal Color Course Vital Signs Vital signs: Vital Signs Temperature 97.6 F 06/10/25 14:07 Pulse Rate 76 06/10/25 14:07 Respiratory Rate 18 06/10/25 14:07 Blood Pressure 126/67 06/10/25 14:07 Pulse Oximetry 99 06/10/25 14:07 Oxygen Delivery Room Air 06/10/25 14:07 Temperature 97.6 F 06/10/25 14:07 Pulse Rate 68 06/10/25 18:24 Respiratory Rate 17 06/10/25 18:24 Blood Pressure 114/64 06/10/25 18:24 Pulse Oximetry 97 06/10/25 18:24 Oxygen Delivery Room Air 06/10/25 14:07 [facility] Narrative Medical decision making narrative: 35-year-old female presents emergency department for evaluation for left lower quadrant pain. Patient is currently afebrile and leukocytosis and hemoglobin 11.6. Patient's kidney function is similar to baseline at 0.69. Patient's UA was positive for blood positive for leukocyte esterase nitrite negative with 6- 10 white blood cells and no bacteria. Patient's urine test was negative. Patient was treated with 1 mg IV Dilaudid. Patient is still having some pain. I did discuss outpatient treatment and outpatient follow-up for the 7 mm left-sided proximal ureteral calculi and patient feels her pain is poorly controlled and prefers to be admitted for stent placement. Patient has had prior stent placement and lithotripsy. Patient has previous had follow-up at [facility]. Patient does not currently have a urologist. Case was discussed with Urology and anticipate doing a potential stenting tomorrow patient will be made NPO after midnight Differential Diagnosis Differential Diagnosis: Ureteral calculi, acute kidney injury, urinary tract infection Lab Data [facility] Lab Attestation statement: I personally reviewed the patient's lab results. 06/10/25 16:07 06/10/25 16:07 Labs: Lab Results 12/29/25 12/29/25 12/29/25 Range/Units 16:07 16:27 16:31 WBC 8.4 (4.5-10.0) K/mm3 RBC 3.93 L (4.2-5.4) M/mm3 Hgb 11.6 L (12.0-15.0) g/dL Hct 35.9 L (37.0-47.0) % MCV 91.3 (80-100) fl MCH 29.5 (26-34) pg MCHC 32.3 (32-36) g/dl RDW 13.2 (11.5-14.5) % Plt Count 219 (150-375) k/mm3 MPV 9.9 (7.4-10.4) fl Immature Gran % (Auto) 0.2 (0-0.5) % Neut % (Auto) 81.3 H (45.5-73.1) % Lymph % (Auto) 14.1 L (18.3-44.2) % [place] % (Auto) 4.0 (2.6-8.5) % Eos % (Auto) 0.2 (0-4.4) % Baso % (Auto) 0.2 (0.2-1.2) % Lymph # (Auto) 1.19 (0.9-3.2) K/mm3 [place] # (Auto) 0.3 (0.1-0.6) K/mm3 Eos # (Auto) 0.0 (0-0.3) K/mm3 Baso # (Auto) 0.0 (0.0-0.1) K/mm3 Abs Immat Gran (auto) 0.02 (0.00-0.031) K/mm3 Absolute Neuts (auto) 6.8 H (1.3-6.7) K/mm3 Absolute Nucleated RBC 0.000 (0.0-0.012) K/mm3 Nucleated RBC % 0.0 (0.0-0.2) % Sodium 138 (137-145) mmol/L Potassium 4.2 (3.4-5.0) mmol/L Chloride 109 H (98-107) mmol/L Carbon Dioxide 26 (22-30) mmol/L Anion Gap 3 L (4-12) mmol/L BUN 14 (7-17) mg/dL Creatinine 0.69 L (0.7-1.0) mg/dL Estim Creat Clear Calc 82 ml/min Estimated GFR > 60 (59 - ) Glucose 98 (65-110) mg/dL Calcium 9.1 (8.4-10.2) mg/dL Total Bilirubin 0.6 (0.2-1.3) mg/dL AST 21 (14-36) U/L ALT 18 (6-35) U/L Alkaline Phosphatase 71 (38-126) U/L Total Protein 6.9 (6.3-8.2) g/dL Albumin 3.9 (3.5-5.1) g/dL Lipase 87 (23-300) U/L Urine Color Yellow (Yellow) Urine Appearance Clear (Clear) Urine pH 6.0 (5.0-9.0) Ur Specific [place] 1.015 (1.001-1.035) Urine Protein 2+ H (Negative) mg/dL Urine Glucose (UA) Negative (Negative) mg/dL Urine Ketones Negative (Negative) mg/dL Ur Blood (Man) 3+ H (Negative) Urine Nitrate Negative (Negative) Urine Bilirubin Negative (Negative) Urine Urobilinogen 0.2 (<2.0) mg/dL Leukocyte Esterase Rfl Trace H (Negative) ZACH/UL Urine RBC >100 H (0-2) /hpf Urine WBC 6-10 H (0-3) /hpf Ur Squamous Epith Cells None seen (Few) /hpf Urine Bacteria None seen /hpf Urine Casts 0-2 POC Urine HCG, Qual Negative (Negative) Influenza A (RT-PCR) Negative (Negative) Influenza B (RT-PCR) Negative (Negative) RSV (RT-PCR) Negative (Negative) SARS-CoV-2 RNA (RT-PCR) Negative (Negative) Imaging Data Radiologist's impression: ITS Impressions Abdomen/Pelvis CT 06/10/25 18:18 IMPRESSION: 1. Bilateral medullary nephrocalcinosis and multiple bilateral renal stones proximal left ureteral stone with mild to moderate left hydroureteronephrosis. Discharge Plan Discharge Clinical Impression: Calculus, ureteral Patient Disposition: Still a Patient Condition: Stable Patient Language: Jamaican Prescriptions: No Action azithromycin 250 mg tablet See Rx Instructions .ROUTE .COMPLEX Qty: 6 0RF Rx Instructions: For 250 mg dose pack: take 500 mg today (day 1), then 250 mg for 4 days (days 2-5) cefdinir 300 mg capsule 300 mg PO Q12H 7 Days Qty: 14 0RF Follow-up/Referrals: PHYSICIAN,ASSEMBLER MOVEMENT [Primary Care Provider, Internal Medicine]
[2025-06-10] MEDS: ONDANSETRON INJ 4 MG/2 ML VIAL IV PUSH (17:21)
[2025-06-10] MEDS: HYDROmorphone HCL INJ (*CRX) 1 MG/ML SYR IV PUSH ×2 (17:23→22:05)
[2025-06-10] MEDS: LACTATED RINGERS 1,000 ML 125 ML IV CONT (19:35)
--- NOTE | 2025-06-10 20:05 | PM.IMHP2 ---
H&P: HPI History of Present Illness Date/Time: 06/10/25 20:05 Chief Complaint: N/V, Abdominal Pain Narrative: 35 y/o F with PMH of kidney stones presents here with nausea, vomiting, and abdominal pain. The patient presents here from home on 06/10 for further evaluation of acute onset of nausea, vomiting, and abdominal pain. She reports developing symptoms this morning around 8:00 a.m.. She describes the abdominal pain as sharp, lower mid quadrant and the lower left quadrant, radiation into her left flank, constant, and no modifying factors. She denies accompanying diarrhea, urinary frequency, dysuria, or urinary hesitancy. She reports the pain is similar to her previous experiences with kidney stones. Last kidney stone occurred in 2022 which required lithotripsy and stent placement. She additionally denies fever, chills, body aches, or respiratory symptoms. No current active nausea or vomiting at time of evaluation. Abdominal pain unchanged. Initial VS at presentation: 97.6? F, HR 76, RR 18, 126/67, and 99% on RA. ED workup showed: No leukocytosis, hemoglobin 11.6, no significant electrolyte derangements, creatinine 0.69 and GFR >60. UA showed 2+ protein/3+ blood/trace leuk esterase/greater than 100 RBC/6-10 WBC with no epithelial cells or bacteria. Viral PCR negative. CT of the abdomen/pelvis showed bilateral medullary nephrocalcinosis and multiple bilateral renal stones proximal left ureteral stone with [id number] left hydroureteronephrosis. Review of Systems Review of Systems: All systems reviewed & are unremarkable except as noted in HPI and below PMFSH Past Medical History Medical History Kidney stone UTI (urinary tract infection) Request for sterilization History of pre-eclampsia Surgical History Surgical History H/O lithotripsy Hx of cholecystectomy Family History Family History Mother Kidney stone FH: cholecystectomy Other No pertinent family history Social History Social History Smoking status: Never smoker Second hand tobacco smoke exposure: No Alcohol intake: never Substance use: never Lack of Transportation: No Lack of Food: Never True Current Housing: I Have Housing Concerned About Future Housing: No Difficulty Paying Gas/Electric Bills: No Difficulty Paying for Meds: No Currently Unemployed: No Education: Don't Know Difficulty w/ Childcare or Family Care: No Gender identity (if verbalized by the patient): Female Spiritual care concerns: No Meds Home Medications and Allergies Home Medications ?Medication ?Instructions ?Recorded ?Confirmed ?Type azithromycin 250 mg tablet See Rx Instructions PO .COMPLEX #6 07/14/24 Rx tabs cefdinir 300 mg capsule 300 mg PO Q12H 1 week #14 caps 02/20/25 Rx Allergies Allergy/AdvReac Type Severity Reaction Status Date / Time Penicillins Allergy Mild Hives Verified 06/10/25 16:12 Vital Signs Vital Signs - 24 hr 06/10/25 14:07 06/10/25 16:42 06/10/25 17:39 Temperature 97.6 F Pulse Rate 76 82 72 Respiratory Rate 18 14 18 Blood Pressure 126/67 106/70 108/70 Pulse Oximetry 99 100 97 Oxygen Delivery Room Air 06/10/25 18:01 06/10/25 18:24 06/10/25 19:36 Temperature 98.2 F Pulse Rate 72 68 67 Respiratory Rate 16 17 12 Blood Pressure 121/65 114/64 113/60 Pulse Oximetry 99 97 98 Oxygen Delivery Exam Const: General: comfortable and no acute distress Other: , female, young, nontoxic appearance HENMT: Face/Nose/Sinus: Normal nares present Mouth: Yes moist mucous membranes Eyes: General: appearance normal, both eyes and all related structures Sclera: sclerae normal Pupils: Equal, round and reactive pupils present EOM: EOMs intact bilaterally Resp: Effort & Inspection: normal respiratory effort Auscultation: clear to auscultation bilaterally Cardio: Rate: regular rate Rhythm: regular rhythm Other: S1-S2 present without murmur, rub, ectopy GI: Other: Tenderness in the lower quadrants, more so on the left. Abdomen otherwise soft, nondistended. Normal bowel sounds in all quadrants. : Other: + left CVA tenderness Skin: General skin exam: normal color and no rashes or lesions noted Wounds: no wounds Neuro: Speech: normal speech Motor exam (neuro): 5/5 motor strength present throughout Sensory Exam: normal sensation Other: A&O x4 Extrem: General: normal to inspection Psych: Mental Status: mental status grossly normal Affect: normal affect Other: Good insight and judgment, pleasant Results Labs Labs: Short CBC 06/10/25 Range/Units 16:07 WBC 8.4 (4.5-10.0) K/mm3 Hgb 11.6 L (12.0-15.0) g/dL Hct 35.9 L (37.0-47.0) % Plt Count 219 (150-375) k/mm3 BMP 06/10/25 16:07 Sodium 138 Potassium 4.2 Chloride 109 H Carbon Dioxide 26 BUN 14 Creatinine 0.69 L Glucose 98 Calcium 9.1 Liver Function 06/10/25 Range/Units 16:07 Total Bilirubin 0.6 (0.2-1.3) mg/dL AST 21 (14-36) U/L ALT 18 (6-35) U/L Alkaline Phosphatase 71 (38-126) U/L Albumin 3.9 (3.5-5.1) g/dL Urine 06/10/25 Range/Units 16:27 Urine Color Yellow (Yellow) Urine Appearance Clear (Clear) Urine pH 6.0 (5.0-9.0) Ur Specific [place] 1.015 (1.001-1.035) Urine Protein 2+ H (Negative) mg/dL Urine Glucose (UA) Negative (Negative) mg/dL Quality VTE Prophylaxis VTE prophylaxis: mechanical ordered Assessment and Plan Assessment and plan (1) Calculus, ureteral: Code(s): N20.1 - Calculus of ureter Status: Acute Assessment and Plan: Patient here with nausea, vomiting, and abdominal pain starting at 8:00 a.m. on 06/10. CT performed on 06/10 significant for bilateral medullary nephrocalcinosis and multiple bilateral renal stones proximal left ureteral stone with mild to moderate left hydroureteronephrosis. Patient has history of kidney stones, last occurrence in 2022 which required lithotripsy and stent placement. No current endorsement of systemic symptoms. UA showed soft indicators of UTI, see below. Urology consulted. ED provider spoke with on-call urologist, plan for cystoscopy on 06/11. - cystoscopy planned for 06 11, NPO at midnight - urology consulted - pain medication p.r.n.: Tylenol, [place], Dilaudid - IV fluids - treatment of possible UTI (2) Hydroureteronephrosis: Code(s): N13.30 - Unspecified hydronephrosis Status: Acute Assessment and Plan: See above. (3) Medullary nephrocalcinosis: Code(s): E83.59 - Other disorders of calcium metabolism; N29 - Other disorders of kidney and ureter in diseases classified elsewhere Status: Acute Assessment and Plan: See above. (4) Abnormal urinalysis: Code(s): R82.90 - Unspecified abnormal findings in urine Status: Acute Assessment and Plan: Patient here with medullary nephrocalcinosis, multiple bilateral renal stones, proximal left ureteral stone with complicating hydroureteronephrosis. No current urinary symptoms, however the patient has trace leuk esterase and 6-10 WBC with no epithelial cells. Given yes ureteral stone complication with hydroureteronephrosis, will err on the side of caution and start antibiotics. - UC pending - previous micro reviewed, no previous resistances - started on Ceftriaxone started on 06/10 Plan Diet: Regular, NPO midnight GI Prophylaxis: N/a DVT Prophylaxis: SCDs IV fluids: 1L bolus -> 125 mL/hr Lines/Tubes: pIV Code Status: Full code Prior Studies I have reviewed the following patient records and this information was taken into consideration when formulating the assessment and plan.: previous labs, previous ER visits, previous hospitalizations and previous clinic visits Time Spent with Patient Time with patient: less than 45 minutes Hospitalist MIPS Advance Care Plan I have confirmed that the patient's Advanced Care Plan is present, code status is documented, or surrogate decision maker is listed in patient medical record.: Yes Medication Reconciliation I have utilized all available resources to obtain, update and review the patients current medications (includes all prescriptions, OTC, herbals, cannabis, and nutritional supplements).: Yes
[2025-06-10] MEDS: cefTRIAXone 1 GM in SODIUM CHLORIDE 0.9% IV 50 ML 100 ML IVPB (22:07)
--- NOTE | 2025-06-10 22:12 | WPCEDHO ---
ED Hand Off Checklist All vitals saved:yes IV Site documented:yes All med administrations documented:yes Triage Note Triage Note Pt arrives w/ c/o vomiting and 06/10/25 14:07 abd cramping since 0800 this morning. Allergies Penicillins Allergy (Mild, Verified 06/10/25 16:12) Hives Family History (Last Reviewed 08/21/24 @ 15:59 by Ludmila Fabian, MASONRY CONTRACTOR ADMINISTRATOR) Mother Kidney stone FH: cholecystectomy Other No pertinent family history Active Medications including assessments/comments Hydromorphone HCl (Hydromorphone Hcl Inj (*Crx) 1 Mg/Ml Syr) 1 mg IV PUSH Q3H PRN PRN Reason: Pain Rated 7-10 Last Admin: 06/10/25 22:05 Dose: 1 mg Documented By: ELISEO MAR Pain Assessment Document 06/10/25 22:05 EMW (Rec: 06/10/25 22:05 EMW [id number]) Pain Evaluation Pain Evaluation Assessment Pain Scale Pain Scale Used Numeric (1 - 10) Self Report Pain Assessment Reported Pain Level 8 Pain Score Pain Score 8: Self Report Lactated Ringer's (Lr - Lactated Ringers Iv) 1,000 mls @ 125 mls/hr IV CONT .Q8H [facility] Last Admin: 06/10/25 19:35 Dose: 125 mls/hr Documented By: EMW Infusion/Titration Document 06/10/25 19:35 EMW (Rec: 06/10/25 19:35 EMW [id number]) Intake IV Site Peripheral Access Left Antecubital Container Volume 1,000 Waste Amount 0 Dosing Infusion Rate 125 Cumulative Dose Not Applicable Increase/Decrease Started Elapsed Time Elapsed Time ( 0m minutes) Ceftriaxone Sodium 1 gm/ (Sodium Chloride) 50 mls @ 100 mls/hr IVPB Q24H [facility] Last Admin: 06/10/25 22:07 Dose: 100 mls/hr Documented By: EMW Infusion/Titration Document 06/10/25 22:07 EMW (Rec: 06/10/25 22:07 EMW [id number]) Intake IV Site Peripheral Access Left Antecubital Container Volume 50 Waste Amount 0 Dosing Infusion Rate 100 Increase/Decrease Started Elapsed Time Elapsed Time ( 0m minutes) Administered/Completed Medications Discontinued Medications Hydromorphone HCl (Hydromorphone Hcl Inj (*Crx) 1 Mg/Ml Syr) 1 mg IV PUSH ONCE STA Stop: 06/10/25 17:15 Last Admin: 06/10/25 17:23 Dose: 1 mg Documented By: ADELAIDE Lactated Ringer's (Lr - Lactated Ringers Iv) 1,000 mls @ 999 mls/hr IV CONT .Q1H1M STA Stop: 06/10/25 17:49 Last Infusion: 06/10/25 18:10 Dose: Infused Documented By: Admin: 06/10/25 17:09 Dose: 999 mls/hr Documented By: ADELAIDE Ondansetron HCl (Ondansetron Inj 4 Mg/2 Ml Vial) 4 mg IV PUSH ONCE STA Stop: 06/10/25 17:15 Last Admin: 06/10/25 17:21 Dose: 4 mg Documented By: ADELAIDE Interventions/Assessments IV / Saline Lock, Insert Start: 06/10/25 14:03 Freq: STAT Status: Active Protocol: Document 06/10/25 16:00 CFG (Rec: 06/10/25 16:12 [facility] [place] [id number]) IV Assessment Peripheral Access Left Antecubital IV Catheter Access Initiated IV Insertion Date 06/10/25 IV Insertion Time 16:00 Catheter Gauge 20 IV Insertion 1 Attempts Ultrasound Used for No Placement IV Site Assessment WNL IV Care and WNL Maintenance PA: Gastrointestinal Assessment Start: 06/10/25 14:02 Freq: Status: Complete Protocol: Document 06/10/25 16:00 CFG (Rec: 06/10/25 16:12 [facility] [place] [id number]) GI Assessment Gastrointestinal Nausea,Pain,Vomiting Symptoms Description Flat,Soft All Quadrants Bowel Sounds Active Pattern Normal Date of Last Bowel 06/10/25 Movement Last Vital Signs Temperature 98 F 06/10/25 22:01 Pulse Rate 63 06/10/25 22:01 Respiratory Rate 10 L 06/10/25 22:01 Pulse Oximetry 99 06/10/25 22:01 Blood Pressure 110/74 06/10/25 22:01 Blood Pressure Mean 87 06/10/25 22:01 Blood Pressure Position Sitting 06/10/25 19:36 Oxygen Delivery Room Air 06/10/25 14:07 Weight 58.4 kg 06/10/25 14:07 Last Result - Abnormals Only RBC 3.93 M/mm3 (4.2-5.4) L 06/10/25 16:07 Hgb 11.6 g/dL (12.0-15.0) L 06/10/25 16:07 Hct 35.9 % (37.0-47.0) L 06/10/25 16:07 Neut % (Auto) 81.3 % (45.5-73.1) H 06/10/25 16:07 Lymph % (Auto) 14.1 % (18.3-44.2) L 06/10/25 16:07 Absolute Neuts (auto) 6.8 K/mm3 (1.3-6.7) H 06/10/25 16:07 Chloride 109 mmol/L (98-107) H 06/10/25 16:07 Anion Gap 3 mmol/L (4-12) L 06/10/25 16:07 Creatinine 0.69 mg/dL (0.7-1.0) L 06/10/25 16:07 Urine Protein 2+ mg/dL (Negative) H 06/10/25 16:27 Ur Blood (Man) 3+ (Negative) H 06/10/25 16:27 Leukocyte Esterase Rfl Trace ZACH/UL (Negative) H 06/10/25 16:27 Urine RBC >100 /hpf (0-2) H 06/10/25 16:27 Urine WBC 6-10 /hpf (0-3) H 06/10/25 16:27 Most Recent Suicide Severity Rating Suicide Severity Rating NO RISK INDICATED 06/10/25 14:07
--- NOTE | 2025-06-10 22:25 | ADMGEN ---
This patient, Erum Wallis, was admitted to [facility] Surg Room 325-01. Patient/family oriented to hospital policies and general routines including ID bracelet, bed and alarms, visiting hours, pain management, procedures, bathroom and other care routines, personal items, smoking policy, room service/diet, and visiting hours. Information on how to activate the Rapid Response Team has been discussed. Patient/Family are encouraged to report perceived risks to care and to ask questions if they do not understand what they are told or what they should do.
[2025-06-11] VITALS (9 sets, daily range): BP systolic 99–132; BP diastolic 55–70; PULSE 60–86; RESP 12–18; TEMP 36–36.6; O2SAT 95–100
[2025-06-11] MEDS: HYDROmorphone HCL INJ (*CRX) 1 MG/ML SYR IV PUSH ×6 (01:14→22:52)
[2025-06-11] MEDS: ONDANSETRON INJ 4 MG/2 ML VIAL IV PUSH ×2 (02:40→10:41)
[2025-06-11] MEDS: LACTATED RINGERS 1,000 ML 125 ML IV CONT ×2 (04:37→17:57)
[2025-06-11 07:02] LABS: Hematocrit 31.7 % (37.0-47.0); Hemoglobin 9.9 g/dL (12.0-15.0); Immature Granulocyte Percent A 0.3 % (0-0.5); Lymphocytes Absolute Auto 1.79 K/mm3 (0.9-3.2); Mean Corpuscular HGB Conc 31.2 g/dl (32-36); Mean Corpuscular Hemoglobin 29.8 pg (26-34); Mean Corpuscular Volume 95.5 fl (80-100); Nucleated Red Blood Cells Absolute Auto 0.000 K/mm3 (0.0-0.012); Nucleated Red Blood Cells Perc 0.0 % (0.0-0.2); Platelet Count Result 175 k/mm3 (150-375); Red Blood Count 3.32 M/mm3 (4.2-5.4); White Blood Count 6.2 K/mm3 (4.5-10.0)
[2025-06-11 07:15] LABS: Anion Gap 4 mmol/L (4-12); Blood Urea Nitrogen 13 mg/dL (7-17); Calcium 8.2 mg/dL (8.4-10.2); Carbon Dioxide 27 mmol/L (22-30); Chloride 106 mmol/L (98-107); Estimated CRCL calculation 76 ml/min; Estimated Glomerular Filt Rate > 60; Glucose 95 mg/dL (65-110); Potassium 4.0 mmol/L (3.4-5.0); Sodium 137 mmol/L (137-145)
--- NOTE | 2025-06-11 07:25 | WPDURCON ---
Assessment and Plan Assessment and plan (1) Calculus, ureteral: Code(s): N20.1 - Calculus of ureter Status: Acute (2) Medullary nephrocalcinosis: Code(s): E83.59 - Other disorders of calcium metabolism; N29 - Other disorders of kidney and ureter in diseases classified elsewhere Status: Acute Plan 35yF with history of urolithiasis and medullary calcinosis found to have a 1.1 cm left proximal ureteral stone - Admitted to hospitalist, appreciate assistance with medical management - NPO since midnight, IVF - To OR today for cystoscopy, left retrograde pyelogram, left ureteral stent - The risks, benefits, and alternatives were thoroughly discussed with the patient. She understands that we will not be treating the stone today. The modus operandi of the procedure as well as the risks of the procedure were outlined, including but not limited to pain, bleeding, infection, and potential damage to surrounding structures such as the urethra, bladder, ureter, or kidney. Additionally, the risks of dysuria, hematuria, the inability to reach the stone, inability to place a ureteral stent necessitating placement of a nephrostomy tube, and the potential need for subsequent procedures were reviewed. The necessity of removing any ureteral stent, if placed, was emphasized to the patient. I explained that failure to remove the stent could result in long-term complications to the kidney, ureter, and the genitourinary tract, including but not limited to permanent kidney damage or kidney failure. I also reviewed the temporary nature of ureteral stents, noting that they can cause discomfort similar to renal colic and may lead to irritative voiding symptoms as well as hematuria. The patient was informed that stents are not permanent and must be either removed or exchanged periodically to prevent encrustation and irreversible kidney damage. The patient indicated full understanding of these risks and requirements. The patient has verbally acknowledged comprehension and has agreed to proceed with the surgery. - Urology will arrange for patient's definitive stone management surgery in the upcoming weeks after a period of passive ureteral dilation - Patient would benefit from outpatient referral to nephrology for medical management of medullary calcinosis. - From a urology standpoint, the patient may be able to be discharged home following her procedure if her pain and nausea are controlled, she is ambulating, voiding spontaneously, and tolerating oral intake - Remainder of management per primary Urology Consult Note HPI Date Seen: 06/11/25 Requesting Physician: Fredrick Venegas MD Primary Care Provider: BUSINESS REPORTER PHYSICIAN Consult Narrative Narrative: Erum Wallis is a 35 year old female with history of urolithiasis, medullary calcinosis who presented to the hospital overnight for left flank pain. She reports associated nausea and vomiting but denies associated fevers, chills, lightheadedness, dizziness, gross hematuria, dysuria, chest pain, shortness of breath. Workup including CT scan showed a large 1.1 cm left proximal ureteral stone with associated hydronephrosis. The patient has had endoscopic surgery for kidney stones including placement of ureteral stents in the past. She reports she was last treated by a urologist at [facility] in circa 2022 but is not continuing to follow with them. She was last seen by one of my colleagues circa 2012. She states she does not have a ac/dc rewinder. The patient has been NPO since midnight. Review of Systems Review of Systems: A 12 point review of systems was performed and is negative except as noted in HPI. [facility] Past Medical History Medical History Kidney stone UTI (urinary tract infection) Request for sterilization History of pre-eclampsia Surgical History Surgical History H/O lithotripsy Hx of cholecystectomy Family History Family History Mother Kidney stone FH: cholecystectomy Other No pertinent family history Social History Social History Smoking status: Never smoker Second hand tobacco smoke exposure: No Alcohol intake: never Substance use: never Lack of Transportation: No Lack of Food: Never True Current Housing: I Have Housing Concerned About Future Housing: No Difficulty Paying Gas/Electric Bills: No Difficulty Paying for Meds: No Currently Unemployed: No Education: High School Diploma/GED Difficulty w/ Childcare or Family Care: No Gender identity (if verbalized by the patient): Female Spiritual care concerns: No Meds Home Medications and Allergies Home Medications ?Medication ?Instructions ?Recorded ?Confirmed ?Type No Home Medications 06/11/25 06/11/25 History Allergies Allergy/AdvReac Type Severity Reaction Status Date / Time Penicillins Allergy Mild Hives Verified 06/10/25 22:54 Vital Signs Vital Signs - 24 hr 06/10/25 14:07 06/10/25 16:42 06/10/25 17:39 Temperature 36.4 C Pulse Rate 76 82 72 Respiratory Rate 18 14 18 Blood Pressure 126/67 106/70 108/70 Pulse Oximetry 99 100 97 Oxygen Delivery Room Air 06/10/25 18:01 06/10/25 18:24 06/10/25 19:02 Temperature Pulse Rate 72 68 83 Respiratory Rate 16 17 14 Blood Pressure 121/65 114/64 Pulse Oximetry 99 97 Oxygen Delivery 06/10/25 19:15 06/10/25 19:30 06/10/25 19:35 Temperature Pulse Rate 65 91 69 Respiratory Rate 17 23 H 12 Blood Pressure 113/60 Pulse Oximetry 97 97 98 Oxygen Delivery 06/10/25 19:36 06/10/25 19:45 06/10/25 20:00 Temperature 36.8 C Pulse Rate 67 68 61 Respiratory Rate 12 15 15 Blood Pressure 113/60 Pulse Oximetry 98 98 98 Oxygen Delivery 06/10/25 20:01 06/10/25 20:15 06/10/25 20:30 Temperature Pulse Rate 81 70 70 Respiratory Rate 19 13 17 Blood Pressure 113/73 Pulse Oximetry 98 97 98 Oxygen Delivery 06/10/25 20:45 06/10/25 21:00 06/10/25 21:01 Temperature Pulse Rate 74 68 68 Respiratory Rate 19 16 17 Blood Pressure 111/75 Pulse Oximetry 98 99 99 Oxygen Delivery 06/10/25 21:15 06/10/25 21:30 06/10/25 21:45 Temperature Pulse Rate 62 70 71 Respiratory Rate 13 12 24 H Blood Pressure Pulse Oximetry 98 98 99 Oxygen Delivery 06/10/25 22:00 06/10/25 22:01 06/10/25 22:24 Temperature 36.6 C 36.6 C Pulse Rate 78 63 77 Respiratory Rate 24 H 10 L 16 Blood Pressure 110/74 120/81 Pulse Oximetry 98 99 100 Oxygen Delivery 06/10/25 22:35 06/11/25 06:00 Temperature 36.6 C 36.4 C L Pulse Rate 68 Respiratory Rate 18 Blood Pressure 109/63 Pulse Oximetry 95 Oxygen Delivery Exam Narrative: General: Alert, no acute distress Head: Normocephalic, atraumatic Eyes: Extraocular movements intact Neck: No JVD, trachea midline Respiratory: Symmetric chest rise, nonlabored breathing on room air CV: Normal rate, adequate peripheral perfusion Abdomen: Soft, nontender, nondistended : Left CVAT Skin: Warm/dry Extremities: No peripheral edema, no cyanosis Neuro: No focal deficits Psych: Answers questions appropriately, appropriate mood Results Labs 06/11/25 06:10 06/11/25 06:10 Labs: Short CBC 06/10/25 06/11/25 Range/Units 16:07 06:10 WBC 8.4 6.2 (4.5-10.0) K/mm3 Hgb 11.6 L 9.9 L (12.0-15.0) g/dL Hct 35.9 L 31.7 L (37.0-47.0) % Plt Count 219 175 (150-375) k/mm3 BMP 06/10/25 06/11/25 16:07 06:10 Sodium 138 137 Potassium 4.2 4.0 Chloride 109 H 106 Carbon Dioxide 26 27 BUN 14 13 Creatinine 0.69 L 0.75 Glucose 98 95 Calcium 9.1 8.2 L Liver Function 06/10/25 Range/Units 16:07 Total Bilirubin 0.6 (0.2-1.3) mg/dL AST 21 (14-36) U/L ALT 18 (6-35) U/L Alkaline Phosphatase 71 (38-126) U/L Albumin 3.9 (3.5-5.1) g/dL Urine 06/10/25 Range/Units 16:27 Urine Color Yellow (Yellow) Urine Appearance Clear (Clear) Urine pH 6.0 (5.0-9.0) Ur Specific [place] 1.015 (1.001-1.035) Urine Protein 2+ H (Negative) mg/dL Urine Glucose (UA) Negative (Negative) mg/dL
--- NOTE | 2025-06-11 08:10 | WPDHPUPDATE1 ---
History and Physical Update Update Date/Time: 06/11/25 08:10 History and Physical has been reviewed, including an updated exam of the patient. There are NO changes in the patient's condition. Risks, benefits, and alternatives have been discussed and questions answered. Patient agrees to proceed with procedure.
--- NOTE | 2025-06-11 13:39 | P.DS_ITS ---
DS: Admitting Diagnosis Discharge Date 06/11/2025 DS: Discharge Diagnosis Discharge Diagnosis (1) Calculus, ureteral: Code(s): N20.1 - Calculus of ureter Status: Acute Assessment and Plan: Patient here with nausea, vomiting, and abdominal pain starting at 8:00 a.m. on 06/10. CT performed on 06/10 significant for bilateral medullary nephrocalcinosis and multiple bilateral renal stones proximal left ureteral stone with mild to moderate left hydroureteronephrosis. Patient has history of kidney stones, last occurrence in 2022 which required lithotripsy and stent placement. No current endorsement of systemic symptoms. UA showed soft indicators of UTI, see below. Urology consulted. ED provider spoke with on- call urologist, plan for cystoscopy on 06/11. - cystoscopy planned for 06 11, NPO at midnight - urology consulted - pain medication p.r.n.: Tylenol, [place], Dilaudid - IV fluids - treatment of possible UTI (2) Hydroureteronephrosis: Code(s): N13.30 - Unspecified hydronephrosis Status: Acute Assessment and Plan: See above. (3) Medullary nephrocalcinosis: Code(s): E83.59 - Other disorders of calcium metabolism; N29 - Other disorders of kidney and ureter in diseases classified elsewhere Status: Acute Assessment and Plan: See above. (4) Abnormal urinalysis: Code(s): R82.90 - Unspecified abnormal findings in urine Status: Acute Assessment and Plan: Patient here with medullary nephrocalcinosis, multiple bilateral renal stones, proximal left ureteral stone with complicating hydroureteronephrosis. No current urinary symptoms, however the patient has trace leuk esterase and 6-10 WBC with no epithelial cells. Given yes ureteral stone complication with hydroureteronephrosis, will err on the side of caution and start antibiotics. - UC pending - previous micro reviewed, no previous resistances - started on Ceftriaxone started on 06/10 Plan Diet: Regular, NPO midnight GI Prophylaxis: N/a DVT Prophylaxis: SCDs IV fluids: 1L bolus -> 125 mL/hr Lines/Tubes: pIV Code Status: Full code DS: Summary Time Spent with Patient Time attestation: Total time spent providing and/or coordinating discharge services: Exam Const: General: comfortable and no acute distress Other: , female, young, nontoxic appearance HENMT: Face/Nose/Sinus: Normal nares present Mouth: Yes moist mucous membranes Eyes: General: appearance normal, both eyes and all related structures Sc azra: sclerae normal Pupils: Equal, round and reactive pupils present EOM: EOMs intact bilaterally Resp: Effort & Inspection: normal respiratory effort Auscultation: clear to auscultation bilaterally Cardio: Rate: regular rate Rhythm: regular rhythm Other: S1-S2 present without murmur, rub, ectopy GI: Other: Tenderness in the lower quadrants, more so on the left. Abdomen otherwise soft, nondistended. Normal bowel sounds in all quadrants. : Other: + left CVA tenderness Skin: General skin exam: normal color and no rashes or lesions noted Wounds: no wounds Neuro: Cranial nerves: Yes Equal, round and reactive pupils present Speech: normal speech Motor exam (neuro): 5/5 motor strength present throughout Sensory Exam: normal sensation Other: A&O x4 Extrem: General: normal to inspection Psych: Mental Status: mental status grossly normal Affect: normal affect Other: Good insight and judgment, pleasant DS: Data Data Completed and Pending Labs on day of discharge: Labs from last 24 hours 06/11/25 06/10/25 06/10/25 06:10 16:31 16:27 WBC 6.2 RBC 3.32 L Hgb 9.9 L Hct 31.7 L MCV 95.5 MCH 29.8 MCHC 31.2 L RDW 13.2 Plt Count 175 MPV 10.6 H Immature Gran % (Auto) 0.3 Neut % (Auto) 60.5 Lymph % (Auto) 29.1 [place] % (Auto) 8.0 Eos % (Auto) 1.6 Baso % (Auto) 0.5 Lymph # (Auto) 1.79 [place] # (Auto) 0.5 Eos # (Auto) 0.1 Baso # (Auto) 0.0 Abs Immat Gran (auto) 0.02 Absolute Neuts (auto) 3.7 Absolute Nucleated RBC 0.000 Nucleated RBC % 0.0 Sodium 137 Potassium 4.0 Chloride 106 Carbon Dioxide 27 Anion Gap 4 BUN 13 Creatinine 0.75 Estim Creat Clear Calc 76 Estimated GFR > 60 Glucose 95 Calcium 8.2 L Total Bilirubin AST ALT Alkaline Phosphatase Total Protein Albumin Lipase Urine Color Yellow Urine Appearance Clear Urine pH 6.0 Ur Specific [place] 1.015 Urine Protein 2+ H Urine Glucose (UA) Negative Urine Ketones Negative Ur Blood (Man) 3+ H Urine Nitrate Negative Urine Bilirubin Negative Urine Urobilinogen 0.2 Leukocyte Esterase Rfl Trace H Urine RBC >100 H Urine WBC 6-10 H Ur Squamous Epith Cells None seen Urine Bacteria None seen Urine Casts 0-2 POC Urine HCG, Qual Negative Influenza A (RT-PCR) Influenza B (RT-PCR) RSV (RT-PCR) SARS-CoV-2 RNA (RT-PCR) 06/10/25 16:07 WBC 8.4 RBC 3.93 L Hgb 11.6 L Hct 35.9 L MCV 91.3 MCH 29.5 MCHC 32.3 RDW 13.2 Plt Count 219 MPV 9.9 Immature Gran % (Auto) 0.2 Neut % (Auto) 81.3 H Lymph % (Auto) 14.1 L [place] % (Auto) 4.0 Eos % (Auto) 0.2 Baso % (Auto) 0.2 Lymph # (Auto) 1.19 [place] # (Auto) 0.3 Eos # (Auto) 0.0 Baso # (Auto) 0.0 Abs Immat Gran (auto) 0.02 Absolute Neuts (auto) 6.8 H Absolute Nucleated RBC 0.000 Nucleated RBC % 0.0 Sodium 138 Potassium 4.2 Chloride 109 H Carbon Dioxide 26 Anion Gap 3 L BUN 14 Creatinine 0.69 L Estim Creat Clear Calc 82 Estimated GFR > 60 Glucose 98 Calcium 9.1 Total Bilirubin 0.6 AST 21 ALT 18 Alkaline Phosphatase 71 Total Protein 6.9 Albumin 3.9 Lipase 87 Urine Color Urine Appearance Urine pH Ur Specific [place] Urine Protein Urine Glucose (UA) Urine Ketones Ur Blood (Man) Urine Nitrate Urine Bilirubin Urine Urobilinogen Leukocyte Esterase Rfl Urine RBC Urine WBC Ur Squamous Epith Cells Urine Bacteria Urine Casts POC Urine HCG, Qual Influenza A (RT-PCR) Negative Influenza B (RT-PCR) Negative RSV (RT-PCR) Negative SARS-CoV-2 RNA (RT-PCR) Negative Discharge Plan Discharge Consulting providers: Finesse Torre; Cayetano Nowak; Dieter Raines Patient Language: Mauritanian Follow-up/Referrals: Brayden Epstein MD [Physician, Urology] Matheus Jones MD [Physician, Nephrology] Referral Note: Call to make appointment Discharge Medications: No Action No Home Medications Date of admission: 06/10/25 18:55 Primary Care Provider: PHYSICIAN,RADIO TIME BUYER Admitting Provider: Fredrick Venegas Attending physician on admission: Fredrick Venegas Condition: Stable Quality VTE Prophylaxis VTE prophylaxis: mechanical ordered
[2025-06-11] MEDS: LACTATED RINGERS 1,000 ML 30 ML IV CONT (13:43)
--- NOTE | 2025-06-11 14:17 | WPDANESEPPF ---
Anes - Initial Pre Proc Eval Procedure: Operation Date: 06/11/25 14:00 Proposed Procedures p Cystoscopy, Left Retrograde Pyelogram, Left Stent Placement - Brayden Epstein MD Date/Time: 06/11/25 14:17 Surgeon: Fredrick Venegas MD Pre Op Diagnosis: Ureteral Calculi Patient Data Age: 35 Gender: F Height: 1.6 m Weight: 59.7 kg Last Vital Signs Temp 36.6 C 06/11/25 13:50 Pulse 60 06/11/25 13:50 Resp 16 06/11/25 13:50 BP 109/65 06/11/25 13:50 Pulse Ox 98 06/11/25 13:50 O2 Del Method Room Air 06/11/25 13:50 Allergies Allergy/AdvReac Type Severity Reaction Status Date / Time Penicillins Allergy Mild Hives Verified 06/11/25 14:12 Home Medications ?Medication ?Instructions ?Recorded ?Confirmed ?Type No Home Medications 06/11/25 06/11/25 History Laboratory Tests 06/10/25 06/10/25 06/10/25 16:07 16:27 16:31 WBC 8.4 K/mm3 (4.5-10.0) RBC 3.93 L M/mm3 (4.2-5.4) Hgb 11.6 L g/dL (12.0-15.0) Hct 35.9 L % (37.0-47.0) MCV 91.3 fl (80-100) MCH 29.5 pg (26-34) MCHC 32.3 g/dl (32-36) RDW 13.2 % (11.5-14.5) Plt Count 219 k/mm3 (150-375) MPV 9.9 fl (7.4-10.4) Immature Gran % (Auto) 0.2 % (0-0.5) Neut % (Auto) 81.3 H % (45.5-73.1) Lymph % (Auto) 14.1 L % (18.3-44.2) [place] % (Auto) 4.0 % (2.6-8.5) Eos % (Auto) 0.2 % (0-4.4) Baso % (Auto) 0.2 % (0.2-1.2) Lymph # (Auto) 1.19 K/mm3 (0.9-3.2) [place] # (Auto) 0.3 K/mm3 (0.1-0.6) Eos # (Auto) 0.0 K/mm3 (0-0.3) Baso # (Auto) 0.0 K/mm3 (0.0-0.1) Abs Immat Gran (auto) 0.02 K/mm3 (0.00-0.031) Absolute Neuts (auto) 6.8 H K/mm3 (1.3-6.7) Absolute Nucleated RBC 0.000 K/mm3 (0.0-0.012) Nucleated RBC % 0.0 % (0.0-0.2) Sodium 138 mmol/L (137-145) Potassium 4.2 mmol/L (3.4-5.0) Chloride 109 H mmol/L (98-107) Carbon Dioxide 26 mmol/L (22-30) Anion Gap 3 L mmol/L (4-12) BUN 14 mg/dL (7-17) Creatinine 0.69 L mg/dL (0.7-1.0) Estim Creat Clear Calc 82 ml/min Estimated GFR > 60 (59 - ) Glucose 98 mg/dL (65-110) Calcium 9.1 mg/dL (8.4-10.2) Total Bilirubin 0.6 mg/dL (0.2-1.3) AST 21 U/L (14-36) ALT 18 U/L (6-35) Alkaline Phosphatase 71 U/L (38-126) Total Protein 6.9 g/dL (6.3-8.2) Albumin 3.9 g/dL (3.5-5.1) Lipase 87 U/L (23-300) Urine Color Yellow (Yellow) Urine Appearance Clear (Clear) Urine pH 6.0 (5.0-9.0) Ur Specific [place] 1.015 (1.001-1.035) Urine Protein 2+ H mg/dL (Negative) Urine Glucose (UA) Negative mg/dL (Negative) Urine Ketones Negative mg/dL (Negative) Ur Blood (Man) 3+ H (Negative) Urine Nitrate Negative (Negative) Urine Bilirubin Negative (Negative) Urine Urobilinogen 0.2 mg/dL (<2.0) Leukocyte Esterase Rfl Trace H ZACH/UL (Negative) Urine RBC >100 H /hpf (0-2) Urine WBC 6-10 H /hpf (0-3) Ur Squamous Epith Cells None seen /hpf (Few) Urine Bacteria None seen /hpf Urine Casts 0-2 POC Urine HCG, Qual Negative (Negative) Influenza A (RT-PCR) Negative (Negative) Influenza B (RT-PCR) Negative (Negative) RSV (RT-PCR) Negative (Negative) SARS-CoV-2 RNA (RT-PCR) Negative (Negative) 06/11/25 06:10 WBC 6.2 K/mm3 (4.5-10.0) RBC 3.32 L M/mm3 (4.2-5.4) Hgb 9.9 L g/dL (12.0-15.0) Hct 31.7 L % (37.0-47.0) MCV 95.5 fl (80-100) MCH 29.8 pg (26-34) MCHC 31.2 L g/dl (32-36) RDW 13.2 % (11.5-14.5) Plt Count 175 k/mm3 (150-375) MPV 10.6 H fl (7.4-10.4) Immature Gran % (Auto) 0.3 % (0-0.5) Neut % (Auto) 60.5 % (45.5-73.1) Lymph % (Auto) 29.1 % (18.3-44.2) [place] % (Auto) 8.0 % (2.6-8.5) Eos % (Auto) 1.6 % (0-4.4) Baso % (Auto) 0.5 % (0.2-1.2) Lymph # (Auto) 1.79 K/mm3 (0.9-3.2) [place] # (Auto) 0.5 K/mm3 (0.1-0.6) Eos # (Auto) 0.1 K/mm3 (0-0.3) Baso # (Auto) 0.0 K/mm3 (0.0-0.1) Abs Immat Gran (auto) 0.02 K/mm3 (0.00-0.031) Absolute Neuts (auto) 3.7 K/mm3 (1.3-6.7) Absolute Nucleated RBC 0.000 K/mm3 (0.0-0.012) Nucleated RBC % 0.0 % (0.0-0.2) Sodium 137 mmol/L (137-145) Potassium 4.0 mmol/L (3.4-5.0) Chloride 106 mmol/L (98-107) Carbon Dioxide 27 mmol/L (22-30) Anion Gap 4 mmol/L (4-12) BUN 13 mg/dL (7-17) Creatinine 0.75 mg/dL (0.7-1.0) Estim Creat Clear Calc 76 ml/min Estimated GFR > 60 (59 - ) Glucose 95 mg/dL (65-110) Calcium 8.2 L mg/dL (8.4-10.2) Total Bilirubin AST ALT Alkaline Phosphatase Total Protein Albumin Lipase Urine Color Urine Appearance Urine pH Ur Specific [place] Urine Protein Urine Glucose (UA) Urine Ketones Ur Blood (Man) Urine Nitrate Urine Bilirubin Urine Urobilinogen Leukocyte Esterase Rfl Urine RBC Urine WBC Ur Squamous Epith Cells Urine Bacteria Urine Casts POC Urine HCG, Qual Influenza A (RT-PCR) Influenza B (RT-PCR) RSV (RT-PCR) SARS-CoV-2 RNA (RT-PCR) HCG: negative Patient hx anesthesia problems: none Family hx anesthesia problems: none Results Review: All pre-operative results and documents have been reviewed as part of the pre-operative evaluation. [facility] Past Medical History Medical History Kidney stone UTI (urinary tract infection) Request for sterilization History of pre-eclampsia Surgical History Surgical History H/O lithotripsy Hx of cholecystectomy Family History Family History Mother Kidney stone FH: cholecystectomy Other No pertinent family history Social History Social History Smoking status: Never smoker Second hand tobacco smoke exposure: No Alcohol intake: never Substance use: never Lack of Transportation: No Lack of Food: Never True Current Housing: I Have Housing Concerned About Future Housing: No Difficulty Paying Gas/Electric Bills: No Difficulty Paying for Meds: No Currently Unemployed: No Education: High School Diploma/GED Difficulty w/ Childcare or Family Care: No Gender identity (if verbalized by the patient): Female Spiritual care concerns: No Anes - Eval Final PreProcedure Day of Procedure 06/11/25 14:17 Patient weight: normal Heart: regular rate and rhythm Lungs: clear to auscultation Airway: Mallampati scale class 1 Neurological: alert and oriented Last oral intake: >/= 8 hours ASA classification: II Emergent: no Anesthetic plan: proceed Anesthesia type and monitoring: general LMA and standard monitoring Results Review: All pre-operative results and documents have been reviewed as part of the pre-operative evaluation. Informed Consent: The patient's anesthetic plan and its attendant risks and benefits were discussed with the patient/family/POA. Questions were solicited and answers provided to the satisfaction of the patient/family/POA.
[2025-06-11] MEDS: ceFAZolin 2 GM in SODIUM CHLORIDE 0.9% IV 50 ML 100 ML IVPB (14:25)
--- NOTE | 2025-06-11 14:53 | P.OP_ITS ---
Procedure Note - Detailed Date of Procedure 06/11/25 Pre-op Diagnosis Left ureteral stone Post-op Diagnosis Same Procedure Performed 1. Cystoscopy 2. Left retrograde pyelogram with intraoperative interpretation 3. Stone manipulation without extraction 4. Left ureteral stent placement Surgeon Brayden Epstein MD Anesthesia General Findings 1. Cystourethroscopy revealed orthotopic ureteral orifices bilaterally with no suspicious lesions, tumors, active bleeding, or stones in the lower urinary tract. 2. Left retrograde pyelogram using a 50 50 mixture of contrast and saline showed a filling defect in the left proximal ureter with minimal contrast extending beyond this, suggestive of an impacted stone. I was able to eventually negotiate the wire proximal to this stone, during which time the stone was felt and seen under fluoroscopy to be manipulated but not extracted. 3. Urine from left kidney was obtained and noted to be slightly blood tinged but not purulent and was sent for culture 4. Successful left ureteral stent placement without strings attached Description of Procedure After informed consent was obtained, the patient was brought back to the operating theatre and placed in the supine position on the operating table. Pre-operative antibiotics were confirmed to have been administered. Anesthesia was induced. The patient was moved into the dorsal lithotomy position and prepped and draped in the standard sterile fashion for an endoscopic case. During this time, I was informed by the operating room staff that there was about 20 mL of old appearing blood draining through the vaginal vault. There was no active bleeding noted. No further bleeding was noted after this point. All pressure points were padded. Bilateral sequential compression devices were on and noted to be functioning. A formal timeout was performed with Dr. Epstein in attendance to confirm the correct patient, site/laterality, and procedure and all were in agreement to proceed. To begin with, I atraumatically advanced a lubricated 22-U[place]ayan rigid cystoscope transurethrally into the patient's bladder. Pancystoscopy was performed with findings as noted above. Attention was then turned to the left ureteral orifice, which was gently cannulated with a Sensor wire which was advanced up to the level of the left distal ureter under fluoroscopy. Over top of the wire, a 5- [place] open ended catheter was advanced to the level of the distal ureter. The wire was removed keeping the open-ended catheter in place and a left retrograde pyelogram was performed using a 50:50 mixture of saline and contrast with findings as noted above. The wire was then replaced through the open-ended catheter and was attempted to be advanced past the left proximal stone into the kidney, but it was coiling against the stone. I then advanced the open-ended catheter just distal to the stone and was eventually able to negotiate the Sensor wire proximal to the stone and into the kidney. During this time the stone was felt and seen under fluoroscopy to be manipulated but not extracted. I then advanced the open-ended catheter into the kidney and removed the Sensor wire and collected left kidney urine as a specimen to be sent for culture; the urine was slightly blood tinged but not purulent. I then used the Seldinger maneuver to remove the open-ended catheter while leaving the Sensor wire in place. Over top of the wire, a 6-[place] x 24 cm JJ stent was advanced and the pusher was used to deploy the stent in place, confirming a good proximal curl in the left kidney under fluoroscopy and a good distal curl in the bladder under both fluoroscopic and direct cystoscopic vision. The patient's bladder was then emptied and the cystoscope was removed, essentially concluding the case. At the conclusion of the case all sponge, instrument, and sharp counts were correct x 2. The patient was then awoken from anesthesia and taken to the recovery room in stable condition. The patient tolerated the procedure well and there were no immediate complications noted. Disposition: The patient will be monitored in the PACU and then be transferred back to her hospital room after clearing PACU protocol. From a urology standpoint, if the patient's pain is controlled, she is tolerating oral intake, voiding spontaneously, ambulating, she may be discharged home later today. Urology will arrange for her follow-up definitive stone treatment surgery in the [facility] after a period of passive ureteral dilation with the ureteral stent in place. The patient's mother was provided with an update following the surgery all questions were answered to her satisfaction at the conclusion of our discussion.
--- NOTE | 2025-06-11 14:57 | SUR.OPER ---
Patient began bleeding vaginally as soon as she was put up into stirrup. Approximately 20cc of mucous-tinged blood was noted. Pressure was applied by the surgical team and bleeding stopped, although vagina continued to ooze small amounts of blood throughout the case. Surgeon made aware.
--- NOTE | 2025-06-11 14:58 | SUR.OPER ---
Left Kidney Urine specimen was given to [facility] Denisse at 1452 to deliver to Microbiology; Denisse passed specimen off to Tod at 1607
[2025-06-11] MEDS: HYDROcodone/acetaminophen (*CRX) 5-325 MG TABLET 1 TAB PO ×2 (16:20→20:31)
[2025-06-11] MEDS: cefTRIAXone 1 GM in SODIUM CHLORIDE 0.9% IV 50 ML 100 ML IVPB (20:36)
[2025-06-12] MEDS: HYDROcodone/acetaminophen (*CRX) 5-325 MG TABLET 1 TAB PO ×3 (02:48→13:12)
[2025-06-12] MEDS: LACTATED RINGERS 1,000 ML 125 ML IV CONT ×2 (02:49→09:34)
[2025-06-12 04:29] VITALS: BP 99/63; PULSE 79; RESP 18; TEMP 36.3; O2SAT 100
--- NOTE | 2025-06-12 06:47 | P.PNIM_ITS ---
Assessment and Plan Assessment and Plan (1) Calculus, ureteral: Code(s): N20.1 - Calculus of ureter Status: Acute Assessment and Plan: Patient here with nausea, vomiting, and abdominal pain starting at 8:00 a.m. on 06/10. CT performed on 06/10 significant for bilateral medullary nephrocalcinosis and multiple bilateral renal stones proximal left ureteral stone with mild to moderate left hydroureteronephrosis. Patient has history of kidney stones, last occurrence in 2022 which required lithotripsy and stent placement. No current endorsement of systemic symptoms. UA showed soft indicators of UTI, see below. Urology consulted. ED provider spoke with on- call urologist, plan for cystoscopy on 06/11. - cystoscopy planned for 06/11, NPO at midnight - urology consulted - pain medication p.r.n.: Tylenol, [place], Dilaudid - IV fluids - treatment of possible UTI (2) Hydroureteronephrosis: Code(s): N13.30 - Unspecified hydronephrosis Status: Acute Assessment and Plan: See above. (3) Medullary nephrocalcinosis: Code(s): E83.59 - Other disorders of calcium metabolism; N29 - Other disorders of kidney and ureter in diseases classified elsewhere Status: Acute Assessment and Plan: See above. (4) Abnormal urinalysis: Code(s): R82.90 - Unspecified abnormal findings in urine Status: Acute Assessment and Plan: Patient here with medullary nephrocalcinosis, multiple bilateral renal stones, proximal left ureteral stone with complicating hydroureteronephrosis. No current urinary symptoms, however the patient has trace leuk esterase and 6-10 WBC with no epithelial cells. Given yes ureteral stone complication with hydroureteronephrosis, will err on the side of caution and start antibiotics. - UC pending - previous micro reviewed, no previous resistances - started on Ceftriaxone started on 06/10 Plan Diet: Regular, NPO midnight GI Prophylaxis: N/a DVT Prophylaxis: SCDs IV fluids: 1L bolus -> 125 mL/hr Lines/Tubes: pIV Code Status: Full code Subjective Date/time seen: 06/11/25 11:00 Interval history: Patient seen and examined at bedside. Plan was to undergo cystoscopy on 06/11 with hopeful discharge postprocedure same day pending patient's ability to eat/drink, along with minimal pain and nausea. Patient tolerated the procedure without any complications. Review of Systems Review of Systems: All systems reviewed & are unremarkable except as noted in HPI and below Exam Const: Other: , female, young, nontoxic appearance Cardio: Other: S1-S2 present without murmur, rub, ectopy GI: Other: Tenderness in the lower quadrants, more so on the left. Abdomen otherwise soft, nondistended. Normal bowel sounds in all quadrants. : Other: + left CVA tenderness Neuro: Other: A&O x4 Psych: Other: Good insight and judgment, pleasant Objective Data Vital Signs Vital Signs: Vital Signs - 24 hr 06/11/25 08:11 06/11/25 13:50 06/11/25 14:54 Temperature 97.9 F 97.6 F Pulse Rate 60 85 Respiratory Rate 16 14 Blood Pressure 109/65 132/70 Pulse Oximetry 98 100 Oxygen Delivery Room Air Room Air Simple Face Mask Oxygen Flow Rate 8 06/11/25 15:00 06/11/25 15:15 06/11/25 15:30 Temperature Pulse Rate 65 61 67 Respiratory Rate 12 12 12 Blood Pressure 112/67 107/70 112/69 Pulse Oximetry 100 100 100 Oxygen Delivery Simple Face Mask Simple Face Mask Room Air Oxygen Flow Rate 8 8 06/11/25 15:42 06/11/25 20:00 06/11/25 23:45 Temperature 97.1 F L 96.8 F L Pulse Rate 68 86 60 Respiratory Rate 12 18 16 Blood Pressure 111/70 117/57 L 99/55 L Pulse Oximetry 100 99 98 Oxygen Delivery Room Air Oxygen Flow Rate 06/12/25 04:29 Temperature 97.3 F L Pulse Rate 79 Respiratory Rate 18 Blood Pressure 99/63 L Pulse Oximetry 100 Oxygen Delivery Oxygen Flow Rate Intake/Output Intake/Output: Intake & Output 06/09/25 06/10/25 06/11/25 06/12/25 23:59 23:59 23:59 23:59 Intake Total 1050 2622 1000 Balance 1050 2622 1000 Meds/Results Medications: Active Medications Generic Name Dose Route Start Last Admin Trade Name Freq PRN Reason Stop Dose Admin Acetaminophen 650 mg 06/10/25 20:13 Acetaminophen 325 Mg Tablet PO Q6H PRN Mild Pain (1-3) or Fever Hydrocodone Bitart/Acetaminophen 1 tab 06/10/25 20:13 06/12/25 02:48 Hydrocodone/Acetaminophen (*Crx) 5-325 Mg Tablet PO 1 tab Q4H PRN Administration Pain Rated 4-6 Docusate Sodium 100 mg 06/10/25 20:13 Docusate Sodium 100 Mg Capsule PO Q12H PRN Constipation Fentanyl Citrate 25 mcg 06/11/25 13:28 Fentanyl Citrate Inj (*Crx) 100 Mcg/2 Ml Vial IV PUSH Q2M PRN Pain Hydromorphone HCl 1 mg 06/10/25 20:13 06/11/25 22:52 Hydromorphone Hcl Inj (*Crx) 1 Mg/Ml Syr IV PUSH 1 mg Q3H PRN Administration Pain Rated 7-10 Lactated Ringer's 1,000 mls @ 125 mls/hr 06/10/25 18:55 06/12/25 02:49 Lr - Lactated Ringers Iv IV CONT 125 mls/hr .Q8H ANNIE Administration Ceftriaxone Sodium 1 gm/ 50 mls @ 100 mls/hr 06/10/25 21:00 06/11/25 21:06 Sodium Chloride IVPB Infused Q24H ANNIE Infusion Lactated Ringer's 1,000 mls @ 30 mls/hr 06/11/25 13:30 06/11/25 15:42 Lr - Lactated Ringers Iv IV CONT Infused .Q24H ANNIE Infusion Lactated Ringer's 1,000 mls @ 30 mls/hr 06/11/25 13:30 Lr - Lactated Ringers Iv IV CONT .Q24H ANNIE Ondansetron HCl 4 mg 06/10/25 18:55 06/11/25 10:41 Ondansetron Inj 4 Mg/2 Ml Vial IV PUSH 4 mg Q4H PRN Administration Nausea Ondansetron HCl 4 mg 06/11/25 13:28 Ondansetron Inj 4 Mg/2 Ml Vial IV PUSH ONCE PRN Nausea Polyethylene Glycol 17 gm 06/10/25 20:13 Polyethylene Glycol 3350 17 Gm Powd.Pack PO QAM PRN Constipation Radiology Results: ITS Impressions Abdomen/Pelvis CT 06/10/25 18:18 IMPRESSION: 1. Bilateral medullary nephrocalcinosis and multiple bilateral renal stones proximal left ureteral stone with mild to moderate left hydroureteronephrosis. Abdomen X-Ray 06/10/25 19:10 IMPRESSION: Medullary nephrocalcinosis. Nonobstructive bowel gas pattern. Retrograde Pyelogram 06/11/25 15:04 IMPRESSION: 1. Left internal ureteral stent placement. Please refer to real-time procedural findings for details. Labs Labs: Laboratory Results - last 24 hr 06/11/25 06:10 WBC 6.2 RBC 3.32 L Hgb 9.9 L Hct 31.7 L MCV 95.5 MCH 29.8 MCHC 31.2 L RDW 13.2 Plt Count 175 MPV 10.6 H Immature Gran % (Auto) 0.3 Neut % (Auto) 60.5 Lymph % (Auto) 29.1 [place] % (Auto) 8.0 Eos % (Auto) 1.6 Baso % (Auto) 0.5 Lymph # (Auto) 1.79 [place] # (Auto) 0.5 Eos # (Auto) 0.1 Baso # (Auto) 0.0 Abs Immat Gran (auto) 0.02 Absolute Neuts (auto) 3.7 Absolute Nucleated RBC 0.000 Nucleated RBC % 0.0 Sodium 137 Potassium 4.0 Chloride 106 Carbon Dioxide 27 Anion Gap 4 BUN 13 Creatinine 0.75 Estim Creat Clear Calc 76 Estimated GFR > 60 Glucose 95 Calcium 8.2 L Quality VTE Prophylaxis VTE prophylaxis: mechanical ordered
[2025-06-12] MEDS: ONDANSETRON INJ 4 MG/2 ML VIAL IV PUSH (09:34)
[2025-06-12 09:44] VITALS: BP 98/52; PULSE 80; RESP 18; TEMP 36.3; O2SAT 100
--- NOTE | 2025-06-12 11:25 | P.DS_ITS ---
DS: Admitting Diagnosis Discharge Date 06/12/25 Admitting Diagnosis Calculus, ureteral DS: Discharge Diagnosis Discharge Diagnosis (1) Calculus, ureteral: Code(s): N20.1 - Calculus of ureter Status: Acute Assessment and Plan: Patient here with nausea, vomiting, and abdominal pain starting at 8:00 a.m. on 06/10. CT performed on 06/10 significant for bilateral medullary nephrocalcinosis and multiple bilateral renal stones proximal left ureteral stone with mild to moderate left hydroureteronephrosis. Patient has history of kidney stones, last occurrence in 2022 which required lithotripsy and stent placement. No current endorsement of systemic symptoms. UA showed soft indicators of UTI, see below. Urology consulted. ED provider spoke with on- call urologist, plan for cystoscopy on 06/11. - cystoscopy planned for 06/11, NPO at midnight - urology consulted - pain medication p.r.n.: Tylenol, [place], Dilaudid - IV fluids - treatment of possible UTI (2) Hydroureteronephrosis: Code(s): N13.30 - Unspecified hydronephrosis Status: Acute Assessment and Plan: See above. (3) Medullary nephrocalcinosis: Code(s): E83.59 - Other disorders of calcium metabolism; N29 - Other disorders of kidney and ureter in diseases classified elsewhere Status: Acute Assessment and Plan: See above. (4) Abnormal urinalysis: Code(s): R82.90 - Unspecified abnormal findings in urine Status: Acute Assessment and Plan: Patient here with medullary nephrocalcinosis, multiple bilateral renal stones, proximal left ureteral stone with complicating hydroureteronephrosis. No current urinary symptoms, however the patient has trace leuk esterase and 6-10 WBC with no epithelial cells. Given yes ureteral stone complication with hydroureteronephrosis, will err on the side of caution and start antibiotics. - UC pending - previous micro reviewed, no previous resistances - started on Ceftriaxone started on 06/10 Plan Diet: Regular, NPO midnight GI Prophylaxis: N/a DVT Prophylaxis: SCDs IV fluids: 1L bolus -> 125 mL/hr Lines/Tubes: pIV Code Status: Full code DS: Summary Hospital Course Reason for hospitalization: Ureteral calculus Hospital Course: The patient is a 35-year-old female with a history of recurrent nephrolithiasis who presented on 06/10/25 with acute onset nausea, vomiting, and left-sided lower abdominal and flank pain similar to prior kidney stone episodes. Initial evaluation showed stable vital signs, no leukocytosis, preserved renal function, and urinalysis notable for significant hematuria with trace leukocyte esterase and mild pyuria without bacteriuria. CT abdomen/pelvis demonstrated bilateral medullary nephrocalcinosis, multiple bilateral renal calculi, and a 1.1 cm proximal left ureteral stone with [id number] left hydroureteronephrosis. She was admitted for pain control, IV fluids, and urologic management. Given concern for possible obstructive uropathy with early infectious risk, she was started on IV ceftriaxone and urine culture was obtained. Urology was consulted and recommended operative intervention. The patient remained afebrile and hemodynamically stable with controlled pain and no recurrent vomiting. On 06/11/25, she underwent planned cystoscopy with left retrograde pyelogram and left ureteral stent placement for decompression, with definitive stone management deferred to a later date after passive ureteral dilation. Post- procedure, the plan was for discharge once pain and nausea were controlled, she was ambulating, tolerating oral intake, and voiding spontaneously. Outpatient follow-up with urology for definitive stone treatment and referral to nephrology for management of medullary nephrocalcinosis were recommended. In the p.m. of 06/11, however patient did have an extreme amount of pain despite IV Dilaudid, patient was held overnight and reassessed on 06/12. She endorsed significant pain improvement. At this time she has been transitioned to oral pain control with [place] and can be discharged safely at this time. She will be discharged with [place] for p.r.n. pain control for the next few days and instructed to follow-up with urology next week for follow-up appointment. Blood work and vital signs have remained stable and she is able to eat/drink without difficulty and has minimal nausea. Plan for discharge home at this time. She is amenable to this plan. Status at Discharge Functional status at discharge: independent ambulation Overall status at discharge: patient is back to baseline Time Spent with Patient Time attestation: Total time spent providing and/or coordinating discharge services: 29 Exam Const: Other: , female, young, nontoxic appearance HENMT: Mouth: Yes moist mucous membranes Resp: Effort & Inspection: normal respiratory effort Auscultation: clear to auscultation bilaterally Cardio: Rate: regular rate Rhythm: regular rhythm Other: S1-S2 present without murmur, rub, ectopy GI: Other: Nontender to palpation. Abdomen otherwise soft, nondistended. Normal bowel sounds in all quadrants. : Other: + left CVA tenderness Neuro: Other: A&O x4 Psych: Other: Good insight and judgment, pleasant Discharge Plan Discharge Attending physician on discharge: Fredrick Venegas Consulting providers: Finesse Torre; Dieter Raines; Cayetano Nowak Discharging Clinician: Dieter Raines Anticipated Discharge Date/Time: 06/11/25 14:18 Patient Disposition: Home Activity: as tolerated Diet: regular Discharge Instructions: UROLOGY DISCHARGE INSTRUCTIONS: Instructions for your ureteral stent:?? It is normal to have blood in the urine, urinary frequency and/or urgency, and abdominal/back cramping with a ureteral stent.? Take the medications we have have provided you to control these symptoms.? Medications: - Tamsulosin ? take this medication once a day at bedtime which will help to minimize discomfort from your ureteral stent - Solifenacin (AKA Vesicare) ? take this medication once daily as needed to minimize ureteral stent discomfort - Pyridium (AKA Phenazopyridine) ? take this medication as needed 3 times daily over the next 3 days to minimize urinary discomfort.? Please note that this me dication will make your urine appear reddish-orange while you take it; this is a normal side effect of the medication Activity:? Advance as tolerated. Diet: No restrictions. Work: OK to return to work as you see fit. Pain: Try [id number] Tylenol or Ibuprofen first, if this doesn't help then take the prescriptions we may have provided you. Please note: It is normal to have some blood in your urine.? This is expected given the urologic procedure and as long as you have a ureteral stent in place. Notify us if: Fevers greater than 100.4 Fahrenheit, pain uncontrolled with medications, persistent vomiting, inability to urinate or if you are passing large blood clots in your urine, or if you have any questions. Follow up:? The urology office will contact you in the upcoming days to schedule your follow-up surgery for definitive management of your left ureteral stone. Call the urology clinic at with any questions or concerns. Discharge disposition: Home Take medications as prescribed Monitor blood pressures Take caution while standing, rising, or moving Change positions slowly taking a break between each position change If you standing feel dizzy sit back down and take a break Encouraged to continue with yearly vaccinations Return to the emergency department if you develop sudden shortness of breath, chest pain, nausea, vomiting, upset stomach or intractable diarrhea Return to the emergency department if you develop fever greater than 101.5 Follow-up with the primary care physician within 1-2 weeks Follow-up with urology for further management of placement of your ureteral stent. Thank you for choosing [facility] for your healthcare needs Patient Instructions: Antibiotic Form Patient Language: Faroese Stand Alone Forms: General Discharge Information Follow-up/Referrals: PHYSICIAN,PLATFORM MATERIAL HANDLING SUPERVISOR [Primary Care Provider, Internal Medicine] Brayden Epstein MD [Physician, Urology] Matheus Jones MD [Physician, Nephrology] Referral Note: Call to make appointment Discharge Medications: New tamsulosin 0.4 mg capsule 0.4 mg PO HS Qty: 30 1RF phenazopyridine [Pyridium] 100 mg tablet 100 mg PO TID PRN (Reason: Urinary discomfort) 3 Days Qty: 9 0RF solifenacin 5 mg tablet 5 mg PO DAILY Qty: 30 1RF hydrocodone-acetaminophen 5-325 mg Tablet 1 tablet PO Q4H PRN (Reason: Pain Rated 4-6) Qty: 12 0RF Date of admission: 06/10/25 18:55 Primary Care Provider: PHYSICIAN,PLATFORM MATERIAL HANDLING SUPERVISOR Admitting Provider: Fredrick Venegas Attending physician on admission: Fredrick Venegas Condition: Stable Quality VTE Prophylaxis VTE prophylaxis: mechanical ordered
--- NOTE | 2025-06-12 12:52 | WPDUROPN2 ---
Progress Note: A&P Assessment and Plan (1) Calculus, ureteral: Code(s): N20.1 - Calculus of ureter Status: Acute (2) Medullary nephrocalcinosis: Code(s): E83.59 - Other disorders of calcium metabolism; N29 - Other disorders of kidney and ureter in diseases classified elsewhere Status: Acute Plan [id number] with history of urolithiasis and medullary calcinosis found to have a 1.1 cm left proximal ureteral stone -POD 1 1. Cystoscopy 2. Left retrograde pyelogram with intraoperative interpretation 3. Stone manipulation without extraction 4. Left ureteral stent placement - Urology will arrange for patient's definitive stone management surgery in the upcoming weeks after a period of passive ureteral dilation - Patient would benefit from outpatient referral to nephrology for medical management of medullary calcinosis. - From a urology standpoint, the patient can be discharged home today. -Urine cultures pending. Culture driven antibiotics per primary team once resulted. - Remainder of management per primary Subjective Subjective Date/Time Seen: 06/12/25 12:52 Interval history: Patient seen and examined at bedside. patient is POD 1 1. Cystoscopy 2. Left retrograde pyelogram with intraoperative interpretation 3. Stone manipulation without extraction. 4. Left ureteral stent placement Plan was to undergo cystoscopy on 06/11 with hopeful discharge postprocedure Patient tolerated the procedure without any complications. Review of Systems Review of Systems: A 12 point review of systems was performed and is negative except as noted in HPI. Exam Narrative: General: Alert, no acute distress Head: Normocephalic, atraumatic Eyes: Extraocular movements intact Neck: No JVD, trachea midline Respiratory: Symmetric chest rise, nonlabored breathing on room air CV: Normal rate, adequate peripheral perfusion Abdomen: Soft, nontender, nondistended : Left CVAT Skin: Warm/dry Extremities: No peripheral edema, no cyanosis Neuro: No focal deficits Psych: Answers questions appropriately, appropriate mood Objective Data Vital Signs Vital Signs: Vital Signs - 24 hr 06/11/25 13:50 06/11/25 14:54 06/11/25 15:00 Temperature 97.9 F 97.6 F Pulse Rate 60 85 65 Respiratory Rate 16 14 12 Blood Pressure 109/65 132/70 112/67 Pulse Oximetry 98 100 100 Oxygen Delivery Room Air Simple Face Mask Simple Face Mask Oxygen Flow Rate 8 8 06/11/25 15:15 06/11/25 15:30 06/11/25 15:42 Temperature Pulse Rate 61 67 68 Respiratory Rate 12 12 12 Blood Pressure 107/70 112/69 111/70 Pulse Oximetry 100 100 100 Oxygen Delivery Simple Face Mask Room Air Room Air Oxygen Flow Rate 8 06/11/25 20:00 06/11/25 23:45 06/12/25 04:29 Temperature 97.1 F L 96.8 F L 97.3 F L Pulse Rate 86 60 79 Respiratory Rate 18 16 18 Blood Pressure 117/57 L 99/55 L 99/63 L Pulse Oximetry 99 98 100 Oxygen Delivery Oxygen Flow Rate 06/12/25 08:00 06/12/25 09:44 Temperature 97.3 F L Pulse Rate 80 Respiratory Rate 18 Blood Pressure 98/52 L Pulse Oximetry 100 Oxygen Delivery Room Air Oxygen Flow Rate Intake/Output Intake/Output: Intake & Output 06/09/25 06/10/25 06/11/25 06/12/25 23:59 23:59 23:59 23:59 Intake Total 1050 2622 2462 Balance 1050 2622 2462 Meds/Results Medications: Active Medications Generic Name Dose Route Start Last Admin Trade Name Freq PRN Reason Stop Dose Admin Acetaminophen 650 mg 06/10/25 20:13 Acetaminophen 325 Mg Tablet PO Q6H PRN Mild Pain (1-3) or Fever Hydrocodone Bitart/Acetaminophen 1 tab 06/10/25 20:13 06/12/25 09:14 Hydrocodone/Acetaminophen (*Crx) 5-325 Mg Tablet PO 1 tab Q4H PRN Administration Pain Rated 4-6 Docusate Sodium 100 mg 06/10/25 20:13 Docusate Sodium 100 Mg Capsule PO Q12H PRN Constipation Fentanyl Citrate 25 mcg 06/11/25 13:28 Fentanyl Citrate Inj (*Crx) 100 Mcg/2 Ml Vial IV PUSH Q2M PRN Pain Hydromorphone HCl 1 mg 06/10/25 20:13 06/11/25 22:52 Hydromorphone Hcl Inj (*Crx) 1 Mg/Ml Syr IV PUSH 1 mg Q3H PRN Administration Pain Rated 7-10 Lactated Ringer's 1,000 mls @ 125 mls/hr 06/10/25 18:55 06/12/25 12:03 Lr - Lactated Ringers Iv IV CONT Not Given .Q8H ANNIE Ceftriaxone Sodium 1 gm/ 50 mls @ 100 mls/hr 06/10/25 21:00 06/11/25 21:06 Sodium Chloride IVPB Infused Q24H ANNIE Infusion Ondansetron HCl 4 mg 06/10/25 18:55 06/12/25 09:34 Ondansetron Inj 4 Mg/2 Ml Vial IV PUSH 4 mg Q4H PRN Administration Nausea Ondansetron HCl 4 mg 06/11/25 13:28 Ondansetron Inj 4 Mg/2 Ml Vial IV PUSH ONCE PRN Nausea Polyethylene Glycol 17 gm 06/10/25 20:13 Polyethylene Glycol 3350 17 Gm Powd.Pack PO QAM PRN Constipation Radiology Results: ITS Impressions Abdomen/Pelvis CT 06/10/25 18:18 IMPRESSION: 1. Bilateral medullary nephrocalcinosis and multiple bilateral renal stones proximal left ureteral stone with mild to moderate left hydroureteronephrosis. Abdomen X-Ray 06/10/25 19:10 IMPRESSION: Medullary nephrocalcinosis. Nonobstructive bowel gas pattern. Retrograde Pyelogram 06/11/25 15:04 IMPRESSION: 1. Left internal ureteral stent placement. Please refer to real-time procedural findings for details.
[2025-06-12] MEDS: INFLUENZA VACCINE 45 MCG/0.5 ML SYRINGE IM (14:04)
== END 2025-06-12 14:09 | disposition home or self-care (01) ==
LOC: ANHED 19:01 → ANH3MEDSUR 19:54
PROVIDERS: Emergency Medicine; Student in an Organized Health Care Education/Training Program; Urology; Admitting Provider Internal Medicine; Emergency Provider Emergency Medicine; Visit Provider Physician Assistant
PROC: (CPT 52352; principal; 2025-06-11 14:00)
DX: N13.2 Hydronephrosis with renal and ureteral calculous obstruction (principal); E83.59 Other disorders of calcium metabolism; N29 Other disorders of kidney and ureter in diseases classified elsewhere; R82.90 Unspecified abnormal findings in urine; Z23 Encounter for immunization; Z87.442 Personal history of urinary calculi; Z20.822 Contact with and (suspected) exposure to COVID-19
CPT/HCPCS: 52332; 52352; 36415; 74018; 74176; 74420; 80048; 80053; 81001; 81025; 83690; 85025; 87070; 87075; 87086; 87205; 87637; 90471; 90656; 96361; 96365; 96374; 96375; 96376; 99285; J0690; A9270; C1758; C1769; C2617; G0008; G0378; J0696; J1100; J1171; J2250; J2405; J2704; J3010; J7120; Q9966